=== PATIENT | female | born 1950 | race Caucasian/White ===

== ENCOUNTER 2018-07-23 14:56 | Inpatient (IN) | payer MEDICARE ==
--- NOTE | 2018-07-23 15:40 | ED ---
General Adult HPI - General Chief complaint: Nausea/Vomiting/Diarrhea Stated complaint: Vomiting,headache, fall 2 days ago lt wrist injury Time Seen by Provider: 07/23/18 15:13 Source: patient Mode of arrival: ambulatory Limitations: language barrier - History of Present Illness Initial comments: 67-year-old female with past medical history of hypertension presenting today for chief complaint of headache, nausea vomiting and recent fall. Patient states 4 days prior she fell on ice on left outstretched wrist, she states she did hit her head, denies any loss of conscious. Patient denies any muscle weakness, sensation deficits, visual changes, speech or gait changes. Patient states the days following the fall she felt fine she denied headache at this time. 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 Patient states the stress her out, she states since then she has had a headache. Patient states that early this morning she began to experience vomiting denies any hematemesis. Patient denies any diarrhea, fever , chills, abdominal pain. Patient states she has not taken her blood pressure medication in the past 2 days. Patient states she does have a prescription at home. In addition patient noted that she had left wrist pain since the fall, she noted bruising as well as swelling of the left wrist with decreased range of motion secondary to pain. Remaining review of system negative, patient denies any recent shortness of breath, chest pain, back pain/neck pain, numbness or tingling, dysuria or hematuria, constipation or diarrhea, or any other complaints. Upon arrival pt BP elevated, remaining VS within acceptable limits. - Related Data Home Medications Medication Instructions Recorded Confirmed Nebivolol HCl [Bystolic] 20 mg PO DAILY 07/23/18 07/23/18 Olmesartan/Amlodipin/Hcthiazid 1 tab PO DAILY 07/23/18 07/23/18 [Tribenzor 40-5-12.5 mg Tablet] Allergies Allergy/AdvReac Type Severity Reaction Status Date / Time aspirin Allergy Rash/Hives Verified 07/23/18 15:18 Review of Systems ROS Statement: Those systems with pertinent positive or pertinent negative responses have been documented in the HPI. ROS Other: All systems not noted in ROS Statement are negative. Past Medical History Past Medical History: Hypertension History of Any Multi-Drug Resistant Organisms: None Reported Past Surgical History: Section Past Psychological History: No Psychological Hx Reported Smoking Status: Current every day smoker Past Alcohol Use History: None Reported Past Drug Use History: None Reported General Exam - General Exam Comments Initial Comments: General: The patient is awake and alert, in no distress, and does not appear acutely ill. Eye: +3mm pupils are equal, round and reactive to light, extra-ocular movements are intact. No nystagmus. There is normal conjunctiva bilaterally. No signs of icterus. Ears, nose, mouth and throat: There are moist mucous membranes and no oral lesions. Neck: The neck is supple, there is no tenderness or JVD. Cardiovascular: There is a regular rate and rhythm. No murmur, rub or gallop is appreciated. Respiratory: Lungs are clear to auscultation, respirations are non-labored, breath sounds are equal. No wheezes, stridor, rales, or rhonchi. Gastrointestinal: Soft, non-distended, non-tender abdomen without masses or organomegaly noted. There is no rebound or guarding present. No CVA tenderness. Bowel sounds are unremarkable. Musculoskeletal: Upon inspection of the list bilaterally there is significant soft tissue swelling of the left wrist as well as ecchymosis. Patient is able to range with slight limitation of the left wrist secondary to pain. Patient is tender to palpation over the distal radius. Normal ROM, no tenderness of the right wrist. Strength 5/5. Sensation intact of the upper extremities equal and comparison bilaterally including proximal and distal to injury site. Radial pulses equal bilaterally 2+. Compartments are soft and compressible. Patient is able to make the okay fingers crossed finger opposition thumbs-up extended wrist evidence of wristdrop. Ulnar median and radial nerves appear intact capillary refill less than 2 seconds. Neurological: A&O x 3. CN II-XII intact, There are no obvious motor or sensory deficits. Coordination appears grossly intact. Speech is normal. finger-nose rapid, [id number] coronary. No pronator drift. No gait ataxia. Skin: Skin is warm and dry and no rashes or lesions are noted. Psychiatric: Cooperative, appropriate mood & affect, normal judgment. Limitations: language barrier Course Vital Signs 07/23/18 07/23/18 07/23/18 14:58 16:17 16:40 Temperature 97.5 F L Pulse Rate 71 53 L Respiratory 24 18 Rate Blood Pressure 258/98 232/95 O2 Sat by Pulse 96 95 Oximetry 07/23/18 07/23/18 07/23/18 16:50 17:00 17:10 Temperature Pulse Rate 57 L 57 L 57 L Respiratory 15 19 16 Rate Blood Pressure 232/95 232/95 206/87 O2 Sat by Pulse 98 97 98 Oximetry 07/23/18 07/23/18 07/23/18 17:30 19:07 19:18 Temperature 97.6 F Pulse Rate 55 L 54 L Respiratory 18 16 Rate Blood Pressure 200/85 203/90 O2 Sat by Pulse 97 97 Oximetry EKG Findings - EKG Comments: EKG Findings:: Ventricular rate 54 bpm, AK interval 184 ms, QRS duration 96 ms, QT/QTC 494/468 ms. This is sinus bradycardia. Nonspecific T-wave abnormality. No ST elevation or depression. Medical Decision Making - Medical Decision Making Patient is on a blood pressure with headache nausea vomiting. Distant history of head trauma 4 days ago. No anticoagulant use. There is no acute intracranial process on CT studies. CT imaging studies were reviewed and discussed with attending provider Dr. Olivas. Pt BP remained elevated is noncompliant with medication. Patient was given a total of 10 mg of hydralazine while in the emergency department. Pt did have T wave inversions without elevation of troponin. No ST elevation or depression EKG was reviewed by Dr. Mancini prior to shift change. Cardiology will be placed on consult, will repeat troponin. Pt placed on telemetry. Admission was accepted by physician instruction assistant principal rounding for Dr. Merino, after discussing case with Dr. Olivas. She did not have further orders. Pt remains hypertensive but stable in the ER. Left nondisplaced distal radius fracture was splinted prior to pt transfer to the floor. - Lab Data Result diagrams: 07/23/18 15:25 07/23/18 15:25 Lab Results 07/23/18 07/23/18 07/23/18 Range/Units 15:25 15:25 15:25 WBC 10.5 (3.8-10.6) k/uL RBC 5.57 H (3.80-5.40) m/uL Hgb 16.2 H (11.4-16.0) gm/dL Hct 47.5 H (34.0-46.0) % MCV 85.3 (80.0-100.0) fL MCH 29.0 (25.0-35.0) pg MCHC 34.0 (31.0-37.0) g/dL RDW 13.2 (11.5-15.5) % Plt Count 202 (150-450) k/uL Neutrophils % 88 % Lymphocytes % 8 % Monocytes % 2 % Eosinophils % 1 % Basophils % 0 % Neutrophils # 9.2 H (1.3-7.7) k/uL Lymphocytes # 0.9 L (1.0-4.8) k/uL Monocytes # 0.2 (0-1.0) k/uL Eosinophils # 0.1 (0-0.7) k/uL Basophils # 0.0 (0-0.2) k/uL Sodium 143 (137-145) mmol/L Potassium 3.8 (3.5-5.1) mmol/L Chloride 109 H (98-107) mmol/L Carbon Dioxide 26 (22-30) mmol/L Anion Gap 8 mmol/L BUN 23 H (7-17) mg/dL Creatinine 0.74 (0.52-1.04) mg/dL Est GFR (CKD-EPI)AfAm >90 (>60 ml/min/1.73 sqM) Est GFR (CKD-EPI)NonAf 84 (>60 ml/min/1.73 sqM) Glucose 144 H (74-99) mg/dL Calcium 9.8 (8.4-10.2) mg/dL Total Bilirubin 1.3 (0.2-1.3) mg/dL AST 17 (14-36) U/L ALT 23 (9-52) U/L Alkaline Phosphatase 109 (38-126) U/L Troponin I <0.012 (0.000-0.034) ng/mL Total Protein 7.4 (6.3-8.2) g/dL Albumin 4.4 (3.5-5.0) g/dL Lipase 86 (23-300) U/L Disposition Clinical Impression: Elevated blood pressure reading, Nausea and vomiting, Headache, Distal radius fracture, left Disposition: ADMITTED IP TO THIS [facility] Condition: Stable Is patient prescribed a controlled substance at d/c from ED?: No Time of Disposition: 16:49 Decision to Admit Reason: Admit from EC Decision Date: 07/23/18 Decision Time: 16:49
[2018-07-23 15:44] LABS: Basophils % (A) 0 %; Eosinophils # (A) 0.1 k/uL (0-0.7); Eosinophils % (A) 1 %; HCT 47.5 % (34.0-46.0); HGB 16.2 gm/dL (11.4-16.0); Lymphocytes # (A) 0.9 k/uL (1.0-4.8); Lymphocytes % (A) 8 %; MCV 85.3 fL (80.0-100.0); Mean Platelet Volume 7.6; Monocytes # (A) 0.2 k/uL (0-1.0); Monocytes % (A) 2 %; Neutrophils # (A) 9.2 k/uL (1.3-7.7); Neutrophils % (A) 88 %; Platelet Count 202 k/uL (150-450); RBC 5.57 m/uL (3.80-5.40); RDW 13.2 % (11.5-15.5); WBC 10.5 k/uL (3.8-10.6)
--- NOTE | 2018-07-23 16:01 | CT ---
EXAMINATION TYPE: CT brain sudarshan suero DATE OF EXAM: 07/23/2018 COMPARISON: None HISTORY: Fall with posterior head injury. Head and neck pain CT DLP: 1319.3 mGycm Automated exposure control for dose reduction was used. TECHNIQUE: CT scan of the head and cervical spine are performed without contrast. FINDINGS: Intracranial atherosclerotic changes are noted. There is a area of low attenuation left f rontal lobe compatible with remote ischemia. Moderate generalized degenerative change with a greater frontal lobe component. No acute hemorrhage or mass effect. Extensive calcification involving the int racranial carotid arteries are noted extending in the M1 segment of the right MCA. A nonspecific low attenuation the white matter bilaterally is most typical remote microvascular ischemia. Assessment spinal canal limited by noncontrast technique, resolution and artifact. Multilevel facet a rthropathy and degenerative disc disease with large hypertrophic spurs anteriorly noted. There is a p unctate nodular density within the right lung apex. Short-term follow-up CT scan recommended IMPRESSION: 1. There is no acute fracture or dislocation evident in the cervical spine. 2. No acute intracranial hemorrhage, mass effect, or midline shift is seen. 3. Degenerative and remote ischemic change as discussed above. There is extensive intracranial athero sclerotic changes correlate clinically. 4. A 2 mm right upper lobe pulmonary nodule recommend [address] chest. 5. Extensive large anterior hypertrophic spurs.
[2018-07-23 16:04] LABS: ALT 23 U/L (9-52); AST 17 U/L (14-36); Albumin 4.4 g/dL (3.5-5.0); Alkaline Phosphatase 109 U/L (38-126); Anion Gap 8 mmol/L; Blood Urea Nitrogen 23 mg/dL (7-17); Calcium 9.8 mg/dL (8.4-10.2); Carbon Dioxide 26 mmol/L (22-30); Chloride 109 mmol/L (98-107); Glucose 144 mg/dL (74-99); Lipase 86 U/L (23-300); Potassium 3.8 mmol/L (3.5-5.1); Sodium 143 mmol/L (137-145); Total Bilirubin 1.3 mg/dL (0.2-1.3); Total Protein 7.4 g/dL (6.3-8.2)
[2018-07-23] MEDS ORDERED: ONDANSETRON 4 MG/2 ML VIAL IVP STA (16:04)
[2018-07-23] MEDS ORDERED: hydrALAZINE HCL 20 MG/ML 1 ML VIAL IVP STA ×2 (16:18→18:06)
--- NOTE | 2018-07-23 16:25 | XR ---
EXAMINATION TYPE: XR chest 2V DATE OF EXAM: 07/23/2018 COMPARISON: None HISTORY: Cough, trauma and pain TECHNIQUE: Frontal and lateral views of the chest are obtained. FINDINGS: There is no focal air space opacity, pleural effusion, or pneumothorax seen. The cardiac silhouette size is enlarged. Linear increased density compatible with minor fissure thickening noted on the right. Arthropathy noted in the shoulders. There are overlying artifacts. The aorta is dense. The osseous structures are intact. IMPRESSION: Cardiomegaly
--- NOTE | 2018-07-23 16:29 | XR ---
EXAMINATION TYPE: XR hand complete LT DATE OF EXAM: 07/23/2018 COMPARISON: NONE HISTORY: Pain TECHNIQUE: Three views are submitted. FINDINGS: Diffuse osteopenia. Arthropathy of the PIP and DIP joints of all digits. Severe arthropathy of the fi rst carpal metacarpal joint. Appears to be a fracture involving the distal radius. IMPRESSION: 1. Diffuse osteopenia with a suspected fracture involving the distal radius.
--- NOTE | 2018-07-23 16:30 | XR ---
EXAMINATION TYPE: XR wrist complete LT DATE OF EXAM: 07/23/2018 COMPARISON: NONE HISTORY: Pain TECHNIQUE: Four views submitted. FINDINGS: There is arthropathy of the first carpal metacarpal joint. Diffuse osteopenia. There is a cortical st ep-off involving the distal radius suspicious for fracture with adjacent soft tissue edema. Cortical step-off particularly noted along the posterior surface of the radius on the lateral view. IMPRESSION: 1. Findings suggestive of a fracture minimally displaced distal radius extending toward the articular surface.
[2018-07-23] MEDS ORDERED: NALOXONE 0.4 MG/ML 1 ML VIAL IV PRN (16:47)
[2018-07-23 19:43] VITALS: BMI 29.0
[2018-07-23] MEDS: NITROGLYCERIN SL TABS 0.4 MG TAB SUBLINGUAL STA ×2 (19:51→19:58)
[2018-07-23] MEDS ORDERED: DILTIAZEM DRIP BOLUS FROM BAG 1 MG SOLN IV ONE (20:29)
[2018-07-23] MEDS ORDERED: HEPARIN SODIUM,PORCINE 5,000 UNIT/ML 1 ML VIAL IV PRN (20:34)
[2018-07-23] MEDS ORDERED: HEPARIN SODIUM,PORCINE 5,000 UNIT/ML 1 ML VIAL IV ONE (20:34)
[2018-07-23] MEDS ORDERED: ACETAMINOPHEN TAB 325 MG TAB PO PRN (21:00)
[2018-07-23] MEDS ORDERED: ONDANSETRON 4 MG/2 ML VIAL IVP PRN (21:00)
[2018-07-23] MEDS ORDERED: OLMESARTAN PO SCH (21:00)
[2018-07-23] MEDS ORDERED: HCTHIAZID PO SCH (21:00)
[2018-07-23] MEDS ORDERED: AMLODIPIN PO SCH (21:00)
[2018-07-23] MEDS ORDERED: [UNRECOGNIZED DRUG - OTHER] PO SCH (21:00)
[2018-07-23] MEDS ORDERED: LOSARTAN 50 MG TAB PO SCH (21:20)
[2018-07-23] MEDS ORDERED: amLODIPine 5 MG TAB PO SCH (21:20)
[2018-07-23] MEDS: HEPARIN SOD,PORK IN 0.45% NACL 25,000 UNIT in 0.45% NACL 1 250ML.BAG IV SCH (21:30)
[2018-07-23] MEDS: DILTIAZEM 125 MG in SODIUM CHLORIDE 0.9% 100 ML IV SCH (21:31)
[2018-07-23] MEDS: SODIUM CHLORIDE 0.9% 1,000 ML IV SCH (21:31)
[2018-07-23] MEDS: HYDROCHLOROTHIAZIDE 12.5 MG CAP PO SCH (22:32)
[2018-07-24 04:35] LABS: Basophils % (A) 0 %; Eosinophils % (A) 0 %; HCT 44.2 % (34.0-46.0); HGB 14.4 gm/dL (11.4-16.0); Lymphocytes # (A) 1.1 k/uL (1.0-4.8); Lymphocytes % (A) 10 %; MCH 28.8 pg (25.0-35.0); MCHC 32.6 g/dL (31.0-37.0); MCV 88.4 fL (80.0-100.0); Mean Platelet Volume 7.7; Monocytes # (A) 0.4 k/uL (0-1.0); Monocytes % (A) 4 %; Neutrophils # (A) 9.4 k/uL (1.3-7.7); Neutrophils % (A) 85 %; Platelet Count 188 k/uL (150-450); RDW 13.6 % (11.5-15.5)
[2018-07-24 04:42] LABS: Anion Gap 7 mmol/L; Blood Urea Nitrogen 26 mg/dL (7-17); Calcium 9.1 mg/dL (8.4-10.2); Carbon Dioxide 26 mmol/L (22-30); Chloride 108 mmol/L (98-107); Glucose 106 mg/dL (74-99); Potassium 3.6 mmol/L (3.5-5.1); Sodium 141 mmol/L (137-145)
[2018-07-24] MEDS: LOSARTAN 50 MG TAB PO SCH (08:36)
[2018-07-24] MEDS: DILTIAZEM 125 MG in SODIUM CHLORIDE 0.9% 100 ML IV SCH (08:36)
[2018-07-24] MEDS: HYDROCHLOROTHIAZIDE 12.5 MG CAP PO SCH (08:36)
--- NOTE | 2018-07-24 09:27 | P.CRDCN ---
History of Present Illness Consult date: 07/24/18 Requesting physician: Violette Merino Consult reason: chest pain, hypertension, atrial fibrillation Chief complaint: Dizziness History of present illness: This is a 67-year-old female with known history of hypertension, nondiabetic, no hyperlipidemia, nicotine dependence, who presented to the hospital on this occasion with symptoms of dizziness with associated nausea and vomiting. She did have a fall a few days prior to her admission here, patient also had not taken her blood pressure medication for the past 2 days prior to her admission here. While in the hospital here patient states she had an episode of chest discomfort which radiated up into her neck and jaw area. Her initial EKG on presentation here showed a sinus bradycardia with evidence of left ventricular hypertrophy, T wave inversion noted in the inferior and lateral leads. Around 7:30 last evening patient went into atrial fibrillation with a rapid ventricular response, she was initiated on IV heparin and Cardizem drip. At 11:00 she converted back to normal sinus rhythm and continues to have T-wave inversion noted in the inferior lateral leads. Patient denies any prior history of atrial fibrillation in the past. Her blood pressure on arrival here was 258/98, heart rate in the 70s, 96% on room air. Blood pressure this morning 152/70 with a heart rate in the 60s, 96% on room air. White blood cell count 10.5 on admission, 11 this morning, hemoglobin 16.2 on admission, 14.4 this morning. Platelet count 188. Sodium 141, potassium 3.6, BUN 26 and creatinine 0.5. Initial troponin 0.012, subsequent troponin 0.601. Chest x-ray showed cardiomegaly with no cardiopulmonary process which appears to be acute. A CAT scan of the neck and spine was performed which did not reveal acute fracture or dislocation of the spine, no acute intracranial hemorrhage or mass effect or midline shift noted. A 2 mm right upper lobe pulmonary nodule was noted. Extensive large anterior hypertrophic spurs noted. Left hand x-ray shows diffuse osteopenia with suspected fracture involving the distal radius. Wrist fracture shows fracture minimally displaced distal radius extending towards the articular surface. At the time of my examination this morning, patient is quite comfortable. Denies any dizziness at present. No chest discomfort at present. Currently in normal sinus rhythm. Past Medical History Past Medical History: Hypertension History of Any Multi-Drug Resistant Organisms: None Reported Past Surgical History: Section Past Anesthesia/Blood Transfusion Reactions: No Reported Reaction Past Psychological History: No Psychological Hx Reported Smoking Status: Current every day smoker Past Alcohol Use History: None Reported Past Drug Use History: None Reported - Past Family History Father Family Medical History: CVA/TIA Mother Family Medical History: No Reported History Medications and Allergies Home Medications Medication Instructions Recorded Confirmed Type Nebivolol HCl [Bystolic] 20 mg PO DAILY 07/23/18 07/23/18 History Olmesartan/Amlodipin/Hcthiazid 1 tab PO DAILY 07/23/18 07/23/18 History [Tribenzor 40-5-12.5 mg Tablet] Allergies Allergy/AdvReac Type Severity Reaction Status Date / Time aspirin Allergy Rash/Hives Verified 07/23/18 15:18 Physical Exam Vitals: Vital Signs Temp Pulse Pulse Resp BP BP Pulse Ox 07/24/18 04:00 98.5 F 64 18 152/70 96 07/24/18 00:00 97.7 F 68 18 155/70 96 07/23/18 22:25 177/111 07/23/18 21:30 163/112 07/23/18 20:40 169/106 07/23/18 19:30 98.3 F 124 H 18 221/100 95 07/23/18 19:18 97.6 F 54 L 16 97 07/23/18 19:07 203/90 07/23/18 18:00 98.3 F 123 H 17 209/111 95 07/23/18 17:30 55 L 18 200/85 97 07/23/18 17:10 57 L 16 206/87 98 07/23/18 17:00 57 L 19 232/95 97 07/23/18 16:50 57 L 15 232/95 98 07/23/18 16:40 53 L 18 232/95 95 07/23/18 16:17 258/98 07/23/18 14:58 97.5 F L 71 24 96 Intake and Output 07/23/18 07/24/18 07/24/18 22:59 06:59 14:59 Intake Total 10 350.833 Balance 10 350.833 Intake: IV 10 Invasive Line 1 10 Intake, IV Titration 110.833 Amount Diltiazem 125 mg In 110.833 Sodium Chloride 0.9% 100 ml @ 10 MG/HR 10 mls/hr IV .[id number] JAVON Rx#: [id number] Oral 240 Other: # Voids 2 Weight 78.1 kg PHYSICAL EXAMINATION: GENERAL: 67-year-old female in no acute distress at the time of my examination HEENT: Head is atraumatic, normocephalic. Pupils equal, round. Sclera a nicteric. Conjunctiva are clear. Mucous membranes of the mouth are moist. Neck is supple. There is no elevated jugular venous pressure. No carotid bruit is heard. HEART EXAMINATION: Heart S1, S2 normal. No murmur or gallop heard. CHEST EXAMINATION: Lungs are clear to auscultation and precussion. No chest wall tenderness is noted on palpation or with deep breathing. ABDOMEN: Soft, nontender. Bowel sounds are heard. No organomegaly noted. EXTREMITIES: 2+ peripheral pulses with no evidence of peripheral edema and no calf tenderness noted. Patient does have an [place] wrap cast applied to the left wrist. NEUROLOGIC patient is awake, alert and oriented 3. . Results 07/24/18 03:59 07/24/18 03:59 Cardiac Enzymes 07/23/18 07/23/18 07/24/18 Range/Units 15:25 15:25 06:09 AST 17 (14-36) U/L Troponin I <0.012 0.601 H* (0.000-0.034) ng/mL Coagulation 07/23/18 07/24/18 Range/Units 20:30 03:53 APTT 24.1 60.0 H (22.0-30.0) sec CBC 07/23/18 07/24/18 Range/Units 15:25 03:59 WBC 10.5 11.0 H (3.8-10.6) k/uL RBC 5.57 H 5.00 (3.80-5.40) m/uL Hgb 16.2 H 14.4 (11.4-16.0) gm/dL Hct 47.5 H 44.2 (34.0-46.0) % Plt Count 202 188 (150-450) k/uL Comprehensive Metabolic Panel 07/23/18 07/24/18 Range/Units 15:25 03:59 Sodium 143 141 (137-145) mmol/L Potassium 3.8 3.6 (3.5-5.1) mmol/L Chloride 109 H 108 H (98-107) mmol/L Carbon Dioxide 26 26 (22-30) mmol/L BUN 23 H 26 H (7-17) mg/dL Creatinine 0.74 0.75 (0.52-1.04) mg/dL Glucose 144 H 106 H (74-99) mg/dL Calcium 9.8 9.1 (8.4-10.2) mg/dL AST 17 (14-36) U/L ALT 23 (9-52) U/L Alkaline Phosphatase 109 (38-126) U/L Total Protein 7.4 (6.3-8.2) g/dL Albumin 4.4 (3.5-5.0) g/dL Current Medications Generic Name Dose Route Start Last Admin Trade Name Freq PRN Reason Stop Dose Admin Acetaminophen 650 mg 07/23/18 21:00 Tylenol Tab PO Q4HR PRN Fever and/ or Pain Heparin Sodium (Porcine) 0 unit 07/23/18 20:34 Heparin IV PER PROTOCOL PRN Low PTT Protocol Hydrochlorothiazide 12.5 mg 07/23/18 21:20 07/24/18 08:36 Hydrodiuril PO 12.5 mg DAILY JAVON Administration Sodium Chloride 1,000 mls @ 20 mls/hr 07/23/18 17:00 07/23/18 21:31 Saline 0.9% IV Not Given .Q24H JAVON Diltiazem HCl 125 mg/ Sodium 125 mls @ 10 mls/hr 07/23/18 20:30 07/24/18 08:36 Chloride IV 10 mg/hr .[id number] JAVON 10 mls/hr Administration 10 MG/HR Heparin Sodium/Sodium Chloride 250 mls @ 9.79 mls/hr 07/23/18 20:45 07/23/18 21:30 25,000 unit/ Sodium Chloride IV 12 units/kg/hr .Q24H JAVON 9.79 mls/hr Administration Protocol 12 UNITS/KG/HR Losartan Potassium 100 mg 07/24/18 09:00 07/24/18 08:36 Cozaar PO 100 mg DAILY JAVON Administration Naloxone HCl 0.2 mg 07/23/18 16:47 Narcan IV Q2M PRN Opioid Reversal Ondansetron HCl 4 mg 07/23/18 21:00 Zofran IVP Q6HR PRN Nausea And Vomiting Intake and Output 07/23/18 07/24/18 07/24/18 22:59 06:59 14:59 Intake Total 10 350.833 Balance 10 350.833 Intake: IV 10 Invasive Line 1 10 Intake, IV Titration 110.833 Amount Diltiazem 125 mg In 110.833 Sodium Chloride 0.9% 100 ml @ 10 MG/HR 10 mls/hr IV .[id number] JAVON Rx#: [id number] Oral 240 Other: # Voids 2 Weight 78.1 kg 07/24/18 03:59 07/24/18 03:59 EKG Interpretations (text) Initial EKG shows normal sinus rhythm with ST-T wave changes noted in the inferior lateral leads. Evidence of left ventricular hypertrophy. Subsequent EKG showed atrial fibrillation with rapid ventricular response, 30 EKG shows normal sinus rhythm with similar changes in the inferior lateral leads. Assessment and Plan Plan: Assessment and plan #1 symptoms of dizziness with associated nausea and vomiting #2 atrial fibrillation with rapid ventricular response, paroxysmal, patient currently in normal sinus rhythm #3 hypertensive urgency #4 history of hypertension #5 nicotine dependence #6 episode of chest discomfort with radiation to the jaw, could be secondary to atrial fibrillation with rapid ventricular response, cannot completely rule out underlying coronary artery disease. Initial troponin 0.012, subsequent troponin 0.601. Plan We will obtain an echocardiogram with Doppler study as well as a third troponin value. Continue IV heparin at this time and start the patient on a baby aspirin. We will also continue the losartan, discontinue Cardizem drip and start the patient on a beta john. We will also initiate a statin and obtain a fasting lipid profile. Further recommendations to follow. DNP note has been reviewed, I agree with a documented findings and plan of care. Patient was seen and examined.
[2018-07-24 09:58] LABS: Cholesterol 170 mg/dL (<200); HDL Cholesterol 58 mg/dL (40-60); LDL Cholesterol,Calculated 97 mg/dL (0-99); Triglycerides 73 mg/dL (<150)
[2018-07-24] MEDS: METOPROLOL TARTRATE 25 MG TAB PO SCH ×3 (10:59→22:01)
--- NOTE | 2018-07-24 11:24 | P.HPIM ---
History of Present Illness H&P Date: 07/24/18 This very pleasant for 67-year-old female with a past medical history significant for hypertension, hyperlipidemia comes into the hospital for above- mentioned complaints patient says that she is very upset at the severity of state as after waiting for 2 hours they failed her and the vision test and she did not renew her license. She left upset and she started having lightheadedness dizziness and then started having nausea vomiting. She said that she had a fall a few days ago and hit her head at that time she had not any headache. Last night the patient started having chest discomfort radiating to her neck and jaw. EKG was done which showed A. fib with RVR. Patient was thus started on IV heparin Cardizem drip. At this time of examination, the patient is not complaining of any chest pain racing heart says that she's feeling better, no cough or shortness of breath, nausea vomiting is better and she is able to eat now. No tingling numbness of his extremities, and no itch or rash. Review of Systems All systems: negative Past Medical History Past Medical History: Hypertension History of Any Multi-Drug Resistant Organisms: None Reported Past Surgical History: Section Past Anesthesia/Blood Transfusion Reactions: No Reported Reaction Past Psychological History: No Psychological Hx Reported Smoking Status: Current every day smoker Past Alcohol Use History: None Reported Past Drug Use History: None Reported - Past Family History Father Family Medical History: CVA/TIA Mother Family Medical History: No Reported History Medications and Allergies Home Medications Medication Instructions Recorded Confirmed Type Nebivolol HCl [Bystolic] 20 mg PO DAILY 07/23/18 07/23/18 History Olmesartan/Amlodipin/Hcthiazid 1 tab PO DAILY 07/23/18 07/23/18 History [Tribenzor 40-5-12.5 mg Tablet] Allergies Allergy/AdvReac Type Severity Reaction Status Date / Time aspirin Allergy Rash/Hives Verified 07/23/18 15:18 Physical Exam Vitals: Vital Signs Temp Pulse Pulse Resp BP BP Pulse Ox 07/24/18 08:00 97.9 F 62 18 159/71 94 L 07/24/18 04:00 98.5 F 64 18 152/70 96 07/24/18 00:00 97.7 F 68 18 155/70 96 07/23/18 22:25 177/111 07/23/18 21:30 163/112 07/23/18 20:40 169/106 07/23/18 19:30 98.3 F 124 H 18 221/100 95 07/23/18 19:18 97.6 F 54 L 16 97 07/23/18 19:07 203/90 07/23/18 18:00 98.3 F 123 H 17 209/111 95 07/23/18 17:30 55 L 18 200/85 97 07/23/18 17:10 57 L 16 206/87 98 07/23/18 17:00 57 L 19 232/95 97 07/23/18 16:50 57 L 15 232/95 98 07/23/18 16:40 53 L 18 232/95 95 07/23/18 16:17 258/98 07/23/18 14:58 97.5 F L 71 24 96 Intake and Output 07/23/18 07/24/18 07/24/18 22:59 06:59 14:59 Intake Total 10 438.833 Balance 10 438.833 Intake: IV 10 Invasive Line 1 10 Intake, IV Titration 198.833 Amount Diltiazem 125 mg In 110.833 Sodium Chloride 0.9% 100 ml @ 10 MG/HR 10 mls/hr IV .[id number] [facility] Rx#: [id number] Heparin Sod,Pork in 0.45% 28 NaCl 25,000 unit In 0.45 % NaCl 1 250ml.bag @ 12 UNITS/KG/HR 9.79 mls/hr IV .Q24H [facility] Rx#: [id number] Sodium Chloride 0.9% 1, 60 000 ml @ 20 mls/hr IV . Q24H [facility] Rx#:[id number] Oral 240 Other: # Voids 2 1 Weight 78.1 kg On exam, alert and oriented x3. HEENT: Conjunctivae normal. eyes normal. NECK: No JVD. No thyroid enlargement. No LNs CARDIOVASCULAR: S1, S2 muffled. No murmur RESPIRATION: Breath sounds diminished in the bases. No rhonchi or crackles. No bronchial breathing. ABDOMEN: Soft, nontender . No guarding. no masses palpable. No ascites, No hepatosplenomegaly.Bowel sounds heard. LEGS: No edema. no swelling NERVOUS SYSTEM: Cranial N 2-12 grossly normal. Moves all 4 limbs. No focal deficits. No sensory deficit. No signs of cerebellar dysfucntion. Skin: no ulcer no rash Joints: No active swelling. No inflammation. Lymphatic system. No LN neck axilla or groin. Results CBC & Chem 7: 07/24/18 03:59 07/24/18 03:59 Labs: Abnormal Lab Results - Last 24 Hours (Table) 07/23/18 07/23/18 07/24/18 Range/Units 15:25 15:25 03:53 WBC (3.8-10.6) k/uL RBC 5.57 H (3.80-5.40) m/uL Hgb 16.2 H (11.4-16.0) gm/dL Hct 47.5 H (34.0-46.0) % Neutrophils # 9.2 H (1.3-7.7) k/uL Lymphocytes # 0.9 L (1.0-4.8) k/uL APTT 60.0 H (22.0-30.0) sec Chloride 109 H (98-107) mmol/L BUN 23 H (7-17) mg/dL Glucose 144 H (74-99) mg/dL Troponin I (0.000-0.034) ng/mL 07/24/18 07/24/18 07/24/18 Range/Units 03:59 03:59 06:09 WBC 11.0 H (3.8-10.6) k/uL RBC (3.80-5.40) m/uL Hgb (11.4-16.0) gm/dL Hct (34.0-46.0) % Neutrophils # 9.4 H (1.3-7.7) k/uL Lymphocytes # (1.0-4.8) k/uL APTT (22.0-30.0) sec Chloride 108 H (98-107) mmol/L BUN 26 H (7-17) mg/dL Glucose 106 H (74-99) mg/dL Troponin I 0.601 H* (0.000-0.034) ng/mL Thrombosis Risk Factor Assmnt - Choose All That Apply Any of the Below Risk Factors Present?: Yes Each Factor Represents 1 point: Obesity (BMI >25) Other Risk Factors: Yes Each Risk Factor Represents 2 Points: Age 61-74 years Other congenital or acquired thrombophilia - If yes, enter type in comment: No Thrombosis Risk Factor Assessment Total Risk Factor Score: 3 Thrombosis Risk Factor Assessment Level: Moderate Risk Assessment and Plan Assessment: - Chest pain rule out non-STEMI - A. fib with RVR - Fraction of the left radius minimally displaced - Hypertension - Questionable compliance with medication - Hyperlipidemia - Nicotine dependence Plan - We'll admit the patient to [facility] with telemetry - We'll continue IV heparin - Continue present medications for now - Cardiology on board - Echocardiogram ordered - Continue splinting of the left wrist - DVT and GI prophylaxis - Patient is full code Time with Patient: Greater than 30
[2018-07-24] MEDS: amLODIPine 10 MG TAB PO SCH (11:32)
[2018-07-24] MEDS ORDERED: cloNIDine 0.1 MG/24HR PATCH TRANSDERM SCH (15:00)
--- NOTE | 2018-07-24 16:52 | ECHOF ---
Referral Reason:abn trop MEASUREMENTS -------- HEIGHT: 167.6 cm WEIGHT: 80.7 kg BP: IVSd: 1.8 cm (0.6 - 1.1) LVIDd: 3.7 cm (3.9 - 5.3) LVPWd: 2.1 cm (0.6 - 1.1) IVSs: 2.2 cm LVIDs: 2.3 cm LVPWs: 2.3 cm LAESV Index (A-L): 36.84 ml/m Ao Diam: 2.7 cm (2.0 - 3.7) AV Cusp: 1.9 cm (1.5 - 2.6) LA Diam: 3.2 cm (2.7 - 3.8) MV EXCURSION: 16.312 mm (> 18.000) MV EF SLOPE: 74 mm/s (70 - 150) EPSS: 0.7 cm MV E Shakir: 0.99 m/s MV DecT: 255 ms MV A Shakir: 0.71 m/s MV E/A Ratio: 1.39 RAP: 5.00 mmHg RVSP: 28.48 mmHg FINDINGS -------- Sinus rhythm. This was a technically good study. The left ventricular size is normal. There is severe concentric left ventricular hypertrophy. Ove rall left ventricular systolic function is normal with, an EF between 55 - 60 %. The right ventricle is normal in size and function. LA is moderately dilated 34-39 ml/m2 The right atrium is normal in size. Aortic valve is trileaflet and is mildly thickened. Mild mitral regurgitation is present. Mild tricuspid regurgitation present. The right ventricular systolic pressure, as measured by Doppl er, is 28.48mmHg. Pulmonic valve appears structurally normal. The aortic root size is normal. Normal inferior vena cava with normal inspiratory collapse consistent with estimated right atrial pre ssure of 5 mmHg. The pericardium is normal. CONCLUSIONS -------- 1. Sinus rhythm. 2. This was a technically good study. 3. The left ventricular size is normal. 4. There is severe concentric left ventricular hypertrophy. 5. Overall left ventricular systolic function is normal with, an EF between 55 - 60 %. 6. The right ventricle is normal in size and function. 7. LA is moderately dilated 34-39 ml/m2 8. The right atrium is normal in size. 9. Aortic valve is trileaflet and is mildly thickened. 10. Mild mitral regurgitation is present. 11. Mild tricuspid regurgitation present. 12. The right ventricular systolic pressure, as measured by Doppler, is 28.48mmHg. 13. Pulmonic valve appears structurally normal. 14. The aortic root size is normal. 15. Normal inferior vena cava with normal inspiratory collapse consistent with estimated right atrial pressure of 5 mmHg. 16. The pericardium is normal. MACHINE CLOTHING REPLACER: Vera Campos RDCS
[2018-07-24] MEDS: SODIUM CHLORIDE 0.9% 1,000 ML IV SCH (21:52)
[2018-07-24] MEDS: HEPARIN SOD,PORK IN 0.45% NACL 25,000 UNIT in 0.45% NACL 1 250ML.BAG IV SCH (22:00)
[2018-07-24] MEDS: ATORVASTATIN 80 MG TAB PO SCH (22:01)
[2018-07-24] MEDS: cloNIDine HCL 0.1 MG TAB PO PRN (22:41)
[2018-07-24] MEDS: hydrALAZINE HCL 20 MG/ML 1 ML VIAL IVP PRN (23:49)
[2018-07-25] MEDS: cloNIDine HCL 0.1 MG TAB PO PRN (03:28)
[2018-07-25 07:36] LABS: Basophils # (A) 0.1 k/uL (0-0.2); Basophils % (A) 1 %; Eosinophils # (A) 0.1 k/uL (0-0.7); Eosinophils % (A) 1 %; HCT 41.9 % (34.0-46.0); HGB 14.2 gm/dL (11.4-16.0); Lymphocytes # (A) 1.4 k/uL (1.0-4.8); Lymphocytes % (A) 15 %; MCHC 33.8 g/dL (31.0-37.0); MCV 85.8 fL (80.0-100.0); Mean Platelet Volume 7.1; Monocytes # (A) 0.3 k/uL (0-1.0); Monocytes % (A) 3 %; Neutrophils # (A) 7.3 k/uL (1.3-7.7); Neutrophils % (A) 79 %; Platelet Count 184 k/uL (150-450); RBC 4.88 m/uL (3.80-5.40); RDW 13.3 % (11.5-15.5); WBC 9.2 k/uL (3.8-10.6)
[2018-07-25] MEDS: METOPROLOL TARTRATE 25 MG TAB PO SCH ×2 (08:18→20:55)
[2018-07-25] MEDS: amLODIPine 10 MG TAB PO SCH (08:18)
[2018-07-25] MEDS: HYDROCHLOROTHIAZIDE 12.5 MG CAP PO SCH (08:18)
[2018-07-25] MEDS: LOSARTAN 50 MG TAB PO SCH (08:18)
[2018-07-25] MEDS: hydrALAZINE HCL 20 MG/ML 1 ML VIAL IVP PRN (11:03)
--- NOTE | 2018-07-25 11:19 | P.PN ---
Subjective Patient says that she's complaining of dizziness on standing Blood Pressure slightly better controlled today Patient comparison no chest pain or racing heart, no cough or shortness of breath Objective - Vital Signs Vital signs: Vital Signs Temp 96.7 F L 07/25/18 08:00 Pulse 54 L 07/25/18 08:00 Resp 18 07/25/18 08:00 BP 164/74 07/25/18 08:00 Pulse Ox 95 07/25/18 08:00 Intake & Output 07/24/18 07/25/18 07/25/18 18:59 06:59 18:59 Intake Total 558.833 239.855 360 Balance 558.833 239.855 360 Weight 78.7 kg Intake: Intake, IV Titration 198.833 239.855 Amount Diltiazem 125 mg In 110.833 Sodium Chloride 0.9% 100 ml @ 10 MG/HR 10 mls/hr IV .[id number] [facility] Rx#: [id number] Heparin Sod,Pork in 0.45% 28 239.855 NaCl 25,000 unit In 0.45 % NaCl 1 250ml.bag @ 12 UNITS/KG/HR 9.79 mls/hr IV .Q24H [facility] Rx#: [id number] Sodium Chloride 0.9% 1, 60 000 ml @ 20 mls/hr IV . Q24H [facility] Rx#:[id number] Oral 360 360 Other: # Voids 1 1 - Exam On exam, alert and oriented x3. HEENT: Conjunctivae normal. eyes normal. NECK: No JVD. No thyroid enlargement. No LNs CARDIOVASCULAR: S1, S2 muffled. No murmur RESPIRATION: Breath sounds diminished in the bases. No rhonchi or crackles. No bronchial breathing. ABDOMEN: Soft, nontender . No guarding. no masses palpable. No ascites, No hepatosplenomegaly.Bowel sounds heard. LEGS: No edema. no swelling NERVOUS SYSTEM: Cranial N 2-12 grossly normal. Moves all 4 limbs. No focal deficits. No sensory deficit. No signs of cerebellar dysfucntion. Skin: no ulcer no rash J - Labs CBC & Chem 7: 07/25/18 07:04 07/24/18 03:59 Labs: Abnormal Lab Results - Last 24 Hours (Table) 07/24/18 07/24/18 Range/Units 12:04 17:47 Troponin I 0.380 H* 0.320 H* (0.000-0.034) ng/mL Assessment and Plan Assessment: - Chest pain rule out non-STEMI - A. fib with RVR - Fraction of the left radius minimally displaced - Hypertension - Questionable compliance with medication - Hyperlipidemia - Nicotine dependence Plan - Continue the blood pressure medications - Continue heparin - Troponins elevated - Patient going for a heart cath tomorrow - We'll continue to follow the patient Time with Patient: Greater than 30
[2018-07-25] MEDS ORDERED: SODIUM CHLORIDE 0.9% 1,000 ML in EMPTY BAG 1 BAG IV ONE (12:20)
[2018-07-25] MEDS ORDERED: ALPRAZolam 0.25 MG TAB PO PRN (12:20)
[2018-07-25] MEDS ORDERED: NITROGLYCERIN SL TABS 0.4 MG TAB SUBLINGUAL PRN (12:20)
--- NOTE | 2018-07-25 12:25 | P.PN ---
Subjective This is a pleasant 67-year-old female past medical history significant for hypertension. She developed an episode of chest discomfort with EKG changes and troponin elevation. She also had an episode of atrial fibrillation with rapid ventricular response. She is seen and examined resting comfortably in bed in no acute distress. She denies any further symptoms of chest discomfort. Blood pressure is much better controlled. Currently maintained on amlodipine 10 mg daily, atorvastatin 80 mg daily, clonidine 0.1 mg patch, hydrochlorothiazide 12.5 mg daily, losartan 100 mg daily, Lopressor 25 mg 3 times a day and heparin infusion. blood pressure 189/80 heart rate 48 afebrile maintaining oxygen saturation on room air. echocardiogram obtained reveals preserved left ventricular systolic function with ejection fraction 55- 60%, left atrium is moderately dilated, mild MR and mild TR. GENERAL: Well-appearing, well-nourished and in no acute distress. NECK: Supple without JVD or thyromegaly. LUNGS: Breath sounds clear to auscultation bilaterally. Respiration equal and unlabored. No wheezes, rales or rhonchi. HEART: Regular rate and rhythm without murmurs, rubs or gallops. S1 and S2 heard. EXTREMITIES: Normal range of motion, no edema. No clubbing or cyanosis. Peripheral pulses intact. ASSESSMENT non-ST elevated myocardial infarction Paroxysmal atrial fibrillation, currently maintaining sinus mechanism Hypertension, uncontrolled Chronic nicotine dependence PLAN Recommend proceeding with cardiac catheterization tomorrow morning to further assess coronary arteries for obstructive disease. I have discussed the risks, benefits and alternative therapies for the above-mentioned procedure and for both sedation/analgesia as well as necessary blood product administration, if indicated, as they pertain to this patient. The patient has indicated understanding and acceptance of the risks and procedures discussed. Questions have been answered appropriately and she is agreeable to move forward with above stated procedure. Decrease lopressor to BID for bradycardia. PRN hydralazine and clonidine added per primary care team. Will place her on schedule dosing of hydralazine at 25 mg BID. This can be increased as needed for ongoing uncontrolled hypertension. Further recommendations to follow based on clinical course. Nurse Practitioner note has been reviewed, I agree with a documented findings and plan of care. Patient was seen and examined. Objective - Vital Signs Vital signs: Vital Signs Temp 98.0 F 07/25/18 12:00 Pulse 48 L 07/25/18 12:00 Resp 18 07/25/18 12:00 BP 189/80 07/25/18 12:00 Pulse Ox 95 07/25/18 12:00 Intake & Output 07/24/18 07/25/18 07/25/18 18:59 06:59 18:59 Intake Total 558.833 239.855 360 Balance 558.833 239.855 360 Weight 78.7 kg Intake: Intake, IV Titration 198.833 239.855 Amount Diltiazem 125 mg In 110.833 Sodium Chloride 0.9% 100 ml @ 10 MG/HR 10 mls/hr IV .[id number] [facility] Rx#: [id number] Heparin Sod,Pork in 0.45% 28 239.855 NaCl 25,000 unit In 0.45 % NaCl 1 250ml.bag @ 12 UNITS/KG/HR 9.79 mls/hr IV .Q24H [facility] Rx#: [id number] Sodium Chloride 0.9% 1, 60 000 ml @ 20 mls/hr IV . Q24H [facility] Rx#:[id number] Oral 360 360 Other: # Voids 1 1 - Labs CBC & Chem 7: 07/25/18 07:04 07/24/18 03:59 Labs: Abnormal Lab Results - Last 24 Hours (Table) 07/24/18 07/24/18 07/25/18 Range/Units 12:04 17:47 11:17 APTT 62.7 H (22.0-30.0) sec Troponin I 0.380 H* 0.320 H* (0.000-0.034) ng/mL
[2018-07-25] MEDS: hydrALAZINE HCL 25 MG TAB PO SCH ×2 (12:37→20:53)
[2018-07-25] MEDS: ALPRAZolam 0.5 MG TAB PO PRN ×3 (12:37→22:53)
[2018-07-25] MEDS: SODIUM CHLORIDE 0.9% 1,000 ML IV SCH (15:32)
[2018-07-25] MEDS: ATORVASTATIN 80 MG TAB PO SCH (20:53)
[2018-07-25] MEDS: HEPARIN SOD,PORK IN 0.45% NACL 25,000 UNIT in 0.45% NACL 1 250ML.BAG IV SCH (22:55)
[2018-07-26] MEDS: METOPROLOL TARTRATE 25 MG TAB PO SCH (05:33)
[2018-07-26] MEDS: LOSARTAN 50 MG TAB PO SCH (05:33)
[2018-07-26] MEDS: hydrALAZINE HCL 25 MG TAB PO SCH ×2 (05:34→20:00)
[2018-07-26] MEDS: HYDROCHLOROTHIAZIDE 12.5 MG CAP PO SCH (05:34)
[2018-07-26] MEDS: amLODIPine 10 MG TAB PO SCH (05:34)
[2018-07-26 07:56] LABS: Basophils # (A) 0.1 k/uL (0-0.2); Basophils % (A) 1 %; Eosinophils # (A) 0.2 k/uL (0-0.7); Eosinophils % (A) 3 %; HCT 44.6 % (34.0-46.0); HGB 14.9 gm/dL (11.4-16.0); Lymphocytes % (A) 13 %; MCH 28.8 pg (25.0-35.0); MCHC 33.4 g/dL (31.0-37.0); MCV 86.1 fL (80.0-100.0); Mean Platelet Volume 7.7; Monocytes # (A) 0.4 k/uL (0-1.0); Monocytes % (A) 5 %; Neutrophils % (A) 78 %; Platelet Count 169 k/uL (150-450); RBC 5.18 m/uL (3.80-5.40); RDW 13.4 % (11.5-15.5); WBC 7.7 k/uL (3.8-10.6)
[2018-07-26 08:20] LABS: Anion Gap 2 mmol/L; Blood Urea Nitrogen 17 mg/dL (7-17); Calcium 8.9 mg/dL (8.4-10.2); Carbon Dioxide 28 mmol/L (22-30); Chloride 107 mmol/L (98-107); Glucose 109 mg/dL (74-99); Potassium 3.2 mmol/L (3.5-5.1); Sodium 137 mmol/L (137-145)
[2018-07-26] MEDS ORDERED: VERAPAMIL 2.5 MG/ML 2 ML AMP ONE (09:55)
[2018-07-26] MEDS ORDERED: LIDOCAINE 1% INJ 10MG/ML (20 ML MDV) ONE (09:55)
[2018-07-26] MEDS ORDERED: IV FLUID CONTINUATION 1,000 ML IV ONE (09:59)
[2018-07-26] MEDS ORDERED: fentaNYL (PF) 50 MCG/ML 2 ML AMP ONE (10:19)
[2018-07-26] MEDS ORDERED: hydrALAZINE HCL 20 MG/ML 1 ML VIAL ONE (10:24)
[2018-07-26] MEDS ORDERED: hydrALAZINE HCL 20 MG/ML 1 ML VIAL IV ONE (10:25)
[2018-07-26] MEDS ORDERED: MIDAZOLAM 2 MG/2 ML VIAL IV ONE (10:25)
[2018-07-26] MEDS ORDERED: LIDOCAINE 1% INJ 10MG/ML (20 ML MDV) SQ ONE (10:25)
[2018-07-26] MEDS: fentaNYL (PF) 50 MCG/ML 2 ML AMP IV ONE ×2 (10:25→10:35)
[2018-07-26] MEDS ORDERED: HEPARIN SODIUM 1,000 UN/ML (10ML VL) ONE (10:31)
[2018-07-26] MEDS ORDERED: VERAPAMIL SYRINGE (5 MG/10 ML) INTRAARTER ONE (10:33)
[2018-07-26] MEDS ORDERED: LABETALOL SYRINGE 5 MG/ML IVP STA (10:37)
[2018-07-26] MEDS ORDERED: IOPAMIDOL-370 150ML BTL INJ ONE (10:52)
[2018-07-26] MEDS ORDERED: LABETALOL SYRINGE 5 MG/ML IV ONE (10:58)
[2018-07-26] MEDS ORDERED: RX INFO: IV CONTRAST WAS GIVEN 1 EACH MISC MISCELLANE PRN (11:02)
[2018-07-26] MEDS: CARVEDILOL 6.25 MG TAB PO SCH ×2 (11:46→16:27)
[2018-07-26] MEDS: SODIUM CHLORIDE 0.9% 1,000 ML IV SCH (11:51)
--- NOTE | 2018-07-26 12:34 | P.PN ---
Subjective 07/25/2018 Patient says that she's complaining of dizziness on standing Blood Pressure slightly better controlled today Patient comparison no chest pain or racing heart, no cough or shortness of breath 07/26/2018 Patient is gotten from the cath the right radial approach apparently no still required. Medical management recommended She said that her dizziness is better No chest pain racing heart, no cough or shortness of breath Objective - Vital Signs Vital signs: Vital Signs Temp 98.1 F 07/26/18 08:47 Pulse 58 L 07/26/18 11:50 Resp 18 07/26/18 12:00 BP 157/74 07/26/18 11:50 Pulse Ox 93 L 07/26/18 11:50 Intake & Output 07/25/18 07/26/18 07/26/18 18:59 06:59 18:59 Intake Total 720 883.934 100 Balance 720 883.934 100 Weight 79.5 kg Intake: IV 100 Intake, IV Titration 883.934 Amount Heparin Sod,Pork in 0.45% 243.934 NaCl 25,000 unit In 0.45 % NaCl 1 250ml.bag @ 12 UNITS/KG/HR 9.79 mls/hr IV .Q24H [facility] Rx#: [id number] Sodium Chloride 0.9% 1, 640 000 ml In Empty Bag 1 bag @ 1 ML/KG/HR 78.7 mls/hr IV .[id number] Rx#: [id number] Oral 720 Other: # Voids 2 2 - Exam On exam, alert and oriented x3. HEENT: Conjunctivae normal. eyes normal. NECK: No JVD. No thyroid enlargement. No LNs CARDIOVASCULAR: S1, S2 muffled. No murmur RESPIRATION: Breath sounds diminished in the bases. No rhonchi or crackles. No bronchial breathing. ABDOMEN: Soft, nontender . No guarding. no masses palpable. No ascites, No hepatosplenomegaly.Bowel sounds heard. LEGS: No edema. no swelling NERVOUS SYSTEM: Cranial N 2-12 grossly normal. Moves all 4 limbs. No focal deficits. No sensory deficit. No signs of cerebellar dysfucntion. Skin: no ulcer no rash J - Labs CBC & Chem 7: 07/26/18 06:00 07/26/18 06:00 Labs: Abnormal Lab Results - Last 24 Hours (Table) 07/26/18 07/26/18 Range/Units 06:00 06:00 APTT 63.4 H (22.0-30.0) sec Potassium 3.2 L (3.5-5.1) mmol/L Glucose 109 H (74-99) mg/dL Assessment and Plan Assessment: - Chest pain rule out non-STEMI - A. fib with RVR - Fraction of the left radius minimally displaced - Hypertension - Questionable compliance with medication - Hyperlipidemia - Nicotine dependence Plan - Continue the blood pressure medications. Blood pressure better controlled now - Patient had a heart catheter done. Medical management recommended. We'll wait for cardiology for the recommendations regarding care - Patient was instructed on compliance. Patient and son both understanding there was instructed to make an appointment with primary care doctor and follow with the primary care doctor regularly was discharged - We'll follow the patient Time with Patient: Greater than 30
--- NOTE | 2018-07-26 14:59 | P.CARDCATH ---
Date of Procedure: 07/26/18 Preoperative Diagnosis: Positive troponin, chest pain and hypertension Postoperative Diagnosis: Noncritical ischemic heart disease Procedure(s) Performed: Left heart catheterization without left ventriculography Description of Procedure: HISTORY: This is a 68-year-old female with history of hypertension was admitted to the hospital with nausea, dizziness and also chest pain. Patient's troponins were elevated. EKG did not reveal any acute changes. Because of chest pain and abnormal troponins, patient is advised to have a cardiac catheterization to rule out underlying ischemic heart disease. CONSENT:I have discussed the risks, benefits and alternative therapies for the above-mentioned procedure and for both sedation/analgesia as well as necessary blood product administration, if indicated, as they pertain to this patient. The patient has indicated understanding and acceptance of the risks and procedures discussed. PROCEDURE: Patient was brought to the lab in a fasting state. Patient was given some IV sedation. The right wrist is infiltrated with lidocaine and right radial artery was entered using Seldinger technique. A 6-[place] catheter was left in place and selective coronary arteriography was performed. Patient tolerated the procedure well. TR band was applied for hemostasis. No immediate complications were noted and patient was transferred to [facility] in a stable condition Conscious Sedation: Versed 1mg Fentanyl 50 g Duration 31minutes HEMODYNAMICS: The aortic pressure is about 160/70. There was no gradient across the aortic valve. The end-diastolic pressure is about 15-20 SELECTIVE CORONARY ARTERIOGRAPHY: LEFT MAIN: This is a normal length and patent and free of occlusive disease THE LEFT ANTERIOR DESCENDING CORONARY ARTERY: This is a good caliber vessel and free of any occlusive disease THE LEFT CIRCUMFLEX AND IS CORONARY ARTERY:. This is also a good caliber vessel giving rise good-sized OM branch. The mid and distal circumflex is small in caliber with a diffuse disease with areas of 60-70 % stenosis. It is a however diffusedly diseased vessel not amenable for intervention THE RIGHT CORONARY ARTERY:. This is a good caliber vessel giving rise to PDA and PLV and dominant in nature. Free of any significant occlusive disease LEFT VENTRICULOGRAPHY:. Not performed FINAL IMPRESSION:. 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 Rest of the coronary system is free of any occlusive disease PLAN:. Maximum medical therapy and risk factor modification PROGNOSIS: Fair
[2018-07-26] MEDS: ATORVASTATIN 80 MG TAB PO SCH (20:02)
[2018-07-27] MEDS: SODIUM CHLORIDE 0.9% 1,000 ML IV SCH ×2 (02:46→11:12)
[2018-07-27 06:54] LABS: Basophils % (A) 0 %; Eosinophils # (A) 0.3 k/uL (0-0.7); Eosinophils % (A) 3 %; HCT 44.1 % (34.0-46.0); HGB 14.6 gm/dL (11.4-16.0); Lymphocytes # (A) 0.9 k/uL (1.0-4.8); Lymphocytes % (A) 10 %; MCH 28.8 pg (25.0-35.0); MCV 87.1 fL (80.0-100.0); Mean Platelet Volume 7.1; Monocytes # (A) 0.4 k/uL (0-1.0); Monocytes % (A) 5 %; Neutrophils # (A) 6.9 k/uL (1.3-7.7); Neutrophils % (A) 81 %; Platelet Count 172 k/uL (150-450); RBC 5.07 m/uL (3.80-5.40); RDW 13.5 % (11.5-15.5); WBC 8.5 k/uL (3.8-10.6)
[2018-07-27 07:09] LABS: Anion Gap 3 mmol/L; Blood Urea Nitrogen 14 mg/dL (7-17); Carbon Dioxide 27 mmol/L (22-30); Chloride 108 mmol/L (98-107); Glucose 112 mg/dL (74-99); Potassium 3.2 mmol/L (3.5-5.1); Sodium 138 mmol/L (137-145)
[2018-07-27] MEDS: CARVEDILOL 6.25 MG TAB PO SCH (07:17)
[2018-07-27] MEDS: LOSARTAN 50 MG TAB PO SCH (07:49)
[2018-07-27] MEDS: amLODIPine 10 MG TAB PO SCH (07:49)
[2018-07-27] MEDS: HYDROCHLOROTHIAZIDE 12.5 MG CAP PO SCH (07:49)
[2018-07-27] MEDS: hydrALAZINE HCL 25 MG TAB PO SCH ×2 (07:49→20:47)
--- NOTE | 2018-07-27 14:33 | P.PN ---
Subjective Progress Note Date: 07/27/18 This is a 67-year-old female with known history of hypertension, nondiabetic, no hyperlipidemia, nicotine dependence, who presented to the hospital on this occasion with symptoms of dizziness with associated nausea and vomiting. She did have a fall a few days prior to her admission here, patient also had not taken her blood pressure medication for the past 2 days prior to her admission here. While in the hospital here patient states she had an episode of chest discomfort which radiated up into her neck and jaw area. Her initial EKG on presentation here showed a sinus bradycardia with evidence of left ventricular hypertrophy, T wave inversion noted in the inferior and lateral leads. Around 7:30 last evening patient went into atrial fibrillation with a rapid ventricular response, she was initiated on IV heparin and Cardizem drip. At 11:00 she converted back to normal sinus rhythm and continues to have T-wave inversion noted in the inferior lateral leads. Patient denies any prior history of atrial fibrillation in the past. Her blood pressure on arrival here was 258/98, heart rate in the 70s, 96% on room air. Blood pressure this morning 152/70 with a heart rate in the 60s, 96% on room air. White blood cell count 10.5 on admission, 11 this morning, hemoglobin 16.2 on admission, 14.4 this morning. Platelet count 188. Sodium 141, potassium 3.6, BUN 26 and creatinine 0.5. Initial troponin 0.012, subsequent troponin 0.601. Chest x-ray showed cardiomegaly with no cardiopulmonary process which appears to be acute. A CAT scan of the neck and spine was performed which did not reveal acute fracture or dislocation of the spine, no acute intracranial hemorrhage or mass effect or midline shift noted. A 2 mm right upper lobe pulmonary nodule was noted. Extensive large anterior hypertrophic spurs noted. Left hand x-ray shows diffuse osteopenia with suspected fracture involving the distal radius. Wrist fracture shows fracture minimally displaced distal radius extending towards the articular surface. At the time of my examination this morning, patient is quite comfortable. Denies any dizziness at present. No chest discomfort at present. Currently in normal sinus rhythm. 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 Maximal medical therapy has been advised. Blood pressure at times under better control but overall still remains significantly elevated. This morning 221/90, at lunchtime 187/84. CBC within normal limits, sodium 138, potassium 3.2, BUN 14 and creatinine 0.7. Objective - Vital Signs Vital signs: Vital Signs Temp 98.1 F 07/27/18 12:00 Pulse 68 07/27/18 12:00 Resp 18 07/27/18 12:00 BP 187/84 07/27/18 12:00 Pulse Ox 96 07/27/18 12:00 Intake & Output 07/26/18 07/27/18 07/27/18 18:59 06:59 18:59 Intake Total 340 390 480 Output Total 600 Balance 340 390 -120 Weight 81.5 kg Intake: IV 100 Intake, IV Titration 150 Amount Sodium Chloride 0.9% 1, 150 000 ml @ 75 mls/hr IV . [id number] JAVON Rx#:[id number] Oral 240 240 480 Output: Urine 600 Other: # Voids 1 2 - Exam PHYSICAL EXAMINATION: GENERAL: 67-year-old female in no acute distress at the time of my examination HEENT: Head is atraumatic, normocephalic. Pupils equal, round. Sclera anicteric. Conjunctiva are clear. Mucous membranes of the mouth are moist. Neck is supple. There is no elevated jugular venous pressure. No carotid bruit is heard. HEART EXAMINATION: Heart S1, S2 normal. No murmur or gallop heard. CHEST EXAMINATION: Lungs are clear to auscultation and precussion. No chest wall tenderness is noted on palpation or with deep breathing. ABDOMEN: Soft, nontender. Bowel sounds are heard. No organomegaly noted. EXTREMITIES: 2+ peripheral pulses with no evidence of peripheral edema and no calf tenderness noted. Patient does have an [place] wrap cast applied to the left wrist. Right radial site clean and dry, good distal pulse. NEUROLOGIC patient is awake, alert and oriented 3. . - Labs CBC & Chem 7: 07/27/18 06:24 07/27/18 06:24 Labs: Abnormal Lab Results - Last 24 Hours (Table) 07/27/18 07/27/18 Range/Units 06:24 06:24 Lymphocytes # 0.9 L (1.0-4.8) k/uL Potassium 3.2 L (3.5-5.1) mmol/L Chloride 108 H (98-107) mmol/L Glucose 112 H (74-99) mg/dL Assessment and Plan Plan: Assessment and plan #1 symptoms of dizziness with associated nausea and vomiting #2 atrial fibrillation with rapid ventricular response, paroxysmal, patient currently in normal sinus rhythm #3 hypertensive urgency #4 history of hypertension #5 nicotine dependence #6 episode of chest discomfort with radiation to the jaw, could be secondary to atrial fibrillation with rapid ventricular response, cannot completely rule out underlying coronary artery disease. Initial troponin 0.012, subsequent troponin 0.601. 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 Medical therapy advised Plan Echocardiogram with Doppler study showed an ejection fraction of 55-60%. We will increase the dose of Catapres patch to a TTS 2 patch today. Increase Coreg to 12-1/2 mg by mouth twice a day. Continue to observe for 24 hours. DNP note has been reviewed, I agree with a documented findings and plan of care. Patient was seen and examined.
[2018-07-27] MEDS ORDERED: cloNIDine 0.2 MG/24HR PATCH TRANSDERM SCH (15:00)
--- NOTE | 2018-07-27 15:30 | P.PN ---
Subjective 07/25/2018 Patient says that she's complaining of dizziness on standing Blood Pressure slightly better controlled today Patient comparison no chest pain or racing heart, no cough or shortness of breath 07/26/2018 Patient is gotten from the cath the right radial approach apparently no still required. Medical management recommended She said that her dizziness is better No chest pain racing heart, no cough or shortness of breath 07/27/2018 Patient blood pressure was more than 200 this morning Patient says that her dizziness is better No chest pain or racing heart No cough no shortness of breath Objective - Vital Signs Vital signs: Vital Signs Temp 98.1 F 07/27/18 12:00 Pulse 68 07/27/18 12:00 Resp 18 07/27/18 12:00 BP 187/84 07/27/18 12:00 Pulse Ox 96 07/27/18 12:00 Intake & Output 07/26/18 07/27/18 07/27/18 18:59 06:59 18:59 Intake Total 340 390 480 Output Total 600 Balance 340 390 -120 Weight 81.5 kg Intake: IV 100 Intake, IV Titration 150 Amount Sodium Chloride 0.9% 1, 150 000 ml @ 75 mls/hr IV . [id number] JAVON Rx#:[id number] Oral 240 240 480 Output: Urine 600 Other: # Voids 1 2 - Exam On exam, alert and oriented x3. HEENT: Conjunctivae normal. eyes normal. NECK: No JVD. No thyroid enlargement. No LNs CARDIOVASCULAR: S1, S2 muffled. No murmur RESPIRATION: Breath sounds diminished in the bases. No rhonchi or crackles. No bronchial breathing. ABDOMEN: Soft, nontender . No guarding. no masses palpable. No ascites, No hepatosplenomegaly.Bowel sounds heard. LEGS: No edema. no swelling NERVOUS SYSTEM: Cranial N 2-12 grossly normal. Moves all 4 limbs. No focal deficits. No sensory deficit. No signs of cerebellar dysfucntion. Skin: no ulcer no rash J - Labs CBC & Chem 7: 07/27/18 06:24 07/27/18 06:24 Labs: Abnormal Lab Results - Last 24 Hours (Table) 07/27/18 07/27/18 Range/Units 06:24 06:24 Lymphocytes # 0.9 L (1.0-4.8) k/uL Potassium 3.2 L (3.5-5.1) mmol/L Chloride 108 H (98-107) mmol/L Glucose 112 H (74-99) mg/dL Assessment and Plan Assessment: - Chest pain rule out non-STEMI - A. fib with RVR - Fraction of the left radius minimally displaced - Hypertension - Questionable compliance with medication - Hyperlipidemia - Nicotine dependence Plan - Appreciated cardiology recommendation to adjust medications accordingly. Blood pressure - We'll monitor for another 24 hours to see how she does - Continue rest of the medications - We will increase the patient to get up and walk and see her she does - Again instructed the patient on compliance
[2018-07-27] MEDS: CARVEDILOL 12.5 MG TAB PO SCH (16:23)
[2018-07-27] MEDS: ATORVASTATIN 80 MG TAB PO SCH (20:47)
[2018-07-27] MEDS: ALPRAZolam 0.5 MG TAB PO PRN (20:50)
[2018-07-28] MEDS: SODIUM CHLORIDE 0.9% 1,000 ML IV SCH (04:26)
[2018-07-28 04:28] VITALS: TEMP 98.1
[2018-07-28] MEDS: ALPRAZolam 0.5 MG TAB PO PRN (04:45)
[2018-07-28] MEDS: CARVEDILOL 12.5 MG TAB PO SCH ×2 (06:34→16:43)
[2018-07-28 07:14] LABS: Basophils % (A) 1 %; Eosinophils # (A) 0.3 k/uL (0-0.7); Eosinophils % (A) 4 %; HCT 43.7 % (34.0-46.0); HGB 14.6 gm/dL (11.4-16.0); Lymphocytes # (A) 1.1 k/uL (1.0-4.8); Lymphocytes % (A) 14 %; MCH 28.8 pg (25.0-35.0); MCHC 33.4 g/dL (31.0-37.0); MCV 86.2 fL (80.0-100.0); Mean Platelet Volume 7.5; Monocytes # (A) 0.4 k/uL (0-1.0); Monocytes % (A) 6 %; Neutrophils # (A) 5.8 k/uL (1.3-7.7); Neutrophils % (A) 75 %; Platelet Count 163 k/uL (150-450); RBC 5.07 m/uL (3.80-5.40); RDW 13.5 % (11.5-15.5); WBC 7.7 k/uL (3.8-10.6)
[2018-07-28] MEDS: LOSARTAN 50 MG TAB PO SCH (08:08)
[2018-07-28] MEDS: HYDROCHLOROTHIAZIDE 12.5 MG CAP PO SCH (08:09)
[2018-07-28] MEDS: amLODIPine 10 MG TAB PO SCH (08:09)
[2018-07-28] MEDS: hydrALAZINE HCL 25 MG TAB PO SCH (08:09)
[2018-07-28 08:12] VITALS: RESP 16
--- NOTE | 2018-07-28 12:03 | P.DS ---
Providers Date of admission: 07/23/18 17:48 Expected date of discharge: 07/28/18 Attending physician: Violette Merino Consults: 07/23/18 16:47 Consult Physician Routine Consulting Provider: Tacos Frias Consult Reason/Comments: T wave inversion Do you want consulting provider notified?: Yes Primary care physician: Stated None Hospital Course: Discharge diagnosis - Accelerated hypertension - A. fib which converted to normal sinus rhythm patient is in normal sinus rhythm - Hypertension - Fraction of the left radius minimally displaced - Non-compliance with medication Very pleasant 68-year-old female with a history significant for hypertension, noncompliant with medication comes in for weakness and dizziness. She was also having chest pain and was having nausea vomiting. She came into the ER for further evaluation and management. In the ER she was found to be in A. fib with RVR she was started on heparin Cardizem she subsequently converted to normal sinus rhythm. Cardiology was consulted. Her blood pressure was very high. She was put on multiple medications. She also had heart cath done which showed no significant coronary artery disease and the recommended medical management.. Her blood pressure medications were adjusted. Her blood pressure eventually was in a decent range of 140s to 160s On 07/28/2018 She said that she's feeling fine No chest pain or racing heart, no dizziness She is happy she's going home On exam, alert and oriented x3. HEENT: Conjunctivae normal. eyes normal. NECK: No JVD. No thyroid enlargement. No LNs CARDIOVASCULAR: S1, S2 muffled. No murmur RESPIRATION: Breath sounds diminished in the bases. No rhonchi or crackles. No bronchial breathing. ABDOMEN: Soft, nontender . No guarding. no masses palpable. No ascites, No hepatosplenomegaly.Bowel sounds heard. LEGS: No edema. no swelling NERVOUS SYSTEM: Cranial N 2-12 grossly normal. Moves all 4 limbs. No focal deficits. No sensory deficit. No signs of cerebellar dysfucntion. Skin: no ulcer no rash Joints: No active swelling. No inflammation. Lymphatic system. No LN neck axilla or groin. Plan - Patient to be discharged today - Continue medications at home - Patient is in the process of being set up an appointment for primary care doctor Dr. Zelaya so that she can follow-up on 08/04/2018 at 10:40 AM - Patient is to follow with cardiology - Patient was instructed to be compliant with her medications Patient Condition at Discharge: Fair Plan - Discharge Summary Discharge Rx Participant: No New Discharge Prescriptions: New amLODIPine [Norvasc] 10 mg PO DAILY #30 tab Atorvastatin [Lipitor] 80 mg PO HS #30 tab Carvedilol [Coreg*] 12.5 mg PO BID-W/MEALS #30 tab cloNIDine 0.2 MG/24HR PATCH [Catapres-TTS] 1 patch TRANSDERM Q7D #60 patch hydrALAZINE HCL [Apresoline] 25 mg PO BID #30 tab Hydrochlorothiazide [Hydrodiuril] 12.5 mg PO DAILY #30 cap Losartan [Cozaar] 100 mg PO DAILY #30 tab Nitroglycerin Sl Tabs [Nitrostat] 0.4 mg SUBLINGUAL Q5M PRN #60 tab PRN Reason: Chest Pain Discontinued Olmesartan/Amlodipin/Hcthiazid [Tribenzor 40-5-12.5 mg Tablet] 1 tab PO DAILY Nebivolol HCl [Bystolic] 20 mg PO DAILY Discharge Medication List Atorvastatin [Lipitor] 80 mg PO HS #30 tab 07/28/18 [Rx] Carvedilol [Coreg*] 12.5 mg PO BID-W/MEALS #30 tab 07/28/18 [Rx] Hydrochlorothiazide [Hydrodiuril] 12.5 mg PO DAILY #30 cap 07/28/18 [Rx] Losartan [Cozaar] 100 mg PO DAILY #30 tab 07/28/18 [Rx] Nitroglycerin Sl Tabs [Nitrostat] 0.4 mg SUBLINGUAL Q5M PRN #60 tab 07/28/18 [Rx ] amLODIPine [Norvasc] 10 mg PO DAILY #30 tab 07/28/18 [Rx] cloNIDine 0.2 MG/24HR PATCH [Catapres-TTS] 1 patch TRANSDERM Q7D #60 patch 07/28 [Rx] hydrALAZINE HCL [Apresoline] 25 mg PO BID #30 tab 07/28/18 [Rx] Follow up Appointment(s)/Referral(s): None,Stated [Primary Care Provider] - 1-2 days (Please schedule appointment with a primary care physician) Danika Krishna MD [STAFF PHYSICIAN] - 1 Week (Spoke to temporary receptionist. Office will call with appointment time) Patient Instructions/Handouts: *[facility] - After Heart Catheterization - Digital Ad Trafficker Instructions, Left Heart Catheterization (DC)
--- NOTE | 2018-07-28 14:56 | P.PN ---
Subjective Progress Note Date: 07/28/18 This is a 67-year-old female with known history of hypertension, nondiabetic, no hyperlipidemia, nicotine dependence, who presented to the hospital on this occasion with symptoms of dizziness with associated nausea and vomiting. She did have a fall a few days prior to her admission here, patient also had not taken her blood pressure medication for the past 2 days prior to her admission here. While in the hospital here patient states she had an episode of chest discomfort which radiated up into her neck and jaw area. Her initial EKG on presentation here showed a sinus bradycardia with evidence of left ventricular hypertrophy, T wave inversion noted in the inferior and lateral leads. Around 7:30 last evening patient went into atrial fibrillation with a rapid ventricular response, she was initiated on IV heparin and Cardizem drip. At 11:00 she converted back to normal sinus rhythm and continues to have T-wave inversion noted in the inferior lateral leads. Patient denies any prior history of atrial fibrillation in the past. Her blood pressure on arrival here was 258/98, heart rate in the 70s, 96% on room air. Blood pressure this morning 152/70 with a heart rate in the 60s, 96% on room air. White blood cell count 10.5 on admission, 11 this morning, hemoglobin 16.2 on admission, 14.4 this morning. Platelet count 188. Sodium 141, potassium 3.6, BUN 26 and creatinine 0.5. Initial troponin 0.012, subsequent troponin 0.601. Chest x-ray showed cardiomegaly with no cardiopulmonary process which appears to be acute. A CAT scan of the neck and spine was performed which did not reveal acute fracture or dislocation of the spine, no acute intracranial hemorrhage or mass effect or midline shift noted. A 2 mm right upper lobe pulmonary nodule was noted. Extensive large anterior hypertrophic spurs noted. Left hand x-ray shows diffuse osteopenia with suspected fracture involving the distal radius. Wrist fracture shows fracture minimally displaced distal radius extending towards the articular surface. At the time of my examination this morning, patient is quite comfortable. Denies any dizziness at present. No chest discomfort at present. Currently in normal sinus rhythm. 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 Maximal medical therapy has been advised. Blood pressure at times under better control but overall still remains significantly elevated. This morning 221/90, at lunchtime 187/84. CBC within normal limits, sodium 138, potassium 3.2, BUN 14 and creatinine 0.7. 07/28/2018 Patient was seen and examined this morning, blood pressure today under much better control. Patient feels well and is eager to be discharged home. She did state that she felt a little woozy when she was up ambulating earlier today. She has been encouraged to ambulate more in the hallway today. We will plan for possible discharge home in the afternoon if she is stable. Objective - Vital Signs Vital signs: Vital Signs Temp 98.1 F 07/28/18 04:00 Pulse 63 07/28/18 08:00 Resp 16 07/28/18 11:34 BP 154/68 07/28/18 08:00 Pulse Ox 99 07/28/18 08:00 Intake & Output 07/27/18 07/28/18 07/28/18 18:59 06:59 18:59 Intake Total 960 960 Output Total 1400 1200 Balance -440 -240 Weight 78.9 kg Intake: Oral 960 960 Output: Urine 1400 1200 Other: # Voids 1 - Exam PHYSICAL EXAMINATION: GENERAL: 67-year-old female in no acute distress at the time of my examination HEENT: Head is atraumatic, normocephalic. Pupils equal, round. Sclera anicteric. Conjunctiva are clear. Mucous membranes of the mouth are moist. Neck is supple. There is no elevated jugular venous pressure. No carotid bruit is heard. HEART EXAMINATION: Heart S1, S2 normal. No murmur or gallop heard. CHEST EXAMINATION: Lungs are clear to auscultation and precussion. No chest wall tenderness is noted on palpation or with deep breathing. ABDOMEN: Soft, nontender. Bowel sounds are heard. No organomegaly noted. EXTREMITIES: 2+ peripheral pulses with no evidence of peripheral edema and no calf tenderness noted. Patient does have an [place] wrap cast applied to the left wrist. Right radial site clean and dry, good distal pulse. NEUROLOGIC patient is awake, alert and oriented 3. . - Labs CBC & Chem 7: 07/28/18 06:28 07/27/18 06:24 Assessment and Plan Plan: Assessment and plan #1 symptoms of dizziness with associated nausea and vomiting #2 atrial fibrillation with rapid ventricular response, paroxysmal, patient currently in normal sinus rhythm #3 hypertensive urgency #4 history of hypertension #5 nicotine dependence #6 episode of chest discomfort with radiation to the jaw, could be secondary to atrial fibrillation with rapid ventricular response, cannot completely rule out underlying coronary artery disease. Initial troponin 0.012, subsequent troponin 0.601. 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 Medical therapy advised Plan Echocardiogram with Doppler study showed an ejection fraction of 55-60%. Patient has been encouraged to be up ambulating in the hallway, she is asymptomatic she may be discharged home later today. We will make her a follow- up appointment with Dr. Krishna in the office post discharge. DNP note has been reviewed, I agree with a documented findings and plan of care. Patient was seen and examined.
[2018-07-28 16:44] VITALS: BP 182/87; PULSE 60
--- NOTE | 2018-07-29 13:25 | CDI ---
Documentation Clarification Form Date: 07/29/18 From: Minda Rowell Phone: If you have a question regarding this query, please contact Brisa Grady at [phone] between 8am and 5pm. Admit Date: 07/23/2018 5:48:00 PM Patient Name: Ignacio Quesada Visit Number: [id number] Discharge Date: 07/28/2018 6:29:00 PM ATTENTION: The Clinical Documentation Specialists (CDI) and [facility] Coding Staff appreciate your assistance in clarifying documentation. Please respond to the clarification below the line at the bottom and electronically sign. The CDI & [facility] Coding staff will review the response and follow-up if needed. Please note: Queries are made part of the Legal Health Record. If you have any questions, please contact the author of this message via ITS. Dr. Guillaume Murrieta Chest pain rule out non-STEMI is documented in the H&P and in your progress notes. Patient History/Risk Factors: Patient has a hypertensive urgency on admission and had atrial fib, bradycardia, left ventricular hypertrophy and mild mitral and tricuspid valve regurgitation. Clinical Indicators: Episode of chest discomfort with radiation to the jaw. Troponin: < 0.012 on admit, 0.601, 0.380 and 0.320 EKG Results: On presentation, showed a sinus bradycardia with evidence of left ventricular hypertrophy, T wave inversion noted in the inferior and lateral leads. Left Heart Cath: Intermediate disease involving the mid and distal circumflex with a diffuse involvement. Rest of the coronary system is free of any occlusive disease. Treatment: Cardizem for Atrial fib and blood pressure medications were adjusted. Consult: Episode of chest discomfort with radiation to the jaw, could be secondary to atrial fib with rapid ventricular response, cannot completely rule out underlying cornary artery disease. Hypertensive urgency In order to capture the severity of condition and necessary documentation specificity, please clarify if NSTEMI was: Ruled Out Ruled In Unable to determine Other Condition, please specify MTDD
--- NOTE | 2018-08-11 15:33 | CDI ---
Documentation Clarification Form Date: 07/29/2018 1:25:00 PM From: Minda Rowell Phone: Admit Date: 07/23/2018 5:48:00 PM Patient Name: Ignacio Quesada Visit Number: [id number] Discharge Date: 07/28/2018 6:29:00 PM ATTENTION: The Clinical Documentation Specialists (CDI) and [facility] Coding Staff appreciate your assistance in clarifying documentation. Please respond to the clarification below the line at the bottom and electronically sign. The CDI & [facility] Coding staff will review the response and follow-up if needed. Please note: Queries are made part of the Legal Health Record. If you have any questions, please contact the author of this message via ITS. Dr. Guillaume Murrieta Chest pain rule out non-STEMI is documented in the H&P and in your progress notes. But no further mention of status of NON-STEMI. Patient History/Risk Factors: Patient has a hypertensive urgency on admission and had atrial fib, bradycardia, left ventricular hypertrophy and mild mitral and tricuspid valve regurgitation. Clinical Indicators: Episode of chest discomfort with radiation to the jaw. Troponin: < 0.012 on admit, 0.601, 0.380 and 0.320 EKG Results: On presentation, showed a sinus bradycardia with evidence of left ventricular hypertrophy, T wave inversion noted in the inferior and lateral leads. Left Heart Cath: Intermediate disease involving the mid and distal circumflex with a diffuse involvement. Rest of the coronary system is free of any occlusive disease. Treatment: Cardizem for Atrial fib and blood pressure medications were adjusted. Consult: Episode of chest discomfort with radiation to the jaw, could be secondary to atrial fib with rapid ventricular response, cannot completely rule out underlying coronary artery disease. Hypertensive urgency In order to capture the severity of condition and necessary documentation specificity, please clarify if NSTEMI was: Ruled Out Ruled In Unable to determine Other Condition, please specify Pt admitted for nstemi. Cardiac cath negative. MTDD
--- NOTE | 2018-09-13 15:02 | CDI ---
Documentation Clarification Form Date: 09/13/18 From: Minda Rowell Phone: If you have a question regarding this query, please contact Brisa Grady at [phone] to 5pm. Admit Date: 07/23/2018 5:48:00 PM Patient Name: Ignacio Qeusada Visit Number: [id number] Discharge Date: 07/28/2018 6:29:00 PM ATTENTION: The Clinical Documentation Specialists (CDI) and [facility] Coding Staff appreciate your assistance in clarifying documentation. Please respond to the clarification below the line at the bottom and electronically sign. The CDI & [facility] Coding staff will review the response and follow-up if needed. Please note: Queries are made part of the Legal Health Record. If you have any questions, please contact the author of this message via ITS. Dr. Guillaume Murrieta Thank you for your response to the previous query. But please clarify if admitting dx of NSTEMI was confirmed/ruled in or ruled out since a negative cardiac cath does not necessarily indicate a ruled out NSTEMI. Chest pain rule out non-STEMI is documented in the H&P and in your progress notes. Patient History/Risk Factors: Patient has a hypertensive urgency on admission and had atrial fib, bradycardia, left ventricular hypertrophy and mild mitral and tricuspid valve regurgitation. Clinical Indicators: Episode of chest discomfort with radiation to the jaw. Troponin: < 0.012 on admit, 0.601, 0.380 and 0.320 EKG Results: On presentation, showed a sinus bradycardia with evidence of left ventricular hypertrophy, T wave inversion noted in the inferior and lateral leads. Left Heart Cath: Intermediate disease involving the mid and distal circumflex with a diffuse involvement. Rest of the coronary system is free of any occlusive disease. Treatment: Cardizem for Atrial fib and blood pressure medications were adjusted. Consult: Episode of chest discomfort with radiation to the jaw, could be secondary to atrial fib with rapid ventricular response, cannot completely rule out underlying cornary artery disease. Hypertensive urgency In order to capture the severity of condition and necessary documentation specificity, please clarify if NSTEMI was: Ruled Out Ruled In Unable to determine Other Condition, please specify TAYLOR WAS UNABLE TO DETERMINE. JUSTAD
== END 2018-07-28 18:29 | disposition home or self-care (01) | DRG 281 ==
LOC: EC 14:56 → 3SCARD 17:48
PROVIDERS: ADMIT Internal Medicine; ATTEND Internal Medicine
PROC: B2111ZZ Fluoroscopy of Multiple Coronary Arteries using Low Osmolar Contrast (ICD-10-PCS; 2018-07-26)
PROC: 4A023N7 Measurement of Cardiac Sampling and Pressure, Left Heart, Percutaneous Approach (ICD-10-PCS; principal; 2018-07-26 09:57)
DX: I21.4 Non-ST elevation (NSTEMI) myocardial infarction (principal); S52.502A Unspecified fracture of the lower end of left radius, initial encounter for closed fracture; I16.0 Hypertensive urgency; I08.1 Rheumatic disorders of both mitral and tricuspid valves; I11.9 Hypertensive heart disease without heart failure; I48.0 Paroxysmal atrial fibrillation; E78.5 Hyperlipidemia, unspecified; F17.200 Nicotine dependence, unspecified, uncomplicated; M85.80 Other specified disorders of bone density and structure, unspecified site; R91.1 Solitary pulmonary nodule; R00.1 Bradycardia, unspecified; I25.10 Atherosclerotic heart disease of native coronary artery without angina pectoris; Z79.899 Other long term (current) drug therapy; Z91.14 Patient's other noncompliance with medication regimen; Z88.6 Allergy status to analgesic agent; Z82.3 Family history of stroke; W19.XXXA Unspecified fall, initial encounter
CPT/HCPCS: 36415; 70450; 71046; 72125; 80048; 80053; 80061; 83690; 84484; 85025; 85730; 93005; 93306; 93458; 96374; 96375; 96376; 99285

== ENCOUNTER → 2019-06-13 | Outpatient (CLI) | payer MEDICARE ==
[2019-06-13 13:03] LABS: HGB 14.6 gm/dL (11.4-16.0); MCH 29.1 pg (25.0-35.0); MCHC 33.3 g/dL (31.0-37.0); MCV 87.5 fL (80.0-100.0); Mean Platelet Volume 8.7; Platelet Count 176 k/uL (150-450); RBC 5.03 m/uL (3.80-5.40); RDW 13.1 % (11.5-15.5); WBC 8.5 k/uL (3.8-10.6)
[2019-06-13 15:13] LABS: Erythrocyte Sedimentation Rate 16 mm/hr (0-20)
[2019-06-13 21:46] LABS: Albumin 4.4 g/dL (3.80-4.90); Albumin/Globulin Ratio 2.44 (1.60-3.17); Bilirubin, Conjugated 0.3 mg/dL (0.20-0.40); Bilirubin,Unconjugated 0.5 mg/dL; Chol/HDL Ratio 2.26; Globulin 1.8 g/dL (1.6-3.3); LDL Cholesterol,Calculated 59.4 mg/dL (0.0-131.0); Total Bilirubin 0.8 mg/dL (0.3-1.2); Total Protein 6.2 g/dL (6.2-8.2); VLDL Calculation 13.6 mg/dL (5.00-40.00)
[2019-06-13 21:53] LABS: T4, Free (Free Thyroxine) 1.2 ng/dL (0.80-1.80)
[2019-06-13 23:25] LABS: Hemoglobin A1C 5.5 % (4.0-6.0)
== END | disposition home or self-care (01) ==
LOC: LABWHC1 11:43
PROVIDERS: ATTEND Internal Medicine
DX: I25.10 Atherosclerotic heart disease of native coronary artery without angina pectoris (principal); I10 Essential (primary) hypertension; E78.5 Hyperlipidemia, unspecified; R73.09 Other abnormal glucose; N95.1 Menopausal and female climacteric states
CPT/HCPCS: 36415; 80061; 80076; 83036; 84260; 84439; 84443; 85027; 85652; 86431

== ENCOUNTER 2020-12-12 00:21 | Inpatient (IN) | payer MEDICARE ==
[2020-12-12 00:24] LABS: Glucose,Whole Blood 304 mg/dL (75-99)
[2020-12-12] MEDS ORDERED: PROPOFOL 10 MG/ML 20 ML VIAL IV ONE (00:34)
[2020-12-12] MEDS ORDERED: HYDROmorphone 1 MG/ML 1 ML SYRINGE IVP STA (00:35)
[2020-12-12] MEDS ORDERED: METOPROLOL TARTRATE 5 MG/5 ML VIAL IVP STA (00:35)
[2020-12-12] MEDS ORDERED: MIDAZOLAM 1 MG/ML 5 ML VIAL IV STA (00:35)
[2020-12-12] MEDS ORDERED: LABETALOL 5 MG/ML VIAL MDV IVP STA (00:35)
[2020-12-12] MEDS ORDERED: SODIUM CHLORIDE 0.9% 1,000 ML IV STA ×2 (00:38→01:17)
--- NOTE | 2020-12-12 00:38 | ED ---
Altered Mental Status HPI - General Chief Complaint: Altered Mental Status Stated Complaint: unresponsive Time Seen by Provider: 12/12/20 00:33 Source: EMS, RN notes reviewed, old records reviewed Mode of arrival: EMS Limitations: altered mental status, physical limitation - History of Present Illness Initial Comments: This is a 70-year-old female who presents with unresponsiveness. Patient is unable to provide history secondary to clinical state, unresponsive with agonal breathing. History is provided by EMS states patient wanted to follow son who is coming to the ER for evaluation regards to seizure, while transporting son patient became unresponsive had no complaints prior to unresponsive event patient was loaded and EMS and is brought to emergency department. MD Complaint: altered mental status, decreased responsiveness -: minutes(s) Severity: severe Consistency of Symptoms: unknown Context: unknown Associated Symptoms: other (Unresponsive) Treatments Prior to Arrival: oxygen - Related Data Previous Rx's Medication Instructions Recorded Atorvastatin [Lipitor] 80 mg PO HS #30 tab 07/28/18 Losartan [Cozaar] 100 mg PO DAILY #30 tab 07/28/18 Nitroglycerin Sl Tabs [Nitrostat] 0.4 mg SUBLINGUAL Q5M PRN #60 tab 07/28/18 amLODIPine [Norvasc] 10 mg PO DAILY #30 tab 07/28/18 carvediloL [Coreg*] 12.5 mg PO BID-W/MEALS #30 tab 07/28/18 cloNIDine 0.2 MG/24HR PATCH 1 patch TRANSDERM Q7D #60 patch 07/28/18 [Catapres-TTS] hydrALAZINE HCL [Apresoline] 25 mg PO BID #30 tab 07/28/18 hydroCHLOROthiazide [Hydrodiuril] 12.5 mg PO DAILY #30 cap 07/28/18 Allergies Allergy/AdvReac Type Severity Reaction Status Date / Time aspirin Allergy Rash/Hives Verified 07/23/18 15:18 Review of Systems ROS Statement: Those systems with pertinent positive or pertinent negative responses have been documented in the HPI. ROS Other: All systems not noted in ROS Statement are negative. Past Medical History Past Medical History: Hypertension History of Any Multi-Drug Resistant Organisms: None Reported Past Surgical History: Section Past Anesthesia/Blood Transfusion Reactions: No Reported Reaction Past Psychological History: No Psychological Hx Reported Past Alcohol Use History: None Reported Past Drug Use History: None Reported - Past Family History Father Family Medical History: CVA/TIA Mother Family Medical History: No Reported History General Exam Limitations: altered mental status, physical limitation General appearance: obtunded, in distress Head exam: Present: atraumatic, normocephalic, normal inspection Eye exam: Present: normal appearance, other (Pupils sluggish). Absent: scleral icterus, conjunctival injection, periorbital swelling ENT exam: Present: normal exam, mucous membranes moist Neck exam: Present: normal inspection. Absent: tenderness, meningismus, lymphadenopathy Respiratory exam: Present: normal lung sounds bilaterally. Absent: respiratory distress, wheezes, rales, rhonchi, stridor Cardiovascular Exam: Present: normal rhythm, tachycardia, normal heart sounds. Absent: systolic murmur, diastolic murmur, rubs, gallop, clicks GI/Abdominal exam: Present: soft, normal bowel sounds. Absent: distended, tenderness, guarding, rebound, rigid Extremities exam: Present: normal inspection, full ROM, normal capillary refill. Absent: tenderness, pedal edema, joint swelling, calf tenderness Back exam: Present: normal inspection Neurological exam: Present: altered Psychiatric exam: Present: normal affect, normal mood Skin exam: Present: warm, diaphoretic, pallor, mottled. Absent: normal color (Patient does have some mottling of her abdomen), rash Course Vital Signs 12/12/20 12/12/20 12/12/20 00:22 00:38 00:39 Pulse Rate 124 H 121 H Respiratory 30 H 16 Rate Blood Pressure 181/111 181/111 O2 Sat by Pulse 74 L Oximetry 12/12/20 12/12/20 12/12/20 00:43 00:49 00:55 Pulse Rate 80 72 Respiratory 16 16 Rate Blood Pressure 209/112 214/100 O2 Sat by Pulse 96 Oximetry 12/12/20 12/12/20 12/12/20 01:04 01:07 01:11 Pulse Rate 52 L 50 L 56 L Respiratory 16 16 16 Rate Blood Pressure 192/89 74/59 100/54 O2 Sat by Pulse 97 96 96 Oximetry 12/12/20 12/12/20 12/12/20 01:25 01:34 01:36 Pulse Rate 50 L 51 L 58 L Respiratory 16 16 16 Rate Blood Pressure 110/59 109/59 113/60 O2 Sat by Pulse 96 98 98 Oximetry 12/12/20 12/12/20 01:40 01:45 Pulse Rate 57 L 55 L Respiratory 16 16 Rate Blood Pressure 116/62 107/69 O2 Sat by Pulse 96 97 Oximetry - Reevaluation(s) Reevaluation #1: 12/12/20 00:48 Medical record is reviewed Reevaluation #2: 12/12/20 00:48 Patient has borderline undetectable blood pressure initial evaluation Second blood pressure also came back elevated 180/110 Patient is intubated secondary to unresponsiveness Reevaluation #3: 12/12/20 01:20 Due to unresponsiveness and hypertension patient does have a CT of her brain CT angios of her thoracic aorta which are negative for acute disease This patient's history and EKG changes decision is made to call STEMI and Education And Training Manager was paged for patient jan evaluated regarding acute CA Reevaluation #4: 12/12/20 01:42 Patient's blood pressure is now labile, has had significant drop from treatment here in the emergency department. Patient is placed on low-dose levophed - Consultations Consultation #1: Spoke with cardiology who agreed to take patient to the Education And Training Manager Procedures - Intubation Sedative: Versed Laryngoscope: Raymundo Size: 4 ET Tube Size: 7.5 ET Tube Uncuffed: No Tube Secured Location: teeth Tube Placement Confirmation: visualized tube passing through cords, equal breath sounds bilaterally, no breath sounds over epigastrium, confirmation by capnometry Patient Tolerated Procedure: well Intubation Complications: none Medical Decision Making - Medical Decision Making 70 female of significant altered mental status respiratory failure and hypertensive encephalopathy did display severely labile blood pressure blood pressure presented to the ER with unresponsive was intubated secondary to unresp onsive condition, patient was sent for CT brain which was normal CT angios for dissection which was negative, patient was then sent for ST elevated CA based on history as well as early EKG and altered mental status - Lab Data Result diagrams: 12/12/20 00:41 12/12/20 00:41 Lab Results 12/12/20 12/12/20 12/12/20 Range/Units 00:23 00:41 00:41 WBC 18.5 H (3.8-10.6) k/uL RBC 5.91 H (3.80-5.40) m/uL Hgb 17.8 H (11.4-16.0) gm/dL Hct 55.6 H (34.0-46.0) % MCV 94.1 (80.0-100.0) fL MCH 30.1 (25.0-35.0) pg MCHC 32.0 (31.0-37.0) g/dL RDW 13.0 (11.5-15.5) % Plt Count 223 (150-450) k/uL MPV 9.6 PT 10.2 (9.0-12.0) sec INR 0.9 (<1.2) APTT 23.7 (22.0-30.0) sec Sodium (137-145) mmol/L Potassium (3.5-5.1) mmol/L Chloride (98-107) mmol/L Carbon Dioxide (22-30) mmol/L Anion Gap mmol/L BUN (7-17) mg/dL Creatinine (0.52-1.04) mg/dL Est GFR (CKD-EPI)AfAm (>60 ml/min/1.73 sqM) Est GFR (CKD-EPI)NonAf (>60 ml/min/1.73 sqM) Glucose (74-99) mg/dL POC Glucose (mg/dL) 304 H (75-99) mg/dL POC Glu Traffic Officer ID Jones, Amy Plasma Lactic Acid Lonnie (0.7-2.0) mmol/L Calcium (8.4-10.2) mg/dL Phosphorus (2.5-4.5) mg/dL Magnesium (1.6-2.3) mg/dL Total Bilirubin (0.2-1.3) mg/dL AST (14-36) U/L ALT (4-34) U/L Alkaline Phosphatase (38-126) U/L Creatine Kinase (30-135) U/L Troponin I (0.000-0.034) ng/mL NT-Pro-B Natriuret Pep pg/mL Total Protein (6.3-8.2) g/dL Albumin (3.5-5.0) g/dL TSH (0.465-4.680) mIU/L 12/12/20 12/12/20 12/12/20 Range/Units 00:41 00:41 00:41 WBC (3.8-10.6) k/uL RBC (3.80-5.40) m/uL Hgb (11.4-16.0) gm/dL Hct (34.0-46.0) % MCV (80.0-100.0) fL MCH (25.0-35.0) pg MCHC (31.0-37.0) g/dL RDW (11.5-15.5) % Plt Count (150-450) k/uL MPV PT (9.0-12.0) sec INR (<1.2) APTT (22.0-30.0) sec Sodium 140 (137-145) mmol/L Potassium 5.1 (3.5-5.1) mmol/L Chloride 105 (98-107) mmol/L Carbon Dioxide 22 (22-30) mmol/L Anion Gap 13 mmol/L BUN 25 H (7-17) mg/dL Creatinine 1.06 H (0.52-1.04) mg/dL Est GFR (CKD-EPI)AfAm 61 (>60 ml/min/1.73 sqM) Est GFR (CKD-EPI)NonAf 53 (>60 ml/min/1.73 sqM) Glucose 312 H (74-99) mg/dL POC Glucose (mg/dL) (75-99) mg/dL POC Glu Traffic Officer ID Plasma Lactic Acid Lonnie 4.4 H* (0.7-2.0) mmol/L Calcium 9.2 (8.4-10.2) mg/dL Phosphorus 9.1 H* (2.5-4.5) mg/dL Magnesium 2.2 (1.6-2.3) mg/dL Total Bilirubin 0.7 (0.2-1.3) mg/dL AST 59 H (14-36) U/L ALT 25 (4-34) U/L Alkaline Phosphatase 109 (38-126) U/L Creatine Kinase 81 (30-135) U/L Troponin I 0.048 H* (0.000-0.034) ng/mL NT-Pro-B Natriuret Pep pg/mL Total Protein 7.4 (6.3-8.2) g/dL Albumin 4.5 (3.5-5.0) g/dL TSH 6.340 H (0.465-4.680) mIU/L 12/12/20 Range/Units 00:41 WBC (3.8-10.6) k/uL RBC (3.80-5.40) m/uL Hgb (11.4-16.0) gm/dL Hct (34.0-46.0) % MCV (80.0-100.0) fL MCH (25.0-35.0) pg MCHC (31.0-37.0) g/dL RDW (11.5-15.5) % Plt Count (150-450) k/uL MPV PT (9.0-12.0) sec INR (<1.2) APTT (22.0-30.0) sec Sodium (137-145) mmol/L Potassium (3.5-5.1) mmol/L Chloride (98-107) mmol/L Carbon Dioxide (22-30) mmol/L Anion Gap mmol/L BUN (7-17) mg/dL Creatinine (0.52-1.04) mg/dL Est GFR (CKD-EPI)AfAm (>60 ml/min/1.73 sqM) Est GFR (CKD-EPI)NonAf (>60 ml/min/1.73 sqM) Glucose (74-99) mg/dL POC Glucose (mg/dL) (75-99) mg/dL POC Glu Traffic Officer ID Plasma Lactic Acid Lonnie (0.7-2.0) mmol/L Calcium (8.4-10.2) mg/dL Phosphorus (2.5-4.5) mg/dL Magnesium (1.6-2.3) mg/dL Total Bilirubin (0.2-1.3) mg/dL AST (14-36) U/L ALT (4-34) U/L Alkaline Phosphatase (38-126) U/L Creatine Kinase (30-135) U/L Troponin I (0.000-0.034) ng/mL NT-Pro-B Natriuret Pep 5450 pg/mL Total Protein (6.3-8.2) g/dL Albumin (3.5-5.0) g/dL TSH (0.465-4.680) mIU/L - EKG Data -: EKG Interpreted by Me (EKG is sinus tachycardia 125 NC 174 QRS [address] depressions LatInf) - Radiology Data Radiology results: report reviewed (CT brain is negative for acute disease old encephalomalacia. Chest x-ray shows positive ET tube placement, CT chest is negative for dissection does show pulmonary edema, CT head and pelvis negative for acute disease), image reviewed Critical Care Time Critical Care Time: Yes Total Critical Care Time: 65 Disposition Clinical Impression: Altered mental status, Hypertensive encephalopathy, STEMI (ST elevation myocard ial infarction), Acute respiratory failure, Pulmonary edema, Elevated blood pressure reading, Hypertensive emergency Disposition: ADMITTED IP TO THIS HOSP Condition: Critical Is patient prescribed a controlled substance at d/c from ED?: No
[2020-12-12] MEDS ORDERED: CLEVIDIPINE BUTYRATE 25 MG in EMPTY BAG 1 BAG IV SCH (00:45)
[2020-12-12 00:55] LABS: Basophils # (A) 0.2 k/uL (0-0.2); Basophils % (A) 1 %; Eosinophils # (A) 0.4 k/uL (0-0.7); Eosinophils % (A) 2 %; HGB 17.8 gm/dL (11.4-16.0); Lymphocytes # (A) 7.4 k/uL (1.0-4.8); Lymphocytes % (A) 40 %; MCH 30.1 pg (25.0-35.0); MCV 94.1 fL (80.0-100.0); Mean Platelet Volume 9.6; Monocytes # (A) 0.5 k/uL (0-1.0); Monocytes % (A) 3 %; Neutrophils # (A) 9.7 k/uL (1.3-7.7); Neutrophils % (A) 52 %; Platelet Count 223 k/uL (150-450); RBC 5.91 m/uL (3.80-5.40); WBC 18.5 k/uL (3.8-10.6)
--- NOTE | 2020-12-12 00:57 | XR ---
EXAMINATION TYPE: XR chest 1V portable DATE OF EXAM: 12/12/2020 COMPARISON: 07/23/2018 HISTORY: Altered mental status TECHNIQUE: Single view FINDINGS: There is moderate pulmonary airspace edema. Heart size is normal. The endotracheal tube is 4 cm from the alcira. Costophrenic angles are clear. Trachea is midline. There are chest leads. IMPRESSION: Moderately severe pulmonary airspace edema which is new compared to old exam.
--- NOTE | 2020-12-12 01:06 | CT ---
EXAMINATION TYPE: CT brain wo con DATE OF EXAM: 12/12/2020 COMPARISON: 07/23/2018 HISTORY: ams CT DLP: 1139.4 mGycm Automated exposure control for dose reduction was used. Images obtained of the brain without contrast. There is hypodensity that measures 3 x 2 cm in the medial left frontal lobe consistent with old infar ct. There is no mass effect nor midline shift. There is cerebral atrophy. There is no evidence of int racranial hemorrhage. There is hypodensity around the frontal horns of the lateral ventricles. The sk ull base is intact. There is normal aeration of the mastoid sinuses. 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 No acute intracranial abnormality. No change compared to old exam.
[2020-12-12 01:12] LABS: Albumin 4.5 g/dL (3.5-5.0); Calcium 9.2 mg/dL (8.4-10.2); Magnesium 2.2 mg/dL (1.6-2.3); Total Bilirubin 0.7 mg/dL (0.2-1.3); Total Protein 7.4 g/dL (6.3-8.2)
[2020-12-12] MEDS ORDERED: HEPARIN SODIUM 1,000 UN/ML (10ML VL) IV ONE (01:14)
[2020-12-12] MEDS ORDERED: MORPHINE SULFATE 4 MG/ML SYRINGE IV PRN (01:14)
[2020-12-12] MEDS ORDERED: NITROGLYCERIN SL TABS 0.4 MG TAB SUBLINGUAL PRN (01:14)
[2020-12-12] MEDS ORDERED: NALOXONE 0.4 MG/ML 1 ML VIAL IV PRN (01:14)
[2020-12-12] MEDS ORDERED: HEPARIN SOD,PORK IN 0.45% NACL 25,000 UNIT in 0.45% NACL 1 250ML.BAG IV SCH (01:15)
[2020-12-12] MEDS ORDERED: SODIUM CHLORIDE 0.9% 1,000 ML IV SCH ×3 (01:15→02:30)
--- NOTE | 2020-12-12 01:16 | CT ---
EXAMINATION TYPE: CT abdomen pelvis w con DATE OF EXAM: 12/12/2020 COMPARISON: None HISTORY: ams, unresponsive CT DLP: 1365.2 mGycm Automated exposure control for dose reduction was used. CONTRAST: Performed with IV Contrast, patient injected with 100 mL of Isovue 370. Images obtained from the diaphragm to the floor the pelvis with IV contrast. There is pulmonary airspace edema in the lower lung hickey. There is small right pleural effusion. Liver spleen stomach pancreas gallbladder appear intact. Bile ducts are not dilated. There is no adrenal mass. Kidneys have normal size. There is multiple bilateral renal cortical cysts that measure up to 3 cm. There is decreased cortical enhancement lower pole left kidney. This could r elate to ischemia. Abdominal aorta is atheromatous. There is no retroperitoneal adenopathy. Bladder d istends smoothly. There is no inguinal hernia. There is no free fluid in the pelvis. Uterus is anteve rted. There is no evidence of a pelvic mass. There is no mesenteric edema. There is no ascites or free air. There is no sign of a bowel obstructio n. Appendix is medial and appears normal. Lumbar vertebra have normal alignment. Disc spaces are fairly normal. There is no compression fractur e. The bony pelvis appears intact. There is no hip dysplasia. IMPRESSION: Atherosclerotic vascular disease. Multiple renal cortical cysts. Decreased enhancement lower pole cor za left kidney could relate to localized ischemia. Normal appendix. Pulmonary edema.
--- NOTE | 2020-12-12 01:21 | CT ---
EXAMINATION TYPE: CT angio chest DATE OF EXAM: 12/12/2020 COMPARISON: None HISTORY: unresponsive CT DLP: 1365.2 mGycm Automated exposure control for dose reduction was used. CONTRAST: Performed with IV Contrast, patient injected with 100 mL of Isovue 370. Our 3-D post processed images. There is moderately severe pulmonary airspace edema. Edema is more centrally concentrated. There is s mall right pleural effusion. Heart appears slightly enlarged. Thoracic aorta is intact. There is no a neurysm or dissection. The ascending aorta measures 3.3 cm. There is no evidence of filling defect in the pulmonary arteries. There is no mediastinal adenopathy. There is endotracheal tube. I see no hilar mass. Upper abdominal soft tissues are intact. The thoracic spine is intact. There is no compression fracture. Sternum is intact. The ribs appear in tact. IMPRESSION: No evidence of pulmonary embolism. Moderately severe pulmonary airspace edema.
[2020-12-12] MEDS: NOREPINEPHRINE 4 MG in SODIUM CHLORIDE 0.9% 250 ML IV SCH ×2 (01:30→17:50)
[2020-12-12 01:32] LABS: INR 0.9 (<1.2); Partial Thromboplastin Time 23.7 sec (22.0-30.0); Prothrombin Time 10.2 sec (9.0-12.0)
[2020-12-12 01:35] LABS: HCT 55.6 % (34.0-46.0)
[2020-12-12] MEDS ORDERED: HEPARIN SODIUM,PORCINE 30 ML 30 ML ONE (01:41)
[2020-12-12] MEDS ORDERED: LIDOCAINE 1% INJ 10MG/ML (20 ML MDV) ONE (01:41)
[2020-12-12 01:45] LABS: Appearance,Urine Clear (Clear); Bilirubin,Urine Negative (Negative); Blood,Urine Negative (Negative); Color,Urine Colorless; Glucose,Urine (UA) Trace (Negative); Ketones,Urine Negative (Negative); Leukocyte Esterase,Urine Negative (Negative); Mucus,Urine Rare /hpf; Nitrite,Urine Negative (Negative); Protein,Urine 2+ (Negative); RBC,Urine 2 /hpf (0-5); Specific Gravity,Urine 1.007 (1.001-1.035); Urobilinogen,Urine <2.0 mg/dL (<2.0); WBC,Urine 2 /hpf (0-5)
[2020-12-12 01:58] LABS: Phosphorus 9.1 mg/dL (2.5-4.5); Potassium 5.1 mmol/L (3.5-5.1)
[2020-12-12] MEDS ORDERED: LIDOCAINE 1% INJ 10MG/ML (20 ML MDV) SQ ONE (02:03)
[2020-12-12] MEDS ORDERED: IV FLUID CONTINUATION 1,000 ML IV ONE (02:09)
[2020-12-12] MEDS ORDERED: IOPAMIDOL-370 125ML BTL INJ ONE (02:20)
[2020-12-12] MEDS ORDERED: RX INFO: IV CONTRAST WAS GIVEN 1 EACH MISC MISCELLANE PRN (02:23)
[2020-12-12 02:57] LABS: Glucose,Whole Blood 165 mg/dL (75-99)
[2020-12-12 03:08] LABS: Anisocytosis (M) Present
[2020-12-12 03:12] LABS: Toxic Vacuolation Present
[2020-12-12 03:13] LABS: Poikilocytosis (M) Present
[2020-12-12 03:18] LABS: ABG Base Excess -5.4 mmol/L; ABG HCO3 24 mmol/L (21-25); ABG Oxygen Saturation 99.3 % (94-97); ABG PO2 258 mmHg (83-108); ABG TCO2 26 mmol/L (19-24); Allen Test Performed? Yes
[2020-12-12 03:20] LABS: ABG PCO2 74 mmHg (35-45); ABG PH 7.12 (7.35-7.45)
[2020-12-12 05:47] LABS: ABG Base Excess -4.2 mmol/L; ABG HCO3 23 mmol/L (21-25); ABG Oxygen Saturation 90.6 % (94-97); ABG PCO2 50 mmHg (35-45); ABG PH 7.27 (7.35-7.45); ABG PO2 60 mmHg (83-108); ABG TCO2 24 mmol/L (19-24); Allen Test Performed? Yes
[2020-12-12 06:16] LABS: Glucose,Whole Blood 131 mg/dL (75-99)
--- NOTE | 2020-12-12 06:45 | CONS ---
CONSULTATION CHIEF COMPLAINT: Unresponsiveness. HISTORY OF PRESENT ILLNESS: This is a 70-year-old lady with history of hypertension, mild to moderate nonocclusive disease involving circumflex coronary artery, who presented to the hospital having had unresponsiveness. The patient's son had a seizure and when EMS was called she was coming with her son and then suddenly became unresponsive. She was resuscitated. Apparently had agonal breathing, was intubated and an EKG done in the field felt to have showed acute ST-segment elevation in the precordial leads, due to which the ER doctor has activated the STEMI team and I am meeting the patient for the first time in the finishing lab technician. Patient is intubated, sedated on vent, she is hypotensive. She was hypertensive initially. An EKG shows sinus rhythm with diffuse ST-segment depression and poor R-wave progression. I looked at her EKG done by the EMS. While there are prominent T-waves in the precordial leads, I do not see significant ST-segment elevation. The patient initially presented to the ER with hypertension, received labetalol and became hypotensive and had to be started on Levophed. PAST MEDICAL HISTORY: Significant for coronary artery disease. She underwent cardiac catheterization in July of 2018 that revealed [id number] disease involving circumflex coronary artery. She also has a history of hypertension. I do not have any of her medications with me or allergies. Family history, social history, review of systems I am unable to obtain from the patient. PHYSICAL EXAM: Patient is intubated on vent, O2 saturation is 98%, heart rate is 52 beats per minute. Chest exam reveals diffuse rhonchi bilaterally. Heart exam reveals first and second heart sounds. No gallop. Has a systolic murmur at the left lower sternal border. Abdomen is soft. Exam of extremities reveals that the peripheral pulses are diminished. Labs are pending. ASSESSMENT: 1. Status post cardiac arrest. 2. Abnormal EKG. 3. History of coronary artery disease. PLAN: I will proceed with cardiac catheterization to rule out ischemic heart disease as an etiology for her clinical presentation. Will decide on further course of action based on the cath findings. MMODL / IJN: [id number] /
--- NOTE | 2020-12-12 06:54 | CC ---
CARDIAC CATHETERIZATION REPORT PROCEDURE PERFORMED: Cardiac catheterization. INDICATION: Acute cardiorespiratory failure. PROCEDURE NOTE: After obtaining informed consent, left heart catheterization and coronary angiogram were performed via the right femoral artery using standard Anmol catheters. The patient has diminished femoral pulses. The procedure was performed uneventfully in a patient who is intubated on vent and is currently on Levophed because of hypotension. HEMODYNAMICS: Left ventricular end-diastolic pressure is 21 mm. There is no significant gradient across the aortic valve. LEFT VENTRICULOGRAM: Not performed. ANGIOGRAPHIC DATA: The left main coronary artery: Left main coronary artery is a normal-sized vessel and is free of stenosis. Divides into left anterior descending coronary artery and circumflex coronary artery. Circumflex coronary artery is a large caliber vessel that is a nondominant vessel that shows mild nonobstructive disease in the proximal part. LAD shows mild nonobstructive disease involving mid LAD. Right coronary artery is a large dominant vessel that does not have significant obstructive disease involving mid or distal right coronary artery. PDA and PLV are free of significant disease. There is a marginal branch that shows a moderate diffuse disease. CONCLUSIONS: No significant obstructive disease in any major vessels. PLAN: The patient's clinical presentation is not related to an acute coronary event. She could have had a sudden cardiac arrhythmia related to acute emotional distress secondary to her son seizure. We will admit the patient to ICU. Obtain a 2D echo in the morning and see how she evolves from here. pt has severe pad with occlude superficial femoral artery MMODL / IJN: [id number] / MTDD
[2020-12-12 07:06] LABS: Calcium 8.1 mg/dL (8.4-10.2); Phosphorus 5.5 mg/dL (2.5-4.5); Potassium 4.5 mmol/L (3.5-5.1)
[2020-12-12 07:10] LABS: HCT 44.3 % (34.0-46.0); MCH 29.6 pg (25.0-35.0); MCHC 32.2 g/dL (31.0-37.0); MCV 92.1 fL (80.0-100.0); Mean Platelet Volume 8.8; Platelet Count 193 k/uL (150-450); RBC 4.81 m/uL (3.80-5.40); RDW 13.6 % (11.5-15.5)
[2020-12-12 07:15] LABS: HGB 14.2 gm/dL (11.4-16.0)
--- NOTE | 2020-12-12 08:42 | P.CNPUL ---
History of Present Illness Consult date: 12/12/20 Requesting physician: Kaylyn Qureshi Reason for consult: other (Mechanical ventilator/critical care management) Chief complaint: Hypertension History of present illness: This is a 70-year-old female patient with a known history of hypertension and follows with Dr. Zelaya as her primary care provider. She was brought into the emergency room just after midnight this morning with significant anxiety due to her son having a seizure. In the ER she became unresponsive and developed agonal breathing she was subsequently intubated and placed on mechanical ventilator. EKG showed acute ST segment elevation in the precordial leads and she was felt to be a ST segment elevation myocardial infarction and taken to the [facility]. Coronaries were only mildly obstructive. She was felt to possibly have a sudden cardiac arrhythmia related to acute emotional distress while her son was having a seizure. 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 Computed tomography scan of the brain revealed old left frontal lobe encephalomalacia. No acute intracranial abnormalities. She is seen today in consultation in the intensive care unit. She remains intubated on mechanical ventilator. Assist-control mode. Rate of 24. Tidal volume 350. FiO2 50% and a PEEP of 5. Morning blood gases revealed a pO2 of 60, pCO2 50, pH 7.27. She is sedated on propofol at 30 mcg/kg/m. She is requiring norepinephrine at 1 mcg/m. 0.9 normal saline at 70 mL per hour. Chest x-ray reveals bilateral acute pulmonary edema. CT angiogram ruled out pulmonary embolism. Moderate to severe pulmonary airspace edema. White count 16.0. Hemoglobin 4.2. Sodium 139. Potassium 4.5. Creatinine 1.07. Review of Systems ROS unobtainable: due to endotracheal tube Past Medical History Past Medical History: Hypertension History of Any Multi-Drug Resistant Organisms: None Reported Past Surgical History: Section Past Anesthesia/Blood Transfusion Reactions: No Reported Reaction Past Psychological History: No Psychological Hx Reported Past Alcohol Use History: None Reported Past Drug Use History: None Reported - Past Family History Father Family Medical History: CVA/TIA Mother Family Medical History: No Reported History Medications and Allergies Home Medications Medication Instructions Recorded Confirmed Type Nitroglycerin Sl Tabs [Nitrostat] 0.4 mg SUBLINGUAL Q5M PRN #60 tab 07/28/18 12/12/20 Rx carvediloL [Coreg*] 12.5 mg PO BID-W/MEALS #30 tab 07/28/18 12/12/20 Rx hydroCHLOROthiazide [Hydrodiuril] 12.5 mg PO DAILY #30 cap 07/28/18 12/12/20 Rx cloNIDine HCL [Catapres] 0.1 mg PO BID 12/12/20 12/12/20 History rOPINIRole HCL [Requip] 0.5 mg PO HS PRN 12/12/20 12/12/20 History Allergies Allergy/AdvReac Type Severity Reaction Status Date / Time aspirin Allergy Rash/Hives Verified 07/23/18 15:18 Physical Exam Vitals: Vital Signs Temp Pulse Resp BP Pulse Ox 12/12/20 07:00 48 L 24 113/60 97 12/12/20 06:30 47 L 24 119/64 96 12/12/20 06:08 96 12/12/20 06:00 45 L 24 113/60 96 12/12/20 05:30 113/60 12/12/20 05:08 90 L 12/12/20 05:00 45 L 24 106/59 89 L 12/12/20 04:30 46 L 24 109/60 88 L 12/12/20 04:08 88 L 12/12/20 04:00 54 L 24 125/67 90 L 12/12/20 03:38 99 12/12/20 03:30 48 L 24 164/86 98 12/12/20 03:20 48 L 14 164/86 99 12/12/20 03:10 49 L 13 191/92 98 12/12/20 03:08 98 12/12/20 03:00 94.5 F L 52 L 16 189/99 98 12/12/20 02:53 99 12/12/20 02:38 100 12/12/20 01:45 55 L 16 107/69 97 12/12/20 01:40 57 L 16 116/62 96 12/12/20 01:36 58 L 16 113/60 98 12/12/20 01:34 51 L 16 109/59 98 12/12/20 01:25 50 L 16 110/59 96 12/12/20 01:11 56 L 16 100/54 96 12/12/20 01:07 50 L 16 74/59 96 12/12/20 01:04 52 L 16 192/89 97 12/12/20 00:55 72 16 214/100 96 12/12/20 00:49 209/112 12/12/20 00:43 80 16 12/12/20 00:39 181/111 12/12/20 00:38 121 H 16 181/111 12/12/20 00:22 124 H 30 H 74 L Intake and Output 12/11/20 12/12/20 12/12/20 22:59 06:59 14:59 Intake Total 2601.384 96.84 Output Total 410 30 Balance 2191.384 66.84 Intake: IV 2525 75 Sodium Chloride 0.9% 1, 100 000 ml @ 100 mls/hr IV . Q10H [facility] Rx#:[id number] Sodium Chloride 0.9% 1, 225 75 000 ml @ 75 mls/hr IV . [id number] [facility] Rx#:[id number] Sodium Chloride 0.9% 1, 2000 000 ml @ 999 mls/hr IV . Q1H1M [facility] Rx#:[id number] Intake, IV Titration 76.384 21.84 Amount Norepinephrine 4 mg In 24.384 0 Sodium Chloride 0.9% 250 ml @ 0.05 MCG/KG/MIN 15. 24 mls/hr IV .[id number] [facility] Rx#:[id number] propofoL 1,000 mg In 2.56 Empty Bag 1 bag @ Titrate IV .Q0M ONE Rx#: [id number] propofoL 1,000 mg In 49.44 21.84 Empty Bag 1 bag @ Titrate IV .Q0M [facility] Rx#: [id number] Output: Urine 410 30 Other: Voiding Method Indwelling Catheter Weight 80 kg ABP, PAP, CO, CI - Last 8 Hours Arterial Blood Pressure 115/44 Arterial Blood Pressure 117/43 Arterial Blood Pressure 107/46 Arterial Blood Pressure 106/44 Arterial Blood Pressure 94/41 Arterial Blood Pressure 106/47 Arterial Blood Pressure 153/62 Arterial Blood Pressure 159/62 Arterial Blood Pressure 195/75 GENERAL EXAM: Intubated, sedated 70-year-old female patient, appears comfortable in no apparent distress. HEAD: Normocephalic. EYES: Normal reaction of pupils, equal size. NOSE: Clear with pink turbinates. THROAT: No erythema or exudates. NECK: No masses, no JVD. CHEST: No chest wall deformity. LUNGS: Equal air entry with crackles in the bilateral bases, few scattered rhonchi. CVS: S1 and S2 normal with no audible murmur, regular rhythm. ABDOMEN: No hepatosplenomegaly, normal bowel sounds, no guarding or rigidity. SPINE: No scoliosis or deformity SKIN: No rashes CENTRAL NERVOUS SYSTEM: No focal deficits, tone is normal in all 4 extremities. EXTREMITIES: There is trace peripheral edema. No clubbing, no cyanosis. Peripheral pulses are intact. Results - Laboratory Findings CBC and BMP: 12/12/20 06:15 12/12/20 06:15 ABG ABG pH 7.27 (7.35-7.45) L 12/12/20 05:24 ABG pCO2 50 mmHg (35-45) H 12/12/20 05:24 ABG pO2 60 mmHg (83-108) L 12/12/20 05:24 ABG O2 Saturation 90.6 % (94-97) L 12/12/20 05:24 PT/INR, D-dimer PT 10.2 sec (9.0-12.0) 12/12/20 00:41 INR 0.9 (<1.2) 12/12/20 00:41 Abnormal lab findings: Abnormal Labs 12/12/20 12/12/20 12/12/20 00:23 00:41 00:41 WBC 18.5 H RBC 5.91 H Hgb 17.8 H Hct 55.6 H Neutrophils # 9.7 H Lymphocytes # 7.4 H ABG pH ABG pCO2 ABG pO2 ABG Total CO2 ABG O2 Saturation Chloride BUN 25 H Creatinine 1.06 H Glucose 312 H POC Glucose (mg/dL) 304 H Plasma Lactic Acid Lonnie Calcium Phosphorus 9.1 H* AST 59 H Troponin I TSH 6.340 H Urine Protein Urine Glucose (UA) Urine Mucus 12/12/20 12/12/20 12/12/20 00:41 00:41 01:18 WBC RBC Hgb Hct Neutrophils # Lymphocytes # ABG pH ABG pCO2 ABG pO2 ABG Total CO2 ABG O2 Saturation Chloride BUN Creatinine Glucose POC Glucose (mg/dL) Plasma Lactic Acid Lonnie 4.4 H* Calcium Phosphorus AST Troponin I 0.048 H* TSH Urine Protein 2+ H Urine Glucose (UA) Trace H Urine Mucus Rare H 12/12/20 12/12/20 12/12/20 02:55 03:08 05:24 WBC RBC Hgb Hct Neutrophils # Lymphocytes # ABG pH 7.12 L* 7.27 L ABG pCO2 74 H* 50 H ABG pO2 258 H 60 L ABG Total CO2 26 H ABG O2 Saturation 99.3 H 90.6 L Chloride BUN Creatinine Glucose POC Glucose (mg/dL) 165 H Plasma Lactic Acid Lonnie Calcium Phosphorus AST Troponin I TSH Urine Protein Urine Glucose (UA) Urine Mucus 12/12/20 12/12/20 12/12/20 06:14 06:15 06:15 WBC 16.0 H RBC Hgb Hct Neutrophils # Lymphocytes # ABG pH ABG pCO2 ABG pO2 ABG Total CO2 ABG O2 Saturation Chloride 112 H BUN 28 H Creatinine 1.07 H Glucose 137 H POC Glucose (mg/dL) 131 H Plasma Lactic Acid Lonnie Calcium 8.1 L Phosphorus 5.5 H AST Troponin I TSH Urine Protein Urine Glucose (UA) Urine Mucus - Diagnostic Findings Chest x-ray: image reviewed CT scan - chest: image reviewed Assessment and Plan Assessment: 1 Acute hypoxemic respiratory failure secondary to acute flash pulmonary edema 2 Acute hypertensive emergency with possible mental status changes and fluid volume overload 3 Acute pulmonary edema, 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 No acute intracranial abnormalities. Plan: The patient was seen and evaluated by Dr. Bolaños Chest x-ray, CAT scans and labs reviewed Lasix 40 mg IVP 1 Daily interruption of sedation Possible extubation today dependent on her mental status We'll continue to follow and make further recommendations based on her clinical status I, the cosigning physician, performed a history & physical examination of the patient. Lungs sounds with crackles in the posterior bases, few scattered rhonchi. Maintaining good O2 saturations in the 90s on 50% FiO2 via the mechanical ventilator. I discussed the assessment and plan of care with my nurse practitioner, Jo Ann Michel. I attest to the above consultation as dictated by her. Time with Patient: Greater than 30
[2020-12-12] MEDS ORDERED: CHLORHEXIDINE GLUCONATE 15 ML CUP MUCOUS MEM SCH (09:00)
--- NOTE | 2020-12-12 09:38 | PN ---
PROGRESS NOTE Mrs. Quesada is a 70-year-old female who presented during the night to the hospital with possible seizure and collapse and became unresponsive. An EKG raised the question of ST-segment elevation by the EMS, but subsequently reviewing the EKG, there is no ST- segment elevation. She was intubated, hypotensive, underwent cardiac catheterization by Dr. Bustillos and was found to have no evidence of high-grade stenosis. She has prior history of cardiac catheterization in 2019 with mild to moderate obstructive disease. She remains intubated and sedated. She is on a low dose of norepinephrine. Chest CT angiogram revealed no evidence of dissection or pulmonary embolism with evidence of severe pulmonary airspace edema. As an outpatient she was on hydrochlorothiazide, Coreg and clonidine 0.1 mg twice a day. PHYSICAL EXAMINATION: GENERAL: She is a 70-year-old female, intubated, sedated. VITAL SIGNS: Blood pressure running in the 110s. Heart rate in the 50s and 40s. LUNGS: Clear anteriorly. HEART: Regular rhythm S1, S2. No S3. No rub appreciated with systolic murmur. ABDOMEN: Soft. Positive bowel sounds. No megaly. EXTREMITIES: No edema. Right femoral sheath noted. LAB DATA: BUN and creatinine 28 and 1.07, potassium 4.5. Her initial NT proBNP was 5450. Her pH was 7.12. Her EKG revealed a sinus mechanism with nonspecific ST-T wave changes and ST- segment progression, but no ST elevation. Her chest x-ray revealed diffuse infiltrate bilaterally, cannot exclude edema versus aspiration. IMPRESSION: 1. Respiratory failure with collapse. No evidence of significant obstructive coronary artery disease. 2. History of hypertension. 3. Mild coronary artery disease by cardiac catheterization with no evidence of high- grade stenosis. 4. Abnormal chest x-ray. 5. Rule out cardiomyopathy although not documented in the past. RECOMMENDATION: From the cardiac standpoint, will continue supportive care at this time. An echocardiogram with Doppler will be obtained. We will follow her heart rate and rhythm. We will continue to hold her beta john and her clonidine. She will be initiated on aspirin as well as a statin. Depending on her progress, further recommendation will be made. Her neurological status is unclear. Her prognosis remains guarded. MMODL / IJN: [id number] /
[2020-12-12] MEDS: ASPIRIN 81 MG PO SCH (10:04)
[2020-12-12] MEDS: ATORVASTATIN 40 MG TAB PO SCH (10:04)
[2020-12-12] MEDS ORDERED: FUROSEMIDE 10 MG/ML 4 ML VIAL IV STA (10:14)
--- NOTE | 2020-12-12 10:55 | ECHOF ---
Referral Reason:acs MEASUREMENTS -------- HEIGHT: 167.6 cm WEIGHT: 79.8 kg BP: 113/60 RVIDd: 3.0 cm (< 3.3) IVSd: 2.1 cm (0.6 - 1.1) LVIDd: 3.5 cm (3.9 - 5.3) LVPWd: 2.1 cm (0.6 - 1.1) IVSs: 2.1 cm LVIDs: 2.3 cm LVPWs: 2.1 cm LAESV Index (A-L): 35.56 ml/m Ao Diam: 2.8 cm (2.0 - 3.7) AV Cusp: 2.0 cm (1.5 - 2.6) LA Diam: 3.4 cm (2.7 - 3.8) MV EXCURSION: 16.432 mm (> 18.000) MV EF SLOPE: 70 mm/s (70 - 150) EPSS: 0.2 cm MV E Shakir: 0.60 m/s MV DecT: 214 ms MV A Shakir: 0.67 m/s MV E/A Ratio: 0.91 RAP: 5.00 mmHg RVSP: 31.71 mmHg FINDINGS -------- Resting bradycardia (HR<60bpm). This was a technically adequate study. The left ventricular size is normal. There is severe concentric left ventricular hypertrophy. Ove rall left ventricular systolic function is low-normal with, an EF between 50 - 55 %. The right ventricle is normal in size. LA is moderately dilated 34-39 ml/m2 The right atrial size is normal. Interatrial and interventricular septum intact. The aortic valve is trileaflet and appears structurally normal. There is mild aortic valve sclerosi s. There is no evidence of aortic regurgitation. Mild mitral regurgitation is present. Mild tricuspid regurgitation present. There is no evidence of pulmonary hypertension. The right v entricular systolic pressure, as measured by Doppler, is 31.71mmHg. There is no pulmonic regurgitation present. The aortic root size is normal. IVC Not well visulized. There is no pericardial effusion. CONCLUSIONS -------- 1. The left ventricular size is normal. 2. There is severe concentric left ventricular hypertrophy. 3. Overall left ventricular systolic function is low-normal with, an EF between 50 - 55 %. 4. LA is moderately dilated 34-39 ml/m2 5. There is mild aortic valve sclerosis. 6. Mild mitral regurgitation is present. 7. Mild tricuspid regurgitation present. QUALITY ASSURANCE NURSE: Melita Stahl RDCS
[2020-12-12 11:51] LABS: ABG Base Excess -0.7 mmol/L; ABG HCO3 25 mmol/L (21-25); ABG Oxygen Saturation 94.4 % (94-97); ABG PCO2 48 mmHg (35-45); ABG PH 7.33 (7.35-7.45); ABG PO2 71 mmHg (83-108); ABG TCO2 27 mmol/L (19-24); Allen Test Performed? Yes
--- NOTE | 2020-12-12 12:00 | P.HPIM ---
History of Present Illness 70-year-old the female admitted for respiratory failure and was subsequently intubated. Patient was dealing with significant anxiety due to son's seizure episode. Patient was later found unresponsive without agonal breathing was in tubated and was on mechanical ventilator. Patient presently is on assist- control ventilation FiO2 of 35% PEEP of 5 tidal volume of 350. Patient had ST segment elevation in the precordial leads because of which patient underwentcardiac cath. Which did not show any significant significant coronary occlusive disease. Patient had significant pulmonary edema. CT angiogram was done rule out pulmonary embolism. Patient has significant acute phase disease consistent with pulmonary edema. Creatinine is 1.07 at this time. Baseline within normal limits. It appears to have TakoSubo.Patient had a CT of the head which did not show any significant amount except for old and supplementation. REVIEW OF SYSTEMS: Unable to obtain due to her clinical condition PHYSICAL EXAMINATION: GENERAL: Intubated sedated Well developed, well nourished. HEENT: Pupils are round and equally reacting to light. EOMI. No scleral icterus. No conjunctival pallor. Normocephalic, atraumatic. No pharyngeal erythema. No thyromegaly. CARDIOVASCULAR: S1 and S2 present. No murmurs, rubs, or gallops. PULMONARY: Chest is clear to auscultation, no wheezing or crackles. ABDOMEN: Soft, nontender, nondistended, normoactive bowel sounds. No palpable organomegaly. MUSCULOSKELETAL: No joint swelling or deformity. EXTREMITIES: No cyanosis, clubbing, or pedal edema. NEUROLOGICAL: Patient is sedated at this time SKIN: No rashes. 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 Patient's IV fluids will be discussed uterine patient was started on IV Lasix today -Cardiac shock from assessment #1 improved now patient is off pressor support -Elevated troponins secondary to assessment #1 status post cardiac catheterization did not show any significant occlusive disease -Hypertension DVT prophylaxis: Lovenox GI prophylaxis Pepcid Past Medical History Past Medical History: Hypertension History of Any Multi-Drug Resistant Organisms: None Reported Past Surgical History: Section Past Anesthesia/Blood Transfusion Reactions: No Reported Reaction Past Psychological History: No Psychological Hx Reported Past Alcohol Use History: None Reported Past Drug Use History: None Reported - Past Family History Father Family Medical History: CVA/TIA Mother Family Medical History: No Reported History Medications and Allergies Home Medications Medication Instructions Recorded Confirmed Type Nitroglycerin Sl Tabs [Nitrostat] 0.4 mg SUBLINGUAL Q5M PRN #60 tab 07/28/18 12/12/20 Rx carvediloL [Coreg*] 12.5 mg PO BID-W/MEALS #30 tab 07/28/18 12/12/20 Rx hydroCHLOROthiazide [Hydrodiuril] 12.5 mg PO DAILY #30 cap 07/28/18 12/12/20 Rx cloNIDine HCL [Catapres] 0.1 mg PO BID 12/12/20 12/12/20 History rOPINIRole HCL [Requip] 0.5 mg PO HS PRN 12/12/20 12/12/20 History Allergies Allergy/AdvReac Type Severity Reaction Status Date / Time aspirin Allergy Rash/Hives Verified 07/23/18 15:18 Physical Exam Vitals: Vital Signs Temp Pulse Resp BP Pulse Ox 12/12/20 11:00 80 12 239/101 99 12/12/20 10:00 69 13 129/73 96 12/12/20 09:00 65 16 140/71 98 12/12/20 08:00 99.1 F 49 L 0 L 98 12/12/20 07:00 48 L 24 113/60 97 12/12/20 06:30 47 L 24 119/64 96 12/12/20 06:08 96 12/12/20 06:00 45 L 24 113/60 96 12/12/20 05:30 113/60 12/12/20 05:08 90 L 12/12/20 05:00 45 L 24 106/59 89 L 12/12/20 04:30 46 L 24 109/60 88 L 12/12/20 04:08 88 L 12/12/20 04:00 54 L 24 125/67 90 L 12/12/20 03:38 99 12/12/20 03:30 48 L 24 164/86 98 12/12/20 03:20 48 L 14 164/86 99 12/12/20 03:10 49 L 13 191/92 98 12/12/20 03:08 98 12/12/20 03:00 94.5 F L 52 L 16 189/99 98 12/12/20 02:53 99 12/12/20 02:38 100 07/21/21 01:45 55 L 16 107/69 97 12/12/20 01:40 57 L 16 116/62 96 12/12/20 01:36 58 L 16 113/60 98 12/12/20 01:34 51 L 16 109/59 98 12/12/20 01:25 50 L 16 110/59 96 12/12/20 01:11 56 L 16 100/54 96 12/12/20 01:07 50 L 16 74/59 96 12/12/20 01:04 52 L 16 192/89 97 12/12/20 00:55 72 16 214/100 96 12/12/20 00:49 209/112 12/12/20 00:43 80 16 12/12/20 00:39 181/111 12/12/20 00:38 121 H 16 181/111 12/12/20 00:22 124 H 30 H 74 L Intake and Output 12/11/20 12/12/20 12/12/20 22:59 06:59 14:59 Intake Total 2601.384 532.521 Output Total 410 630 Balance 2191.384 -97.479 Intake: IV 2525 375 Sodium Chloride 0.9% 1, 100 000 ml @ 100 mls/hr IV . Q10H [facility] Rx#:[id number] Sodium Chloride 0.9% 1, 225 375 000 ml @ 75 mls/hr IV . [id number] [facility] Rx#:[id number] Sodium Chloride 0.9% 1, 2000 000 ml @ 999 mls/hr IV . Q1H1M [facility] Rx#:[id number] Intake, IV Titration 76.384 57.521 Amount Norepinephrine 4 mg In 24.384 6.401 Sodium Chloride 0.9% 250 ml @ 0.05 MCG/KG/MIN 15. 24 mls/hr IV .[id number] [facility] Rx#:[id number] propofoL 1,000 mg In 2.56 Empty Bag 1 bag @ Titrate IV .Q0M ONE Rx#: [id number] propofoL 1,000 mg In 49.44 51.12 Empty Bag 1 bag @ Titrate IV .Q0M [facility] Rx#: [id number] Oral 100 Output: Urine 410 630 Other: Voiding Method Indwelling Catheter Indwelling Catheter Weight 80 kg ABP, PAP, CO, CI - Last 8 Hours Arterial Blood Pressure 126/52 Arterial Blood Pressure 103/47 Arterial Blood Pressure 115/44 Arterial Blood Pressure 117/43 Arterial Blood Pressure 107/46 Arterial Blood Pressure 106/44 Arterial Blood Pressure 94/41 Arterial Blood Pressure 106/47 Arterial Blood Pressure 153/62 Arterial Blood Pressure 159/62 Results CBC & Chem 7: 12/12/20 06:15 12/12/20 06:15 Labs: Abnormal Lab Results - Last 24 Hours (Table) 12/12/20 12/12/20 12/12/20 Range/Units 00:23 00:41 00:41 WBC 18.5 H (3.8-10.6) k/uL RBC 5.91 H (3.80-5.40) m/uL Hgb 17.8 H (11.4-16.0) gm/dL Hct 55.6 H (34.0-46.0) % Neutrophils # 9.7 H (1.3-7.7) k/uL Lymphocytes # 7.4 H (1.0-4.8) k/uL ABG pH (7.35-7.45) ABG pCO2 (35-45) mmHg ABG pO2 (83-108) mmHg ABG Total CO2 (19-24) mmol/L ABG O2 Saturation (94-97) % Chloride (98-107) mmol/L BUN 25 H (7-17) mg/dL Creatinine 1.06 H (0.52-1.04) mg/dL Glucose 312 H (74-99) mg/dL POC Glucose (mg/dL) 304 H (75-99) mg/dL Plasma Lactic Acid Lonnie (0.7-2.0) mmol/L Calcium (8.4-10.2) mg/dL Phosphorus 9.1 H* (2.5-4.5) mg/dL AST 59 H (14-36) U/L Troponin I (0.000-0.034) ng/mL TSH 6.340 H (0.465-4.680) mIU/L Urine Protein (Negative) Urine Glucose (UA) (Negative) Urine Mucus (None) /hpf 12/12/20 12/12/20 12/12/20 Range/Units 00:41 00:41 01:18 WBC (3.8-10.6) k/uL RBC (3.80-5.40) m/uL Hgb (11.4-16.0) gm/dL Hct (34.0-46.0) % Neutrophils # (1.3-7.7) k/uL Lymphocytes # (1.0-4.8) k/uL ABG pH (7.35-7.45) ABG pCO2 (35-45) mmHg ABG pO2 (83-108) mmHg ABG Total CO2 (19-24) mmol/L ABG O2 Saturation (94-97) % Chloride (98-107) mmol/L BUN (7-17) mg/dL Creatinine (0.52-1.04) mg/dL Glucose (74-99) mg/dL POC Glucose (mg/dL) (75-99) mg/dL Plasma Lactic Acid Lonnie 4.4 H* (0.7-2.0) mmol/L Calcium (8.4-10.2) mg/dL Phosphorus (2.5-4.5) mg/dL AST (14-36) U/L Troponin I 0.048 H* (0.000-0.034) ng/mL TSH (0.465-4.680) mIU/L Urine Protein 2+ H (Negative) Urine Glucose (UA) Trace H (Negative) Urine Mucus Rare H (None) /hpf 12/12/20 12/12/20 12/12/20 Range/Units 02:55 03:08 05:24 WBC (3.8-10.6) k/uL RBC (3.80-5.40) m/uL Hgb (11.4-16.0) gm/dL Hct (34.0-46.0) % Neutrophils # (1.3-7.7) k/uL Lymphocytes # (1.0-4.8) k/uL ABG pH 7.12 L* 7.27 L (7.35-7.45) ABG pCO2 74 H* 50 H (35-45) mmHg ABG pO2 258 H 60 L (83-108) mmHg ABG Total CO2 26 H (19-24) mmol/L ABG O2 Saturation 99.3 H 90.6 L (94-97) % Chloride (98-107) mmol/L BUN (7-17) mg/dL Creatinine (0.52-1.04) mg/dL Glucose (74-99) mg/dL POC Glucose (mg/dL) 165 H (75-99) mg/dL Plasma Lactic Acid Lonnie (0.7-2.0) mmol/L Calcium (8.4-10.2) mg/dL Phosphorus (2.5-4.5) mg/dL AST (14-36) U/L Troponin I (0.000-0.034) ng/mL TSH (0.465-4.680) mIU/L Urine Protein (Negative) Urine Glucose (UA) (Negative) Urine Mucus (None) /hpf 12/12/20 12/12/20 12/12/20 Range/Units 06:14 06:15 06:15 WBC 16.0 H (3.8-10.6) k/uL RBC (3.80-5.40) m/uL Hgb (11.4-16.0) gm/dL Hct (34.0-46.0) % Neutrophils # (1.3-7.7) k/uL Lymphocytes # (1.0-4.8) k/uL ABG pH (7.35-7.45) ABG pCO2 (35-45) mmHg ABG pO2 (83-108) mmHg ABG Total CO2 (19-24) mmol/L ABG O2 Saturation (94-97) % Chloride 112 H (98-107) mmol/L BUN 28 H (7-17) mg/dL Creatinine 1.07 H (0.52-1.04) mg/dL Glucose 137 H (74-99) mg/dL POC Glucose (mg/dL) 131 H (75-99) mg/dL Plasma Lactic Acid Lonnie (0.7-2.0) mmol/L Calcium 8.1 L (8.4-10.2) mg/dL Phosphorus 5.5 H (2.5-4.5) mg/dL AST (14-36) U/L Troponin I (0.000-0.034) ng/mL TSH (0.465-4.680) mIU/L Urine Protein (Negative) Urine Glucose (UA) (Negative) Urine Mucus (None) /hpf
[2020-12-12 12:24] LABS: Glucose,Whole Blood 107 mg/dL (75-99)
[2020-12-12] MEDS ORDERED: METOPROLOL TARTRATE 5 MG/5 ML VIAL IVP ONE (12:50)
[2020-12-12] MEDS ORDERED: NITROGLYCERIN OINT 1 INCH/GM PACKET TOPICAL STA (12:51)
[2020-12-12] MEDS ORDERED: cloNIDine 0.1 MG/24HR PATCH TRANSDERM SCH (13:00)
[2020-12-12] MEDS ORDERED: hydrALAZINE HCL 20 MG/ML 1 ML VIAL IVP STA (14:40)
[2020-12-12] MEDS: carvediloL 12.5 MG TAB PO SCH (17:48)
[2020-12-12] MEDS: FAMOTIDINE 20 MG/2 ML VIAL IV SCH (17:49)
[2020-12-12 18:18] LABS: Glucose,Whole Blood 112 mg/dL (75-99)
[2020-12-12] MEDS ORDERED: hydroCHLOROthiazide 12.5 MG CAP PO ONE (18:28)
[2020-12-12] MEDS ORDERED: carvediloL 6.25 MG TAB PO STA (21:49)
[2020-12-12] MEDS: FUROSEMIDE 10 MG/ML 4 ML VIAL IV SCH (22:35)
[2020-12-13] MEDS ORDERED: carvediloL 6.25 MG TAB PO STA (04:05)
[2020-12-13 04:16] LABS: Basophils % (A) 0 %; Eosinophils # (A) 0.1 k/uL (0-0.7); Eosinophils % (A) 1 %; HCT 43.7 % (34.0-46.0); HGB 14.3 gm/dL (11.4-16.0); Lymphocytes # (A) 1.3 k/uL (1.0-4.8); Lymphocytes % (A) 10 %; MCH 29.2 pg (25.0-35.0); MCHC 32.8 g/dL (31.0-37.0); MCV 89.2 fL (80.0-100.0); Mean Platelet Volume 8.9; Monocytes # (A) 0.5 k/uL (0-1.0); Monocytes % (A) 4 %; Neutrophils # (A) 10.9 k/uL (1.3-7.7); Neutrophils % (A) 84 %; Platelet Count 152 k/uL (150-450); RDW 13.2 % (11.5-15.5)
[2020-12-13 04:35] LABS: Albumin 3.6 g/dL (3.5-5.0); Calcium 8.7 mg/dL (8.4-10.2); Magnesium 1.8 mg/dL (1.6-2.3); Phosphorus 3.5 mg/dL (2.5-4.5); Potassium 2.8 mmol/L (3.5-5.1); Total Bilirubin 0.8 mg/dL (0.2-1.3)
[2020-12-13] MEDS ORDERED: Potassium Replacement Protocol 1 EACH MISC MISCELLANE PRN (05:45)
[2020-12-13] MEDS: POTASSIUM CHLORIDE ER 20 MEQ TAB.ER PO SCH ×2 (05:55→06:53)
[2020-12-13] MEDS: carvediloL 12.5 MG TAB PO SCH ×2 (05:59→17:20)
[2020-12-13] MEDS ORDERED: POTASSIUM CHLORIDE 10 MEQ in WATER FOR INJECTION 1 100ML.BAG IVPB ONE ×2 (06:00→07:00)
[2020-12-13 06:20] LABS: Glucose,Whole Blood 123 mg/dL (75-99)
[2020-12-13] MEDS ORDERED: IPRATROPIUM-ALBUTEROL 3 ML NEB INHALATION PRN (08:19)
[2020-12-13] MEDS ORDERED: hydroCHLOROthiazide 12.5 MG CAP PO SCH (09:00)
[2020-12-13] MEDS: ASPIRIN 81 MG PO SCH (09:23)
[2020-12-13] MEDS: SPIRONOLACTONE 25 MG TAB PO SCH (09:23)
[2020-12-13] MEDS: ENOXAPARIN 40 MG/0.4 ML SYRINGE SQ SCH (09:23)
[2020-12-13] MEDS: amLODIPine 5 MG TAB PO SCH (09:23)
[2020-12-13] MEDS: FAMOTIDINE 20 MG/2 ML VIAL IV SCH (09:23)
[2020-12-13] MEDS: ATORVASTATIN 40 MG TAB PO SCH (09:23)
[2020-12-13] MEDS: FUROSEMIDE 10 MG/ML 4 ML VIAL IV SCH ×2 (09:24→21:54)
[2020-12-13] MEDS: lisinopriL 10 MG TAB PO SCH ×2 (09:24→21:54)
[2020-12-13] MEDS: hydroCHLOROthiazide 25 MG TAB PO SCH (09:24)
--- NOTE | 2020-12-13 10:03 | P.PN ---
Subjective Progress Note Date: 12/13/20 Principal diagnosis: Hypertensive emergency, altered mental status This is a 70-year-old female patient with a known history of hypertension and follows with Dr. Zelaya as her primary care provider. She was brought into the emergency room just after midnight this morning with significant anxiety due to her son having a seizure. In the ER she became unresponsive and developed a gonal breathing she was subsequently intubated and placed on mechanical ventilator. EKG showed acute ST segment elevation in the precordial leads and she was felt to be a ST segment elevation myocardial infarction and taken to [facility]. Coronaries were only mildly obstructive. She was felt to possibly have a sudden cardiac arrhythmia related to acute emotional distress while her son was having a seizure. 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 Computed tomography scan of the brain revealed old left frontal lobe encephalomalacia. No acute intracranial abnormalities. She is seen today in consultation in the intensive care unit. She remains intubated on mechanical ventilator. Assist-control mode. Rate of 24. Tidal volume 350. FiO2 50% and a PEEP of 5. Morning blood gases revealed a pO2 of 60, pCO2 50, pH 7.27. She is sedated on propofol at 30 mcg/kg/m. She is requiring norepinephrine at 1 mcg/m. 0.9 normal saline at 70 mL per hour. Chest x-ray reveals bilateral acute pulmonary edema. CT angiogram ruled out pulmonary embolism. Moderate to severe pulmonary airspace edema. White count 16.0. Hemoglobin 4.2. Sodium 139. Potassium 4.5. Creatinine 1.07. The patient is seen today 12/13/2020 in follow-up in the intensive care unit. She was successfully extubated yesterday. She is currently on 2 L nasal cannula and maintaining O2 saturations in the 90s. She is awake and alert in no acute distress. She is somewhat bronchospastic and wheezy today. Chest x-ray shows improvement in the bilateral airspace disease, edema. Sputum culture pending. White count 13.0. Hemoglobin 14.3. Platelet count 152,000. Sodium 140. Potassium 2.8. Creatinine 1.00. AST 29. ALT 18. She remains on IV diuretics. Lovenox for DVT prophylaxis. Remains somewhat hypertensive. Objective - Vital Signs Vital signs: Vital Signs Temp 98.1 F 12/12/20 16:00 Pulse 80 12/13/20 07:00 Resp 25 H 12/13/20 07:00 BP 225/93 12/13/20 07:00 Pulse Ox 97 12/13/20 07:00 Intake & Output 12/12/20 12/13/20 12/13/20 18:59 06:59 18:59 Intake Total 717.521 230 Output Total 1955 2505 Balance -1237.479 -2275 Weight 80.2 kg Intake: IV 510 130 .9 KVO 60 130 Sodium Chloride 0.9% 1, 450 000 ml @ 75 mls/hr IV . [id number] JAVON Rx#:[id number] Intake, IV Titration 57.521 Amount Norepinephrine 4 mg In 6.401 Sodium Chloride 0.9% 250 ml @ 0.05 MCG/KG/MIN 15. 24 mls/hr IV .[id number] JAVON Rx#:[id number] propofoL 1,000 mg In 51.12 Empty Bag 1 bag @ Titrate IV .Q0M JAVON Rx#: [id number] Oral 150 100 Output: Urine 1954 2505 Other: Voiding Method Indwelling Catheter Indwelling Catheter ABP, PAP, CO, CI - Last Documented Arterial Blood Pressure 126/52 - Exam GENERAL EXAM: Alert, pleasant 70-year-old female patient, on 2 L nasal cannula, comfortable in no apparent distress. HEAD: Normocephalic. EYES: Normal reaction of pupils, equal size. NOSE: Clear with pink turbinates. THROAT: No erythema or exudates. NECK: No masses, no JVD. CHEST: No chest wall deformity. LUNGS: Equal air entry with faint crackles in the bilateral bases CVS: S1 and S2 normal with no audible murmur, regular rhythm. ABDOMEN: No hepatosplenomegaly, normal bowel sounds, no guarding or rigidity. SPINE: No scoliosis or deformity SKIN: No rashes CENTRAL NERVOUS SYSTEM: No focal deficits, tone is normal in all 4 extremities. EXTREMITIES: There is no peripheral edema. No clubbing, no cyanosis. Peripheral pulses are intact. - Labs CBC & Chem 7: 12/13/20 03:53 12/13/20 03:53 Labs: Abnormal Lab Results - Last 24 Hours (Table) 12/12/20 12/12/20 12/12/20 Range/Units 11:48 12:17 12:23 WBC (3.8-10.6) k/uL Neutrophils # (1.3-7.7) k/uL ABG pH 7.33 L (7.35-7.45) ABG pCO2 48 H (35-45) mmHg ABG pO2 71 L (83-108) mmHg ABG Total CO2 27 H (19-24) mmol/L Potassium (3.5-5.1) mmol/L BUN (7-17) mg/dL Glucose (74-99) mg/dL POC Glucose (mg/dL) 107 H (75-99) mg/dL Troponin I 0.146 H* (0.000-0.034) ng/mL Total Protein (6.3-8.2) g/dL 12/12/20 12/12/20 12/12/20 Range/Units 18:14 18:17 23:51 WBC (3.8-10.6) k/uL Neutrophils # (1.3-7.7) k/uL ABG pH (7.35-7.45) ABG pCO2 (35-45) mmHg ABG pO2 (83-108) mmHg ABG Total CO2 (19-24) mmol/L Potassium (3.5-5.1) mmol/L BUN (7-17) mg/dL Glucose (74-99) mg/dL POC Glucose (mg/dL) 112 H (75-99) mg/dL Troponin I 0.168 H* 0.200 H* (0.000-0.034) ng/mL Total Protein (6.3-8.2) g/dL 12/13/20 12/13/20 12/13/20 Range/Units 03:53 03:53 06:18 WBC 13.0 H (3.8-10.6) k/uL Neutrophils # 10.9 H (1.3-7.7) k/uL ABG pH (7.35-7.45) ABG pCO2 (35-45) mmHg ABG pO2 (83-108) mmHg ABG Total CO2 (19-24) mmol/L Potassium 2.8 L (3.5-5.1) mmol/L BUN 25 H (7-17) mg/dL Glucose 122 H (74-99) mg/dL POC Glucose (mg/dL) 123 H (75-99) mg/dL Troponin I (0.000-0.034) ng/mL Total Protein 6.0 L (6.3-8.2) g/dL Microbiology - Last 24 Hours (Table) 12/12/20 16:55 Gram Stain - Preliminary Sputum Sputum Culture - Preliminary Assessment and Plan Assessment: 1 Acute hypoxemic respiratory failure secondary to acute flash pulmonary edema requiring intubation mechanical ventilatory support. Extubated 12/12/2020. On 2 L nasal cannula. 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 No acute intracranial abnormalities. Plan: The patient was seen and evaluated by Dr. Bolaños Chest x-ray and labs reviewed We'll add DuoNeb updraft treatments Stable from the pulmonary standpoint Cleared for transfer to 3 S. today We'll continue to follow I, the cosigning physician, performed a history & physical examination of the patient. Lungs sounds with crackles in the posterior bases, few scattered rhonchi. Maintaining good O2 saturations in the 90s on 2 L/m per nasal cannula. I discussed the assessment and plan of care with my nurse practitioner, Jo Ann Michel. I attest to the above note as dictated by her.
--- NOTE | 2020-12-13 10:24 | XR ---
EXAMINATION TYPE: XR chest 1V DATE OF EXAM: 12/13/2020 COMPARISON: Chest x-ray dated 12/12/2020 HISTORY: Extubated, abnormal chest x-ray TECHNIQUE: Single frontal view of the chest is obtained. FINDINGS: There is improvement in the airspace disease seen within the lungs. Persistent basilar den sity is noted. There is no evident pneumothorax. Heart remains enlarged. Aorta is dense. IMPRESSION: Improved aeration, volume status.
--- NOTE | 2020-12-13 10:53 | PN ---
PROGRESS NOTE The patient is a 70-year-old female who presented to the emergency room with an unresponsiveness. There was a question of ST-segment elevation underwent cardiac catheterization that showed no evidence of high-grade stenosis. She was extubated yesterday. She is awake, alert. She denies any chest pain. Her breathing is stable. She has significant hypertension has been difficult to control and according to her blood pressure has been elevated at home. She has no malignant arrhythmia. No evidence of ventricular tachycardia or atrial fibrillation. Her echocardiogram that was performed yesterday revealed ejection fraction of 50% to 55%. There was mild mitral and tricuspid regurgitation. She is back taking oral medication, but continues to be quite hypertensive. She is at this time on labetalol 12 0.5 mg twice a day, clonidine patch #1 daily hydrochlorothiazide 12.5 mg daily. PHYSICAL EXAMINATION: Blood pressure running in the 200 with a heart rate in the 80s. Lungs few crackles bilaterally. HEART: Regular rhythm S1, S2 with a systolic murmur no diastolic murmur no rub. ABDOMEN: Soft nontender. EXTREMITIES: No edema. LAB DATA: Lab data revealed a peak troponin of 0.2, BUN creatinine 25, 1.0, potassium 2.8, hemoglobin of 14.3. IMPRESSION: 1. Episode of collapse of with no evidence of significant obstructive coronary disease. 2. Hypertension, uncontrolled. 3. Mild coronary artery disease. 4. Hypokalemia. RECOMMENDATION: From the cardiac standpoint, I will add to her regimen Norvasc 5 mg daily. I will also I would adjust her beta john dose with Aldactone and will follow her blood pressure and depending on her trend further recommendation will be made. MMODL / IJN: [id number] /
[2020-12-13 11:53] LABS: Glucose,Whole Blood 142 mg/dL (75-99)
[2020-12-13] MEDS: IPRATROPIUM-ALBUTEROL 3 ML NEB INHALATION SCH ×2 (13:05→21:28)
--- NOTE | 2020-12-13 16:12 | P.PN ---
Subjective 70-year-old the female admitted for respiratory failure and was subsequently intubated. Patient was dealing with significant anxiety due to son's seizure episode. Patient was later found unresponsive without agonal breathing was intubated and was on mechanical ventilator. Patient presently is on assist- control ventilation FiO2 of 35% PEEP of 5 tidal volume of 350. Patient had ST segment elevation in the precordial leads because of which patient underwentcardiac cath. Which did not show any significant significant coronary occlusive disease. Patient had significant pulmonary edema. CT angiogram was done rule out pulmonary embolism. Patient has significant acute phase disease consistent with pulmonary edema. Creatinine is 1.07 at this time. Baseline within normal limits. It appears to have TakoSubo.Patient had a CT of the head which did not show any significant amount except for old and supplementation. 12/13/2020 Patient is presently extubated clinically doing well presently on 2 L of nasal cannula patient is mildly wheezy. Otherwise clinically doing well. Patient is being transferred out of ICU. Patient remains IV Lasix. Patient progressed was extremely low which is being replaced. Patient blood pressure is very high patient was started on lisinopril serum creatinine appears to be within normal limits. Echocardiogram showed normal ejection fraction severe concentric left ventricular hypertrophy and Aldactone was added as well. Patient appears to have a diastolic dysfunction heart failure probably not Takoksubo. Constitutional: Denied any fatigue denied any fever. Cardio vascular: denied any chest pain, palpitations Gastrointestinal denied any nausea vomiting Pulmonary: Denied any shortness of breath cough Neurologic denied any new focal deficits All inpatient medications were reviewed and appropriate changes in these medications as dictated in the interval history and assessment and plan. PHYSICAL EXAMINATION: GENERAL: She is awake alert oriented 3 HEENT: Pupils are round and equally reacting to light. EOMI. No scleral icterus. No conjunctival pallor. Normocephalic, atraumatic. No pharyngeal erythema. No thyromegaly. CARDIOVASCULAR: S1 and S2 present. No murmurs, rubs, or gallops. PULMONARY: Chest is clear to auscultation, no wheezing or crackles. ABDOMEN: Soft, nontender, nondistended, normoactive bowel sounds. No palpable organomegaly. MUSCULOSKELETAL: No joint swelling or deformity. EXTREMITIES: No cyanosis, clubbing, or pedal edema. NEUROLOGICAL: Patient is sedated at this time SKIN: No rashes. Assessment and plan -Acute hypoxic respiratory failure secondary to pulmonary edema from chronic diastolic dysfunction with acute exacerbation. Patient is extubated on 12/13/2020. Clinically doing well patient is presently on 2 L of oxygen. -Cardiac shock from assessment #1 improved now patient is off pressor support -Elevated troponins secondary to assessment #1 status post cardiac catheterization did not show any significant occlusive disease -Hypertension uncontrolled elevated possible hypertensive urgency, maybe emergency room admission. Patient is presently on lisinopril and Norvasc and Aldactone along with Lasix. DVT prophylaxis: Lovenox GI prophylaxis Pepcid Objective - Vital Signs Vital signs: Vital Signs Temp 98.2 F 12/13/20 14:33 Pulse 71 12/13/20 14:33 Resp 20 12/13/20 14:33 BP 180/80 12/13/20 14:33 Pulse Ox 93 L 12/13/20 14:33 Intake & Output 12/12/20 12/13/20 12/13/20 18:59 06:59 18:59 Intake Total 717.521 230 260 Output Total 1954 2505 535 Balance -1237.809 -0953 -996 Weight 80.2 kg Intake: IV 510 130 60 .9 KVO 60 130 60 Sodium Chloride 0.9% 1, 450 000 ml @ 75 mls/hr IV . [id number] JAVON Rx#:[id number] Intake, IV Titration 57.521 Amount Norepinephrine 4 mg In 6.401 Sodium Chloride 0.9% 250 ml @ 0.05 MCG/KG/MIN 15. 24 mls/hr IV .[id number] JAVON Rx#:[id number] propofoL 1,000 mg In 51.12 Empty Bag 1 bag @ Titrate IV .Q0M JAVON Rx#: [id number] Oral 150 100 200 Output: Urine 1954 2505 535 Other: Voiding Method Indwelling Catheter Indwelling Catheter Indwelling Catheter ABP, PAP, CO, CI - Last Documented Arterial Blood Pressure 126/52 - Labs CBC & Chem 7: 12/13/20 03:53 12/13/20 11:43 Labs: Abnormal Lab Results - Last 24 Hours (Table) 12/12/20 12/12/20 12/12/20 Range/Units 18:14 18:17 23:51 WBC (3.8-10.6) k/uL Neutrophils # (1.3-7.7) k/uL Potassium (3.5-5.1) mmol/L BUN (7-17) mg/dL Glucose (74-99) mg/dL POC Glucose (mg/dL) 112 H (75-99) mg/dL Troponin I 0.168 H* 0.200 H* (0.000-0.034) ng/mL Total Protein (6.3-8.2) g/dL 12/13/20 12/13/20 12/13/20 Range/Units 03:53 03:53 06:18 WBC 13.0 H (3.8-10.6) k/uL Neutrophils # 10.9 H (1.3-7.7) k/uL Potassium 2.8 L (3.5-5.1) mmol/L BUN 25 H (7-17) mg/dL Glucose 122 H (74-99) mg/dL POC Glucose (mg/dL) 123 H (75-99) mg/dL Troponin I (0.000-0.034) ng/mL Total Protein 6.0 L (6.3-8.2) g/dL 12/13/20 Range/Units 11:51 WBC (3.8-10.6) k/uL Neutrophils # (1.3-7.7) k/uL Potassium (3.5-5.1) mmol/L BUN (7-17) mg/dL Glucose (74-99) mg/dL POC Glucose (mg/dL) 142 H (75-99) mg/dL Troponin I (0.000-0.034) ng/mL Total Protein (6.3-8.2) g/dL Microbiology - Last 24 Hours (Table) 12/12/20 16:55 Gram Stain - Preliminary Sputum Sputum Culture - Preliminary
[2020-12-14 01:23] LABS: Chol/HDL Ratio 3.27; LDL Cholesterol,Calculated 107.6 mg/dL (0.0-131.0); VLDL Calculation 28.4 mg/dL (5.00-40.00)
[2020-12-14] MEDS: carvediloL 12.5 MG TAB PO SCH ×2 (06:28→17:23)
[2020-12-14] MEDS: IPRATROPIUM-ALBUTEROL 3 ML NEB INHALATION SCH ×3 (07:38→20:10)
[2020-12-14] MEDS: ASPIRIN 81 MG PO SCH ×2 (08:18→08:22)
[2020-12-14] MEDS: ENOXAPARIN 40 MG/0.4 ML SYRINGE SQ SCH (08:18)
[2020-12-14] MEDS: FUROSEMIDE 10 MG/ML 4 ML VIAL IV SCH (08:18)
[2020-12-14] MEDS: lisinopriL 10 MG TAB PO SCH ×2 (08:19→20:51)
[2020-12-14] MEDS: amLODIPine 5 MG TAB PO SCH (08:19)
[2020-12-14] MEDS: ATORVASTATIN 40 MG TAB PO SCH (08:19)
[2020-12-14] MEDS: hydroCHLOROthiazide 25 MG TAB PO SCH (08:19)
[2020-12-14] MEDS: SPIRONOLACTONE 25 MG TAB PO SCH (08:19)
[2020-12-14] MEDS: FAMOTIDINE 20 MG/2 ML VIAL IV SCH (08:19)
[2020-12-14 08:44] LABS: Calcium 9.2 mg/dL (8.4-10.2); Potassium 3.4 mmol/L (3.5-5.1)
[2020-12-14] MEDS ORDERED: POTASSIUM CHLORIDE ER 20 MEQ TAB.ER PO STA (09:23)
--- NOTE | 2020-12-14 11:26 | P.PN ---
Subjective 70-year-old the female admitted for respiratory failure and was subsequently intubated. Patient was dealing with significant anxiety due to son's seizure episode. Patient was later found unresponsive without agonal breathing was intubated and was on mechanical ventilator. Patient presently is on assist- control ventilation FiO2 of 35% PEEP of 5 tidal volume of 350. Patient had ST segment elevation in the precordial leads because of which patient underwentcardiac cath. Which did not show any significant significant coronary occlusive disease. Patient had significant pulmonary edema. CT angiogram was done rule out pulmonary embolism. Patient has significant acute phase disease consistent with pulmonary edema. Creatinine is 1.07 at this time. Baseline within normal limits. It appears to have TakoSubo.Patient had a CT of the head which did not show any significant amount except for old and supplementation. 12/13/2020 Patient is presently extubated clinically doing well presently on 2 L of nasal cannula patient is mildly wheezy. Otherwise clinically doing well. Patient is being transferred out of ICU. Patient remains IV Lasix. Patient progressed was extremely low which is being replaced. Patient blood pressure is very high patient was started on lisinopril serum creatinine appears to be within normal limits. Echocardiogram showed normal ejection fraction severe concentric left ventricular hypertrophy and Aldactone was added as well. Patient appears to have a diastolic dysfunction heart failure probably not Takoksubo. 12/14/2020 Patient is feeling much better respiratory-slaughter was complaining of upset stomach earlier today morning patient is on multiple antibiotics medications including amlodipine Coreg clonidine lisinopril patient appears to have had a hypertensive emergency on admission. Patient remains on Lasix because of that reason I will discontinue Hydrochlorothiazide patient is bit hypokalemic potassium will be replaced. Patient will be transitioned to oral Lasix patient saturations are m uch better today chest x-ray from yesterday showed significant improvement in pulmonary edema. We'll consult physical therapy and occupational therapy possibility of discharge tomorrow. Constitutional: Denied any fatigue denied any fever. Cardio vascular: denied any chest pain, palpitations Gastrointestinal denied any nausea vomiting Pulmonary: Denied any shortness of breath cough Neurologic denied any new focal deficits All inpatient medications were reviewed and appropriate changes in these medications as dictated in the interval history and assessment and plan. PHYSICAL EXAMINATION: GENERAL: She is awake alert oriented 3 HEENT: Pupils are round and equally reacting to light. EOMI. No scleral icterus. No conjunctival pallor. Normocephalic, atraumatic. No pharyngeal erythema. No th yromegaly. CARDIOVASCULAR: S1 and S2 present. No murmurs, rubs, or gallops. PULMONARY: Chest is clear to auscultation, no wheezing or crackles. ABDOMEN: Soft, nontender, nondistended, normoactive bowel sounds. No palpable organomegaly. MUSCULOSKELETAL: No joint swelling or deformity. EXTREMITIES: No cyanosis, clubbing, or pedal edema. NEUROLOGICAL: Patient is sedated at this time SKIN: No rashes. Assessment and plan -Acute hypoxic respiratory failure secondary to pulmonary edema from chronic diastolic dysfunction with acute exacerbation. Patient is extubated on 12/13/2020. Clinically doing well patient is presently on 2 L of oxygen. -Cardiac shock from assessment #1 improved now patient is off pressor support -Elevated troponins secondary to assessment #1 status post cardiac fawad terization did not show any significant occlusive disease -Hypertension uncontrolled hypertensive emergency and admission with flash pulmonary edema and myocardial injury. Patient is presently on lisinopril and Norvasc and Aldactone along with Lasix. Physical therapy and outpatient therapy evaluation possibility of discharge tomorrow DVT prophylaxis: Lovenox GI prophylaxis Pepcid Objective - Vital Signs Vital signs: Vital Signs Temp 97.9 F 12/14/20 08:00 Pulse 66 12/14/20 08:00 Resp 18 12/14/20 08:00 BP 152/63 12/14/20 08:00 Pulse Ox 95 12/14/20 08:00 Intake & Output 12/13/20 12/14/20 12/14/20 18:59 06:59 18:59 Intake Total 500 475 118 Output Total 535 1125 200 Balance -35 -650 -82 Weight 78 kg Intake: IV 60 .9 KVO 60 Intake, IV Titration 475 Amount Potassium Chloride 10 meq 475 In Water For Injection 1 100ml.bag @ 100 mls/hr IVPB ONCE ONE Rx#: [id number] Oral 440 118 Output: Urine 535 1125 200 Other: Voiding Method Indwelling Catheter Toilet # Voids 1 ABP, PAP, CO, CI - Last Documented Arterial Blood Pressure 126/52 - Labs CBC & Chem 7: 12/13/20 03:53 12/14/20 07:26 Labs: Abnormal Lab Results - Last 24 Hours (Table) 12/13/20 12/14/20 Range/Units 11:51 07:26 Potassium 3.4 L (3.5-5.1) mmol/L Carbon Dioxide 35 H (22-30) mmol/L BUN 28 H (7-17) mg/dL Creatinine 1.08 H (0.52-1.04) mg/dL Glucose 123 H (74-99) mg/dL POC Glucose (mg/dL) 142 H (75-99) mg/dL Microbiology - Last 24 Hours (Table) 12/12/20 16:55 Gram Stain - Final Sputum Sputum Culture - Final
--- NOTE | 2020-12-14 13:44 | P.PN ---
Subjective Progress Note Date: 12/14/20 Principal diagnosis: Hypertensive emergency, altered mental status, shortness of breath This is a 70-year-old female patient with a known history of hypertension and follows with Dr. Zelaya as her primary care provider. She was brought into the emergency room just after midnight this morning with significant anxiety due to her son having a seizure. In the ER she became unresponsive and developed agonal breathing she was subsequently intubated and placed on mechanical ventilator. EKG showed acute ST segment elevation in the precordial leads and she was felt to be a ST segment elevation myocardial infarction and taken to the [facility]. Coronaries were only mildly obstructive. She was felt to possibly have a sudden cardiac arrhythmia related to acute emotional distress while her son was having a seizure. 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 Computed tomography scan of the brain revealed old left frontal lobe encephalomalacia. No acute intracranial abnormalities. She is seen today in consultation in the intensive care unit. She remains intubated on mechanical ventilator. Assist-control mode. Rate of 24. Tidal volume 350. FiO2 50% and a PEEP of 5. Morning blood gases revealed a pO2 of 60, pCO2 50, pH 7.27. She is sedated on propofol at 30 mcg/kg/m. She is requiring norepinephrine at 1 mcg/m. 0.9 normal saline at 70 mL per hour. Chest x-ray reveals bilateral acute pulmonary edema. CT angiogram ruled out pulmonary embolism. Moderate to severe pulmonary airspace edema. White count 16.0. Hemoglobin 4.2. Sodium 139. Potassium 4.5. Creatinine 1.07. The patient is seen today 12/13/2020 in follow-up in the intensive care unit. She was successfully extubated yesterday. She is currently on 2 L nasal cannula and maintaining O2 saturations in the 90s. She is awake and alert in no acute distress. She is somewhat bronchospastic and wheezy today. Chest x-ray shows improvement in the bilateral airspace disease, edema. Sputum culture pending. White count 13.0. Hemoglobin 14.3. Platelet count 152,000. Sodium 140. Po tassium 2.8. Creatinine 1.00. AST 29. ALT 18. She remains on IV diuretics. Lovenox for DVT prophylaxis. Remains somewhat hypertensive. On 12/14/2020 patient seen in follow-up on selective care unit, she is awake and alert, oriented 3, she is sitting up in the recliner, she is currently on 2 L of oxygen, she is breathing quite comfortably, her pulse ox is 96%, vital signs are stable, blood pressures much better control, is 142/60 this afternoon, she is afebrile, heart rate is controlled. She is status post cardiac catheterization which showed no evidence of significant obstructive coronary disease. Cardiology recommendations were noted, Norvasc was added, patient is on clonidine patch 0.1 mg per 24 hours, carvedilol 25 mg twice a day, and Aldactone 25 mg daily. Today's labs have been noted, potassium is 3.4, this was replaced per protocol, renal function is relatively stable with BUN of 28 and creatinine of 1.08. No coughing, no phlegm production, no wheezing, last chest x-ray was done yesterday which showed improved aeration and volume status. Distal continues to be in negative fluid balance of 685 ML over last 24 hours. She remains on oral Lasix 40 mg twice daily. She continues on breathing treatments. Objective - Vital Signs Vital signs: Vital Signs Temp 97.5 F L 12/14/20 12:00 Pulse 60 12/14/20 12:02 Resp 18 12/14/20 12:00 BP 142/60 12/14/20 12:00 Pulse Ox 96 12/14/20 12:00 Intake & Output 12/13/20 12/14/20 12/14/20 18:59 06:59 18:59 Intake Total 500 475 118 Output Total 535 1125 200 Balance -35 -650 -82 Weight 78 kg Intake: IV 60 .9 KVO 60 Intake, IV Titration 475 Amount Potassium Chloride 10 meq 475 In Water For Injection 1 100ml.bag @ 100 mls/hr IVPB ONCE ONE Rx#: [id number] Oral 440 118 Output: Urine 535 1125 200 Other: Voiding Method Indwelling Catheter Toilet # Voids 1 ABP, PAP, CO, CI - Last Documented Arterial Blood Pressure 126/52 - Exam GENERAL EXAM: Alert, active, comfortable in no apparent distress, very plea ash, 70-year-old white female, currently on 2 L of oxygen, sitting up in the recliner, HEAD: Normocephalic/atraumatic. EYES: Normal reaction of pupils, equal size. Conjunctiva pink, sclera white. NOSE: Clear with pink turbinates. THROAT: No erythema or exudates. NECK: No masses, no JVD, no thyroid enlargement, no adenopathy. CHEST: No chest wall deformity. Symmetrical expansion. LUNGS: Equal air entry with no crackles, wheeze, rhonchi or dullness. CVS: Regular rate and rhythm, normal S1 and S2, no gallops, no murmurs, no rubs ABDOMEN: Soft, nontender. No hepatosplenomegaly, normal bowel sounds, no guarding or rigidity. EXTREMITIES: No clubbing, no edema, no cyanosis, 2+ pulses and upper and lower extremities. MUSCULOSKELETAL: Muscle strength and tone normal. SPINE: No scoliosis or deformity SKIN: No rashes CENTRAL NERVOUS SYSTEM: Alert and oriented -3. No focal deficits, tone is n ormal in all 4 extremities. PSYCHIATRIC: Alert and oriented -3. Appropriate affect. Intact judgment and insight. - Labs CBC & Chem 7: 12/13/20 03:53 12/14/20 07:26 Labs: Abnormal Lab Results - Last 24 Hours (Table) 12/14/20 Range/Units 07:26 Potassium 3.4 L (3.5-5.1) mmol/L Carbon Dioxide 35 H (22-30) mmol/L BUN 28 H (7-17) mg/dL Creatinine 1.08 H (0.52-1.04) mg/dL Glucose 123 H (74-99) mg/dL Microbiology - Last 24 Hours (Table) 12/12/20 16:55 Gram Stain - Final Sputum Sputum Culture - Final Assessment and Plan Plan: Assessment: #1. Acute hypoxic respiratory failure secondary to acute pulmonary edema re quiring intubation and mechanical ventilatory support, successfully weaned and extubated on 12/12/2020, currently on 2 L of oxygen #2. Acute hypertensive emergency, improved #3. 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 No evidence of obstructive coronary disease on catheterization #6. History of hypertension #7. 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 Altered mental status on presentation related to acute hypoxic respiratory failure and hypertensive emergency, improved Plan: Patient is breathing comfortably Continue diuretics and blood pressure control medications per cardiology Weaning FiO2 Heart results were noted Echocardiogram results noted Chest x-ray reviewed overall improving blood pressures better controlled, no complaints of chest pain no worsening dyspnea I performed a history & physical examination of the patient and discussed their management with my nurse practitioner, Venessa Camp. I reviewed the nurse practitioner's note and agree with the documented findings and plan of care. Lung sounds are positive for diminished breath sounds. The findings and the impression was discussed with the patient. I attest to the documentation by the nurse practitioner. Time with Patient: Less than 30
--- NOTE | 2020-12-14 14:50 | P.PN ---
Subjective Progress Note Date: 12/14/20 This is a 70-year-old female patient who presented to the emergency department with episode of unresponsiveness. She was initially intubated and on mechanical ventilator. There was a question of ST segment elevation and she subsequently underwent cardiac catheterization that showed no evidence of high-grade stenosis. She has since been extubated. Echocardiogram showed an ejection fraction of 50-55% with mild MR and mild TR. Upon examination the patient is sitting up in a chair. She is overall feeling okay at this time. She did have an episode of nausea with vomiting following breakfast this morning. He has been afebrile. Her heart rate has been in the 50s and 60s. Blood pressure this morning 152/63 and she is satting 95% on 2 L via nasal cannula. Objective - Vital Signs Vital signs: Vital Signs Temp 97.9 F 12/14/20 08:00 Pulse 60 12/14/20 12:02 Resp 18 12/14/20 08:00 BP 152/63 12/14/20 08:00 Pulse Ox 95 12/14/20 08:00 Intake & Output 12/13/20 12/14/20 12/14/20 18:59 06:59 18:59 Intake Total 500 475 118 Output Total 535 1125 200 Balance -35 -650 -82 Weight 78 kg Intake: IV 60 .9 KVO 60 Intake, IV Titration 475 Amount Potassium Chloride 10 meq 475 In Water For Injection 1 100ml.bag @ 100 mls/hr IVPB ONCE ONE Rx#: [id number] Oral 440 118 Output: Urine 535 1125 200 Other: Voiding Method Indwelling Catheter Toilet # Voids 1 ABP, PAP, CO, CI - Last Documented Arterial Blood Pressure 126/52 - Exam PHYSICAL EXAMINATION: HEENT: Head is atraumatic, normocephalic. Pupils equal, round. Neck is supple. There is no elevated jugular venous pressure. HEART EXAMINATION: Heart sounds regular, S1 and S2 normal systolic murmur. CHEST EXAMINATION: Lungs are clear to auscultation. No chest wall tenderness is noted on palpation or with deep breathing. ABDOMEN: Soft, nontender. Bowel sounds are heard. No organomegaly noted. EXTREMITIES: 2+ peripheral pulses with no evidence of peripheral edema and no calf tenderness noted. NEUROLOGIC patient is awake and alert . - Labs CBC & Chem 7: 12/13/20 03:53 12/14/20 07:26 Labs: Abnormal Lab Results - Last 24 Hours (Table) 12/14/20 Range/Units 07:26 Potassium 3.4 L (3.5-5.1) mmol/L Carbon Dioxide 35 H (22-30) mmol/L BUN 28 H (7-17) mg/dL Creatinine 1.08 H (0.52-1.04) mg/dL Glucose 123 H (74-99) mg/dL Microbiology - Last 24 Hours (Table) 12/12/20 16:55 Gram Stain - Final Sputum Sputum Culture - Final Assessment and Plan Assessment: #1 episode of collapse with no evidence of significant obstructive coronary artery disease #2 hypertension #3 mild CAD #4 peripheral artery disease #5 hypokalemia Plan: From Cardiology's perspective we will decrease Lasix dose. Continues to monitor renal function and electrolytes, daily weights as well as intake and output. We will continue to follow the patient and provide further recommendations accordingly. FOIL SPOOLER note has been reviewed, I agree with a documented findings and plan of care. Patient was seen and examined.
[2020-12-14] MEDS: FUROSEMIDE 20 MG TAB PO SCH (16:00)
[2020-12-14] MEDS ORDERED: FUROSEMIDE 40 MG TAB PO SCH (16:00)
[2020-12-15] MEDS: carvediloL 12.5 MG TAB PO SCH ×2 (06:22→17:30)
[2020-12-15] MEDS: PANTOPRAZOLE 40 MG TABLET PO SCH (06:22)
[2020-12-15] MEDS: IPRATROPIUM-ALBUTEROL 3 ML NEB INHALATION SCH ×3 (07:57→20:11)
[2020-12-15] MEDS: SPIRONOLACTONE 25 MG TAB PO SCH (08:13)
[2020-12-15] MEDS: lisinopriL 10 MG TAB PO SCH ×2 (08:13→20:00)
[2020-12-15] MEDS: amLODIPine 5 MG TAB PO SCH (08:13)
[2020-12-15] MEDS: ATORVASTATIN 40 MG TAB PO SCH (08:13)
[2020-12-15] MEDS: ENOXAPARIN 40 MG/0.4 ML SYRINGE SQ SCH (08:13)
[2020-12-15] MEDS: FUROSEMIDE 20 MG TAB PO SCH ×2 (08:13→16:30)
[2020-12-15 08:14] LABS: Calcium 9.5 mg/dL (8.4-10.2); Potassium 3.6 mmol/L (3.5-5.1)
[2020-12-15] MEDS: ASPIRIN 81 MG PO SCH (08:17)
[2020-12-15] MEDS ORDERED: POTASSIUM CHLORIDE ER 20 MEQ TAB.ER PO STA (09:55)
--- NOTE | 2020-12-15 09:57 | P.PN ---
Subjective 70-year-old the female admitted for respiratory failure and was subsequently intubated. Patient was dealing with significant anxiety due to son's seizure episode. Patient was later found unresponsive without agonal breathing was intubated and was on mechanical ventilator. Patient presently is on assist- control ventilation FiO2 of 35% PEEP of 5 tidal volume of 350. Patient had ST segment elevation in the precordial leads because of which patient underwentcardiac cath. Which did not show any significant significant coronary occlusive disease. Patient had significant pulmonary edema. CT angiogram was done rule out pulmonary embolism. Patient has significant acute phase disease consistent with pulmonary edema. Creatinine is 1.07 at this time. Baseline within normal limits. It appears to have TakoSubo.Patient had a CT of the head which did not show any significant amount except for old and supplementation. 12/13/2020 Patient is presently extubated clinically doing well presently on 2 L of nasal cannula patient is mildly wheezy. Otherwise clinically doing well. Patient is being transferred out of ICU. Patient remains IV Lasix. Patient progressed was extremely low which is being replaced. Patient blood pressure is very high patient was started on lisinopril serum creatinine appears to be within normal limits. Echocardiogram showed normal ejection fraction severe concentric left ventricular hypertrophy and Aldactone was added as well. Patient appears to have a diastolic dysfunction heart failure probably not Takoksubo. 12/14/2020 Patient is feeling much better respiratory-slaughter was complaining of upset stomach earlier today morning patient is on multiple antibiotics medications including amlodipine Coreg clonidine lisinopril patient appears to have had a hypertensive emergency on admission. Patient remains on Lasix because of that reason I will discontinue Hydrochlorothiazide patient is bit hypokalemic potassium will be replaced. Patient will be transitioned to oral Lasix patient saturations are m uch better today chest x-ray from yesterday showed significant improvement in pulmonary edema. We'll consult physical therapy and occupational therapy possibility of discharge tomorrow. 12/15/2020 Patient desaturated to 86% without oxygen because of which I'm giving an additional Lasix will order a chest x-ray, if we are able to wean her off oxygen by tomorrow patient will be discharged tomorrow. Constitutional: Denied any fatigue denied any fever. Cardio vascular: denied any chest pain, palpitations Gastrointestinal denied any nausea vomiting Pulmonary: Denied any shortness of breath cough Neurologic denied any new focal deficits All inpatient medications were reviewed and appropriate changes in these medications as dictated in the interval history and assessment and plan. PHYSICAL EXAMINATION: GENERAL: She is awake alert oriented 3 HEENT: Pupils are round and equally reacting to light. EOMI. No scleral icterus. No conjunctival pallor. Normocephalic, atraumatic. No pharyngeal erythema. No thyromegaly. CARDIOVASCULAR: S1 and S2 present. No murmurs, rubs, or gallops. PULMONARY: Chest is clear to auscultation, no wheezing or crackles. ABDOMEN: Soft, nontender, nondistended, normoactive bowel sounds. No palpable organomegaly. MUSCULOSKELETAL: No joint swelling or deformity. EXTREMITIES: No cyanosis, clubbing, or pedal edema. NEUROLOGICAL: Patient is sedated at this time SKIN: No rashes. Assessment and plan -Acute hypoxic respiratory failure secondary to pulmonary edema from chronic diastolic dysfunction with acute exacerbation. Patient is extubated on 12/13/2020. Clinically doing well patient is presently on 2 L of oxygen. -Cardiac shock from assessment #1 resolved now -Elevated troponins secondary to assessment #1 status post cardiac catheterization did not show any significant occlusive disease -Hypertension uncontrolled hypertensive emergency and admission with flash pulmonary edema and myocardial injury. Patient is presently on lisinopril and Norvasc and Aldactone along with Lasix. Physical therapy and outpatient therapy evaluation possibility of discharge tomorrow DVT prophylaxis: Lovenox GI prophylaxis Pepcid Objective - Vital Signs Vital signs: Vital Signs Temp 98.2 F 12/15/20 04:00 Pulse 64 12/15/20 08:09 Resp 20 12/15/20 04:00 BP 164/70 12/15/20 04:00 Pulse Ox 95 12/15/20 07:57 Intake & Output 12/14/20 12/15/20 12/15/20 18:59 06:59 18:59 Intake Total 358 180 Output Total 200 Balance 158 180 Weight 80.5 kg Intake: Oral 358 180 Output: Urine 200 Other: Voiding Method Toilet # Voids 1 2 ABP, PAP, CO, CI - Last Documented Arterial Blood Pressure 126/52 - Labs CBC & Chem 7: 12/13/20 03:53 12/15/20 07:22 Labs: Abnormal Lab Results - Last 24 Hours (Table) 12/15/20 Range/Units 07:22 Carbon Dioxide 35 H (22-30) mmol/L BUN 36 H (7-17) mg/dL Creatinine 1.16 H (0.52-1.04) mg/dL Glucose 128 H (74-99) mg/dL Microbiology - Last 24 Hours (Table) 12/12/20 16:55 Gram Stain - Final Sputum Sputum Culture - Final
[2020-12-15] MEDS ORDERED: FUROSEMIDE 10 MG/ML 4 ML VIAL IV STA (10:05)
--- NOTE | 2020-12-15 11:02 | XR ---
EXAMINATION TYPE: XR chest 1V DATE OF EXAM: 12/15/2020 COMPARISON: 12/13/2020 HISTORY: 70 years Female. STUDY INDICATION GIVEN: CHF TECHNIQUE: AP portable chest radiograph FINDINGS AND IMPRESSION: Worsening bibasilar left greater than right opacities likely on the basis of atelectasis and/or colla pse. Developing infiltrate cannot be entirely excluded. Cardiac silhouette enlarged. Mediastinal silhouette within normal. Atherosclerotic calcification seen in the intrathoracic aorta. No pneumothorax seen. Trace left pleural effusion similar to prior study. No acute osseous abnormality. Degenerative changes in the spine and bilateral shoulder joints.
--- NOTE | 2020-12-15 12:37 | P.PN ---
Subjective Progress Note Date: 12/15/20 Principal diagnosis: Hypertensive emergency, altered mental status, shortness of breath This is a 70-year-old female patient with a known history of hypertension and follows with Dr. Zelaya as her primary care provider. She was brought into the emergency room just after midnight this morning with significant anxiety due to her son having a seizure. In the ER she became unresponsive and developed agonal breathing she was subsequently intubated and placed on mechanical ventilator. EKG showed acute ST segment elevation in the precordial leads and she was felt to be a ST segment elevation myocardial infarction and taken to the [facility]. Coronaries were only mildly obstructive. She was felt to possibly have a sudden cardiac arrhythmia related to acute emotional distress while her son was having a seizure. 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 Computed tomography scan of the brain revealed old left frontal lobe encephalomalacia. No acute intracranial abnormalities. She is seen today in consultation in the intensive care unit. She remains intubated on mechanical ventilator. Assist-control mode. Rate of 24. Tidal volume 350. FiO2 50% and a PEEP of 5. Morning blood gases revealed a pO2 of 60, pCO2 50, pH 7.27. She is sedated on propofol at 30 mcg/kg/m. She is requiring norepinephrine at 1 mcg/m. 0.9 normal saline at 70 mL per hour. Chest x-ray reveals bilateral acute pulmonary edema. CT angiogram ruled out pulmonary embolism. Moderate to severe pulmonary airspace edema. White count 16.0. Hemoglobin 4.2. Sodium 139. Potassium 4.5. Creatinine 1.07. The patient is seen today 12/13/2020 in follow-up in the intensive care unit. She was successfully extubated yesterday. She is currently on 2 L nasal cannula and maintaining O2 saturations in the 90s. She is awake and alert in no acute distress. She is somewhat bronchospastic and wheezy today. Chest x-ray shows improvement in the bilateral airspace disease, edema. Sputum culture pending. White count 13.0. Hemoglobin 14.3. Platelet count 152,000. Sodium 140. Po tassium 2.8. Creatinine 1.00. AST 29. ALT 18. She remains on IV diuretics. Lovenox for DVT prophylaxis. Remains somewhat hypertensive. On 12/14/2020 patient seen in follow-up on selective care unit, she is awake and alert, oriented 3, she is sitting up in the recliner, she is currently on 2 L of oxygen, she is breathing quite comfortably, her pulse ox is 96%, vital signs are stable, blood pressures much better control, is 142/60 this afternoon, she is afebrile, heart rate is controlled. She is status post cardiac catheterization which showed no evidence of significant obstructive coronary disease. Cardiology recommendations were noted, Norvasc was added, patient is on clonidine patch 0.1 mg per 24 hours, carvedilol 25 mg twice a day, and Aldactone 25 mg daily. Today's labs have been noted, potassium is 3.4, this was replaced per protocol, renal function is relatively stable with BUN of 28 and creatinine of 1.08. No coughing, no phlegm production, no wheezing, last chest x-ray was done yesterday which showed improved aeration and volume status. Distal continues to be in negative fluid balance of 685 ML over last 24 hours. She remains on oral Lasix 40 mg twice daily. She continues on breathing treatments. On 12/15/2020 patient seen in follow-up on selective care unit, she is on 2 L of oxygen pulse ox is 94-95%, vital signs have been stable, she has been ambulating to the bathroom, reports of chest pain, or worsening shortness of breath, today's chest x-ray shows bibasilar left greater than the right opacities slightly worsened compared to previous chest x-ray on the basis of atelectasis, developing infiltrate could not be entirely excluded. The patient has had no fever or chills, no cough or wheezing. Currently on Lasix, which has been transitioned to oral Lasix 20 mg twice daily, she has received one extra dose of IV Lasix today, she remains on nebulized bronchodilators. Patient had episode of desaturation this morning, her discharge has been held. Objective - Vital Signs Vital signs: Vital Signs Temp 98.0 F 12/15/20 08:00 Pulse 64 12/15/20 08:09 Resp 20 12/15/20 08:00 BP 164/73 12/15/20 08:00 Pulse Ox 94 L 12/15/20 08:00 Intake & Output 12/14/20 12/15/20 12/15/20 18:59 06:59 18:59 Intake Total 358 180 Output Total 200 Balance 158 180 Weight 80.5 kg Intake: Oral 358 180 Output: Urine 200 Other: Voiding Method Toilet # Voids 1 2 ABP, PAP, CO, CI - Last Documented Arterial Blood Pressure 126/52 - Exam GENERAL EXAM: Alert, active, comfortable in no apparent distress, very pleasant, 70-year-old white female, currently on 2 L of oxygen, sitting up in the recliner, HEAD: Normocephalic/atraumatic. EYES: Normal reaction of pupils, equal size. Conjunctiva pink, sclera white. NOSE: Clear with pink turbinates. THROAT: No erythema or exudates. NECK: No masses, no JVD, no thyroid enlargement, no adenopathy. CHEST: No chest wall deformity. Symmetrical expansion. LUNGS: Equal air entry with no crackles, wheeze, rhonchi or dullness. CVS: Regular rate and rhythm, normal S1 and S2, no gallops, no murmurs, no rubs ABDOMEN: Soft, nontender. No hepatosplenomegaly, normal bowel sounds, no guarding or rigidity. EXTREMITIES: No clubbing, no edema, no cyanosis, 2+ pulses and upper and lower extremities. MUSCULOSKELETAL: Muscle strength and tone normal. SPINE: No scoliosis or deformity SKIN: No rashes CENTRAL NERVOUS SYSTEM: Alert and oriented -3. No focal deficits, tone is normal in all 4 extremities. PSYCHIATRIC: Alert and oriented -3. Appropriate affect. Intact judgment and insight. - Labs CBC & Chem 7: 12/13/20 03:53 12/15/20 07:22 Labs: Abnormal Lab Results - Last 24 Hours (Table) 12/15/20 Range/Units 07:22 Carbon Dioxide 35 H (22-30) mmol/L BUN 36 H (7-17) mg/dL Creatinine 1.16 H (0.52-1.04) mg/dL Glucose 128 H (74-99) mg/dL Microbiology - Last 24 Hours (Table) 12/12/20 16:55 Gram Stain - Final Sputum Sputum Culture - Final Assessment and Plan Plan: Assessment: #1. Acute hypoxic respiratory failure secondary to acute pulmonary edema requiring intubation and mechanical ventilatory support, successfully weaned and extubated on 12/12/2020, currently on 2 L of oxygen #2. Acute hypertensive emergency, improved #3. 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 No evidence of obstructive coronary disease on catheterization #6. History of hypertension #7. 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 Altered mental status on presentation related to acute hypoxic respiratory failure and hypertensive emergency, improved Plan: Today chest x-ray has been reviewed Patient received one extra dose of Lasix and continues on oral Lasix She is tolerating ambulation Although does become dyspneic and apparently had an episode of desaturation this morning with ambulation Continue diuretics and blood pressure control medications per cardiology Follow-up labs tomorrow, Accurate intake and output From pulmonary perspective patient could probably be considered for discharge h ome in the next 24 hours as long she remains stable She may need home oxygen, she will continue on oral diuretics at home Follow up with Dr. Bolaños in the office in 7-10 days I performed a history & physical examination of the patient and discussed their management with my nurse practitioner, Venessa Cmap. I reviewed the nurse practitioner's note and agree with the documented findings and plan of care. Lung sounds are positive for diminished breath sounds. The findings and the impression was discussed with the patient. I attest to the documentation by the nurse practitioner. Time with Patient: Less than 30
--- NOTE | 2020-12-15 14:32 | P.PN ---
Subjective Progress Note Date: 12/15/20 This is a 70-year-old female patient who presented to the emergency department with episode of unresponsiveness. She was initially intubated and on mechanical ventilator. There was a question of ST segment elevation and she subsequently underwent cardiac catheterization that showed no evidence of high-grade stenosis. She has since been extubated. Echocardiogram showed an ejection fraction of 50-55% with mild MR and mild TR. Upon examination the patient is sitting up in a chair. She is overall feeling okay at this time. She did have an episode of nausea with vomiting following breakfast this morning. He has been afebrile. Her heart rate has been in the 50s and 60s. Blood pressure this morning 152/63 and she is satting 95% on 2 L via nasal cannula. 12/15/2020 Patient was seen and examined resting comfortably in a chair. She is overall feeling fairly well today. Complains of some chest tenderness to palpation and movement but no symptoms of angina. Blood pressure is fairly well controlled. Most recent vitals show temperature 98.4F, heart rate 74 bpm, respiratory rate 20, blood pressure 131/79 and oxygen saturation of 95% on 2 L via nasal cannula. Labs this morning showed potassium 3.6, BUN 36 and creatinine 1.16. She is currently on amlodipine 5 mg by mouth daily, aspirin 81 mg by mouth daily, Lipitor 40 mg by mouth daily, carvedilol 25 mg by mouth twice a day, clonidine patch 0.1 mg, Lasix 20 mg by mouth twice a day, lisinopril 10 mg by mouth twice a day and Aldactone 25 mg daily. Objective - Vital Signs Vital signs: Vital Signs Temp 98.4 F 12/15/20 12:00 Pulse 74 12/15/20 12:00 Resp 20 12/15/20 12:00 BP 131/79 12/15/20 12:00 Pulse Ox 95 12/15/20 12:00 Intake & Output 12/14/20 12/15/20 12/15/20 18:59 06:59 18:59 Intake Total 358 180 Output Total 200 Balance 158 180 Weight 80.5 kg Intake: Oral 358 180 Output: Urine 200 Other: Voiding Method Toilet # Voids 1 2 ABP, PAP, CO, CI - Last Documented Arterial Blood Pressure 126/52 - Exam PHYSICAL EXAMINATION: HEENT: Head is atraumatic, normocephalic. Pupils equal, round. Neck is supple. There is no elevated jugular venous pressure. HEART EXAMINATION: Heart sounds regular, S1 and S2 normal systolic murmur. CHEST EXAMINATION: Lungs are clear to auscultation. No chest wall tenderness is noted on palpation or with deep breathing. ABDOMEN: Soft, nontender. Bowel sounds are heard. No organomegaly noted. EXTREMITIES: 2+ peripheral pulses with no evidence of peripheral edema and no calf tenderness noted. NEUROLOGIC patient is awake and alert, oriented 3 . - Labs CBC & Chem 7: 12/13/20 03:53 12/15/20 07:22 Labs: Abnormal Lab Results - Last 24 Hours (Table) 12/15/20 Range/Units 07:22 Carbon Dioxide 35 H (22-30) mmol/L BUN 36 H (7-17) mg/dL Creatinine 1.16 H (0.52-1.04) mg/dL Glucose 128 H (74-99) mg/dL Assessment and Plan Assessment: #1 episode of collapse with no evidence of significant obstructive coronary artery disease #2 hypertension #3 mild CAD #4 peripheral artery disease #5 hypokalemia Plan: From Cardiology's perspective medications were reviewed and will continue the same. Continues to monitor renal function and electrolytes, daily weights as well as intake and output. Anticipate the patient will be discharged in the next 24-48 hours. We will continue to follow the patient and provide further recommendations accordingly. [employer] [employer] note has been reviewed, I agree with a documented findings and plan of care. Patient was seen and examined.
[2020-12-15] MEDS ORDERED: MELATONIN 3 MG TABLET PO ONE (23:03)
[2020-12-16] MEDS: PANTOPRAZOLE 40 MG TABLET PO SCH (06:30)
[2020-12-16] MEDS: carvediloL 12.5 MG TAB PO SCH ×2 (06:30→17:11)
[2020-12-16] MEDS ORDERED: predniSONE 20 MG TAB PO STA (07:10)
[2020-12-16 07:57] LABS: Calcium 9.5 mg/dL (8.4-10.2); Potassium 3.8 mmol/L (3.5-5.1)
[2020-12-16] MEDS: IPRATROPIUM-ALBUTEROL 3 ML NEB INHALATION SCH ×3 (08:23→20:29)
[2020-12-16] MEDS: BUDESONIDE 0.5 MG/2 ML NEBU INHALATION SCH ×2 (08:23→20:29)
[2020-12-16] MEDS: ENOXAPARIN 40 MG/0.4 ML SYRINGE SQ SCH (09:06)
[2020-12-16] MEDS: ASPIRIN 81 MG PO SCH ×2 (09:06→09:08)
[2020-12-16] MEDS: SPIRONOLACTONE 25 MG TAB PO SCH (09:06)
[2020-12-16] MEDS: amLODIPine 5 MG TAB PO SCH (09:06)
[2020-12-16] MEDS: FUROSEMIDE 20 MG TAB PO SCH ×2 (09:06→15:41)
[2020-12-16] MEDS: ATORVASTATIN 40 MG TAB PO SCH (09:06)
[2020-12-16] MEDS: lisinopriL 10 MG TAB PO SCH ×2 (09:06→20:11)
--- NOTE | 2020-12-16 10:13 | P.DS ---
Providers Date of admission: 12/12/20 01:14 Attending physician: Kaylyn Qureshi Consults: 12/12/20 01:14 Consult Physician Routine Consulting Provider: Sheryl Garber Consult Reason/Comments: icu Do you want consulting provider notified?: Yes Consult Physician Urgent Consulting Provider: Luc Bustillos Consult Reason/Comments: STEMI Do you want consulting provider notified?: Yes Primary care physician: Nathalie Foss [facility] Course: 70-year-old the female admitted for respiratory failure and was subsequently intubated. Patient was dealing with significant anxiety due to son's seizure episode. Patient was later found unresponsive without agonal breathing was intubated and was on mechanical ventilator. Patient presently is on assist- control ventilation FiO2 of 35% PEEP of 5 tidal volume of 350. Patient had ST segment elevation in the precordial leads because of which patient underwentcardiac cath. Which did not show any significant significant coronary occlusive disease. Patient had significant pulmonary edema. CT angiogram was done rule out pulmonary embolism. Patient has significant acute phase disease consistent with pulmonary edema. Creatinine is 1.07 at this time. Baseline within normal limits. It appears to have TakoSubo.Patient had a CT of the head which did not show any significant amount except for old and supplementation. 12/13/2020 Patient is presently extubated clinically doing well presently on 2 L of nasal cannula patient is mildly wheezy. Otherwise clinically doing well. Patient is being transferred out of ICU. Patient remains IV Lasix. Patient progressed was extremely low which is being replaced. Patient blood pressure is very high patient was started on lisinopril serum creatinine appears to be within normal limits. Echocardiogram showed normal ejection fraction severe concentric left ventricular hypertrophy and Aldactone was added as well. Patient appears to have a diastolic dysfunction heart failure probably not Takoksubo. 12/14/2020 Patient is feeling much better respiratory-slaughter was complaining of upset stomach earlier today morning patient is on multiple antibiotics medications including amlodipine Coreg clonidine lisinopril patient appears to have had a hypertensive emergency on admission. Patient remains on Lasix because of that reason I will discontinue Hydrochlorothiazide patient is bit hypokalemic potassium will be replaced. Patient will be transitioned to oral Lasix patient saturations are much better today chest x-ray from yesterday showed significant improvement in pulmonary edema. We'll consult physical therapy and occupational therapy possibility of discharge tomorrow. 12/15/2020 Patient desaturated to 86% without oxygen because of which I'm giving an additional Lasix will order a chest x-ray, if we are able to wean her off oxygen by tomorrow patient will be discharged tomorrow. 12/16/2020 and patient is requesting to go home although still requiring oxygen patient has mild wheeze on exam patient did smoke in the past patient does have COPD patient may need to go home on oxygen which will be arranged. We'll do laboratory pulse ox if it's less than 88% on aberration patient will be d ischarged on home oxygen. Patient was given 1 dose of 20 mg of prednisone along with inhaled steroids prescription for inhaled steroids and being dose of prednisone will be provided upon discharge. Patient had 11 beats of the nonsustained VT. Cardiology will be informed about this and if her cleared by cardiology patient will be discharged today on home oxygen most probably PHYSICAL EXAMINATION: GENERAL: She is awake alert oriented 3 HEENT: Pupils are round and equally reacting to light. EOMI. No scleral icterus. No conjunctival pallor. Normocephalic, atraumatic. No pharyngeal erythema. No thyromegaly. CARDIOVASCULAR: S1 and S2 present. No murmurs, rubs, or gallops. PULMONARY: Chest is clear to auscultation, no wheezing or crackles. ABDOMEN: Soft, nontender, nondistended, normoactive bowel sounds. No palpable organomegaly. MUSCULOSKELETAL: No joint swelling or deformity. EXTREMITIES: No cyanosis, clubbing, or pedal edema. NEUROLOGICAL: Patient is sedated at this time SKIN: No rashes. Assessment and plan -Acute hypoxic respiratory failure secondary to pulmonary edema from chronic diastolic dysfunction with acute exacerbation. Patient is extubated on 12/13/2020. Clinically doing well patient is presently on 2 L of oxygen. We'll I am bladder pulse ox patient may require home oxygen patient appears to have COPD. -COPD with mild acute exacerbation -Cardiac shock from assessment #1 resolved now -Elevated troponins secondary to assessment #1 status post cardiac catheterization did not show any significant occlusive disease -Hypertension uncontrolled hypertensive emergency and admission with flash pulmonary edema and myocardial injury. Patient is presently on lisinopril and Norvasc and Aldactone along with Lasix. Patient Condition at Discharge: Fair Plan - Discharge Summary New Discharge Prescriptions: New lisinopriL [Zestril] 10 mg PO BID #30 tab Spironolactone [Aldactone] 25 mg PO DAILY #30 tab Aspirin 81 mg PO DAILY #30 chew carvediloL [Coreg*] 25 mg PO BID-W/MEALS #30 tab Furosemide [Lasix] 20 mg PO BID@0900,1600 #60 tab amLODIPine [Norvasc] 5 mg PO DAILY #30 tab Potassium Chloride ER [K-Dur 10] 10 meq PO DAILY #30 tab Budesonide-Formot 160-4.5 Mcg [Symbicort 160-4.5 Mcg Inhaler] 2 puff INHALATION BID #1 inhaler Albuterol Inhaler [Ventolin Hfa Inhaler] 2 puff INHALATION RT-QID PRN #1 inhaler PRN Reason: Shortness Of Breath Or Wheezing Continue Nitroglycerin Sl Tabs [Nitrostat] 0.4 mg SUBLINGUAL Q5M PRN #60 tab PRN Reason: Chest Pain rOPINIRole HCL [Requip] 0.5 mg PO HS PRN PRN Reason: CRAMPS cloNIDine HCL [Catapres] 0.1 mg PO BID Discontinued carvediloL [Coreg*] 12.5 mg PO BID-W/MEALS #30 tab hydroCHLOROthiazide [Hydrodiuril] 12.5 mg PO DAILY #30 cap Discharge Medication List Nitroglycerin Sl Tabs [Nitrostat] 0.4 mg SUBLINGUAL Q5M PRN #60 tab 07/28/18 [Rx] cloNIDine HCL [Catapres] 0.1 mg PO BID 12/12/20 [History] rOPINIRole HCL [Requip] 0.5 mg PO HS PRN 12/12/20 [History] Aspirin 81 mg PO DAILY #30 chew 12/15/20 [Rx] Furosemide [Lasix] 20 mg PO BID@0900,1600 #60 tab 12/15/20 [Rx] Potassium Chloride ER [K-Dur 10] 10 meq PO DAILY #30 tab 12/15/20 [Rx] Spironolactone [Aldactone] 25 mg PO DAILY #30 tab 12/15/20 [Rx] amLODIPine [Norvasc] 5 mg PO DAILY #30 tab 12/15/20 [Rx] carvediloL [Coreg*] 25 mg PO BID-W/MEALS #30 tab 12/15/20 [Rx] lisinopriL [Zestril] 10 mg PO BID #30 tab 12/15/20 [Rx] Albuterol Inhaler [Ventolin Hfa Inhaler] 2 puff INHALATION RT-QID PRN #1 inhaler 12/16/20 [Rx] Budesonide-Formot 160-4.5 Mcg [Symbicort 160-4.5 Mcg Inhaler] 2 puff INHALATION BID #1 inhaler 12/16/20 [Rx] Follow up Appointment(s)/Referral(s): Noah Peralta MD [STAFF PHYSICIAN] - 1 Week Pam Zelaya MD [Primary Care Provider] - 3 Days Jhonatan Bolaños DO [Doctor of Osteopathic Medicine] - 1 Week Activity/Diet/Wound Care/Special Instructions: Indigent form placed in chart, if patient is d/c on Thursday send to [facility]. Discharge Disposition: HOME SELF-CARE
--- NOTE | 2020-12-16 12:05 | PN ---
PROGRESS NOTE Mr. Quesada is a 70-year-old female who presented with respiratory distress requiring mechanical ventilation, underwent cardiac catheterization and was found to have mild coronary artery disease. Her left ventricular systolic function is preserved. She is doing well this morning. She is ambulating without difficulty. She had an episode of nonsustained ventricular tachycardia. She denies any dizziness or palpitation. She denies any nausea. Her breathing has improved. Her energy is better. She continues to have some episodes of hypoxemia. She continues to be on lisinopril 10 mg twice a day, amlodipine 5 mg daily, aspirin once a day, Lipitor 40 mg daily, Coreg 25 mg twice a day, clonidine patch 0.1 mg daily, Lasix 20 mg twice a day, Aldactone 25 mg daily. PHYSICAL EXAMINATION: VITAL SIGNS: Blood pressure running in the 140s to 150s with a heart rate in the 60s. LUNGS: No wheezes or rales. HEART: Regular rate and rhythm S1, S2. No S3. No rub. ABDOMEN: Soft and nontender. EXTREMITIES: No edema. LAB DATA: BUN and creatinine 43 and 1.06, potassium is 3.8. IMPRESSION: 1. Respiratory failure, resolved, requiring mechanical ventilation. 2. Hypertension, under better control. 3. Episode of collapse with no evidence of significant obstructive disease. 4. Hypokalemia, corrected. 5. Hypoxemia. RECOMMENDATION: From the cardiac standpoint will continue present therapy. I would expect she should be able to be discharged home soon and follow up with Dr. Bustillos next week. MMFRANSICOL / KENIAN: [id number] /
--- NOTE | 2020-12-16 12:28 | P.PN ---
Subjective Progress Note Date: 12/16/20 Principal diagnosis: Hypertensive emergency, altered mental status, shortness of breath This is a 70-year-old female patient with a known history of hypertension and follows with Dr. Zelaya as her primary care provider. She was brought into the emergency room just after midnight this morning with significant anxiety due to her son having a seizure. In the ER she became unresponsive and developed agonal breathing she was subsequently intubated and placed on mechanical ventilator. EKG showed acute ST segment elevation in the precordial leads and she was felt to be a ST segment elevation myocardial infarction and taken to the [facility]. Coronaries were only mildly obstructive. She was felt to possibly have a sudden cardiac arrhythmia related to acute emotional distress while her son was having a seizure. 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 Computed tomography scan of the brain revealed old left frontal lobe encephalomalacia. No acute intracranial abnormalities. She is seen today in consultation in the intensive care unit. She remains intubated on mechanical ventilator. Assist-control mode. Rate of 24. Tidal volume 350. FiO2 50% and a PEEP of 5. Morning blood gases revealed a pO2 of 60, pCO2 50, pH 7.27. She is sedated on propofol at 30 mcg/kg/m. She is requiring norepinephrine at 1 mcg/m. 0.9 normal saline at 70 mL per hour. Chest x-ray reveals bilateral acute pulmonary edema. CT angiogram ruled out pulmonary embolism. Moderate to severe pulmonary airspace edema. White count 16.0. Hemoglobin 4.2. Sodium 139. Potassium 4.5. Creatinine 1.07. The patient is seen today 12/13/2020 in follow-up in the intensive care unit. She was successfully extubated yesterday. She is currently on 2 L nasal cannula and maintaining O2 saturations in the 90s. She is awake and alert in no acute distress. She is somewhat bronchospastic and wheezy today. Chest x-ray shows improvement in the bilateral airspace disease, edema. Sputum culture pending. White count 13.0. Hemoglobin 14.3. Platelet count 152,000. Sodium 140. Po tassium 2.8. Creatinine 1.00. AST 29. ALT 18. She remains on IV diuretics. Lovenox for DVT prophylaxis. Remains somewhat hypertensive. On 12/14/2020 patient seen in follow-up on selective care unit, she is awake and alert, oriented 3, she is sitting up in the recliner, she is currently on 2 L of oxygen, she is breathing quite comfortably, her pulse ox is 96%, vital signs are stable, blood pressures much better control, is 142/60 this afternoon, she is afebrile, heart rate is controlled. She is status post cardiac catheterization which showed no evidence of significant obstructive coronary disease. Cardiology recommendations were noted, Norvasc was added, patient is on clonidine patch 0.1 mg per 24 hours, carvedilol 25 mg twice a day, and Aldactone 25 mg daily. Today's labs have been noted, potassium is 3.4, this was replaced per protocol, renal function is relatively stable with BUN of 28 and creatinine of 1.08. No coughing, no phlegm production, no wheezing, last chest x-ray was done yesterday which showed improved aeration and volume status. Distal continues to be in negative fluid balance of 685 ML over last 24 hours. She remains on oral Lasix 40 mg twice daily. She continues on breathing treatments. On 12/15/2020 patient seen in follow-up on selective care unit, she is on 2 L of oxygen pulse ox is 94-95%, vital signs have been stable, she has been ambulating to the bathroom, reports of chest pain, or worsening shortness of breath, today's chest x-ray shows bibasilar left greater than the right opacities slightly worsened compared to previous chest x-ray on the basis of atelectasis, developing infiltrate could not be entirely excluded. The patient has had no fever or chills, no cough or wheezing. Currently on Lasix, which has been transitioned to oral Lasix 20 mg twice daily, she has received one extra dose of IV Lasix today, she remains on nebulized bronchodilators. Patient had episode of desaturation this morning, her discharge has been held. On 12/16/2020 patient seen in follow-up on selective care unit, she is currently on 2 L of oxygen, she is breathing comfortably, lung sounds reveal some mild crackles very faint, at the bases, no rhonchi, no wheezes, she is currently on 2 L of oxygen pulse ox is 94%, no couplets of chest discomfort, she's had no acute events overnight. She has been diuresed, she has been on breathing treatments, no wheezing, her prednisone has been discontinued, no cough or congestion. Objective - Vital Signs Vital signs: Vital Signs Temp 98.0 F 12/16/20 12:00 Pulse 68 12/16/20 12:02 Resp 18 12/16/20 12:00 BP 149/76 12/16/20 12:00 Pulse Ox 94 L 12/16/20 12:00 Intake & Output 12/15/20 12/16/20 12/16/20 18:59 06:59 18:59 Intake Total 520 240 Balance 520 240 Weight 78.5 kg Intake: Oral 520 240 Other: Voiding Method Toilet Toilet # Voids 2 1 ABP, PAP, CO, CI - Last Documented Arterial Blood Pressure 126/52 - Exam GENERAL EXAM: Alert, active, comfortable in no apparent distress, very pleasant, 70-year-old white female, currently on 2 L of oxygen, sitting up in the recliner, HEAD: Normocephalic/atraumatic. EYES: Normal reaction of pupils, equal size. Conjunctiva pink, sclera white. NOSE: Clear with pink turbinates. THROAT: No erythema or exudates. NECK: No masses, no JVD, no thyroid enlargement, no adenopathy. CHEST: No chest wall deformity. Symmetrical expansion. LUNGS: Equal air entry with no crackles, wheeze, rhonchi or dullness. CVS: Regular rate and rhythm, normal S1 and S2, no gallops, no murmurs, no rubs ABDOMEN: Soft, nontender. No hepatosplenomegaly, normal bowel sounds, no guarding or rigidity. EXTREMITIES: No clubbing, no edema, no cyanosis, 2+ pulses and upper and lower extremities. MUSCULOSKELETAL: Muscle strength and tone normal. SPINE: No scoliosis or deformity SKIN: No rashes CENTRAL NERVOUS SYSTEM: Alert and oriented -3. No focal deficits, tone is normal in all 4 extremities. PSYCHIATRIC: Alert and oriented -3. Appropriate affect. Intact judgment and insight. - Labs CBC & Chem 7: 12/13/20 03:53 12/16/20 07:30 Labs: Abnormal Lab Results - Last 24 Hours (Table) 12/16/20 Range/Units 07:30 Chloride 97 L (98-107) mmol/L Carbon Dioxide 34 H (22-30) mmol/L BUN 43 H (7-17) mg/dL Creatinine 1.06 H (0.52-1.04) mg/dL Glucose 134 H (74-99) mg/dL Assessment and Plan Plan: Assessment: #1. Acute hypoxic respiratory failure secondary to acute pulmonary edema re quiring intubation and mechanical ventilatory support, successfully weaned and extubated on 12/12/2020, currently on 2 L of oxygen #2. Acute hypertensive emergency, improved #3. 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 No evidence of obstructive coronary disease on catheterization #6. History of hypertension #7. 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 Altered mental status on presentation related to acute hypoxic respiratory failure and hypertensive emergency, improved Plan: Patient has remained stable, Breathing comfortably Obtain home oxygen assessment Continue diuretics per cardiology recommendation From pulmonary perspective patient could probably be considered for discharge home She may need home oxygen, she will continue on oral diuretics at home Follow up with Dr. Bolaños in the office in 7-10 days I performed a history & physical examination of the patient and discussed their management with my nurse practitioner, Venessa Camp. I reviewed the nurse practitioner's note and agree with the documented findings and plan of care. Lung sounds are positive for diminished breath sounds. The findings and the impression was discussed with the patient. I attest to the documentation by the nurse practitioner. Time with Patient: Less than 30
[2020-12-17] MEDS: PANTOPRAZOLE 40 MG TABLET PO SCH (06:15)
[2020-12-17 08:15] VITALS: BP 184/74; RESP 16; TEMP 97.9
[2020-12-17] MEDS: ASPIRIN 81 MG PO SCH (08:29)
[2020-12-17] MEDS: carvediloL 12.5 MG TAB PO SCH (08:31)
[2020-12-17] MEDS: SPIRONOLACTONE 25 MG TAB PO SCH (08:31)
[2020-12-17] MEDS: ATORVASTATIN 40 MG TAB PO SCH (08:31)
[2020-12-17] MEDS: FUROSEMIDE 20 MG TAB PO SCH (08:31)
[2020-12-17] MEDS: amLODIPine 5 MG TAB PO SCH (08:31)
[2020-12-17] MEDS: ENOXAPARIN 40 MG/0.4 ML SYRINGE SQ SCH (08:32)
[2020-12-17] MEDS: lisinopriL 10 MG TAB PO SCH (08:32)
[2020-12-17] MEDS: IPRATROPIUM-ALBUTEROL 3 ML NEB INHALATION SCH ×2 (09:14→13:08)
[2020-12-17] MEDS: BUDESONIDE 0.5 MG/2 ML NEBU INHALATION SCH (09:14)
[2020-12-17 09:31] VITALS: PULSE 62
--- NOTE | 2020-12-17 12:47 | P.PN ---
Subjective This is a 70-year-old female patient with a past medical history of hypertension and peripheral artery disease who presented to the emergency department with episode of unresponsiveness. She was initially intubated and on mechanical ventilator. There was a question of ST segment elevation and she subsequently underwent cardiac catheterization that showed mild non obstructive disease, no evidence of high-grade stenosis. Echocardiogram showed an ejection fraction of 50-55% with mild MR and mild TR. Upon examination the patient is sitting up in a chair. She is overall feeling okay at this time. She has been afebrile. Her heart rate has been in the 50s and 60s. Blood pressure this morning 152/63 and she is satting 95% on 2 L via nasal cannula. Laboratory data reviewed from yesterday, sodium 137, potassium 3.8, BUN 43, serum creatinine 1.06, magnesium 2.0. Patient currently maintained on amlodipine 5 mg daily, atorvastatin 40 mg daily, aspirin 81 mg daily, carvedilol 25 mg twice a day, Lasix 20 mg twice a day, lisinopril 10 mg twice a day, spironolactone 25 mg daily GENERAL: Well-appearing, well-nourished and in no acute distress. NECK: Supple without JVD or thyromegaly. LUNGS: Breath sounds clear to auscultation bilaterally. Respiration equal and unlabored. No wheezes, rales or rhonchi. HEART: Regular rate and rhythm without murmurs, rubs or gallops. S1 and S2 heard. EXTREMITIES: Normal range of motion, no edema. No clubbing or cyanosis. Peripheral pulses intact. SKIN: Right femoral cath site, clean dry intact no hematoma 2+ peripheral pulses. ASSESSMENT Episode of collapse with no evidence of significant obstructive coronary artery disease Mild nonobstructive coronary artery disease Acute hypoxic was draped failure, resolved, requiring mechanical ventilation Hypokalemia, resolved History of hypertension Peripheral artery disease PLAN From a cardiology perspective, patient is stable. Continue current cardiac medications. Patient to follow up in the office as an outpatient. Objective - Vital Signs Vital signs: Vital Signs Temp 97.9 F 12/17/20 08:00 Pulse 62 12/17/20 09:31 Resp 16 12/17/20 09:48 BP 184/74 12/17/20 08:00 Pulse Ox 92 L 12/17/20 11:12 Intake & Output 12/16/20 12/17/20 12/17/20 18:59 06:59 18:59 Intake Total 660 240 Balance 660 240 Weight 77.8 kg Intake: Oral 660 240 Other: Voiding Method Toilet Toilet # Voids 1 1 1 ABP, PAP, CO, CI - Last Documented Arterial Blood Pressure 126/52 - Labs CBC & Chem 7: 12/13/20 03:53 12/16/20 07:30
--- NOTE | 2020-12-17 13:11 | P.PN ---
Subjective Progress Note Date: 12/17/20 Principal diagnosis: Hypertensive emergency, altered mental status, shortness of breath This is a 70-year-old female patient with a known history of hypertension and follows with Dr. Zelaya as her primary care provider. She was brought into the emergency room just after midnight this morning with significant anxiety due to her son having a seizure. In the ER she became unresponsive and developed agonal breathing she was subsequently intubated and placed on mechanical ventilator. EKG showed acute ST segment elevation in the precordial leads and she was felt to be a ST segment elevation myocardial infarction and taken to the [facility]. Coronaries were only mildly obstructive. She was felt to possibly have a sudden cardiac arrhythmia related to acute emotional distress while her son was having a seizure. 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 Computed tomography scan of the brain revealed old left frontal lobe encephalomalacia. No acute intracranial abnormalities. She is seen today in consultation in the intensive care unit. She remains intubated on mechanical ventilator. Assist-control mode. Rate of 24. Tidal volume 350. FiO2 50% and a PEEP of 5. Morning blood gases revealed a pO2 of 60, pCO2 50, pH 7.27. She is sedated on propofol at 30 mcg/kg/m. She is requiring norepinephrine at 1 mcg/m. 0.9 normal saline at 70 mL per hour. Chest x-ray reveals bilateral acute pulmonary edema. CT angiogram ruled out pulmonary embolism. Moderate to severe pulmonary airspace edema. White count 16.0. Hemoglobin 4.2. Sodium 139. Potassium 4.5. Creatinine 1.07. The patient is seen today 12/13/2020 in follow-up in the intensive care unit. She was successfully extubated yesterday. She is currently on 2 L nasal cannula and maintaining O2 saturations in the 90s. She is awake and alert in no acute distress. She is somewhat bronchospastic and wheezy today. Chest x-ray shows improvement in the bilateral airspace disease, edema. Sputum culture pending. White count 13.0. Hemoglobin 14.3. Platelet count 152,000. Sodium 140. Po tassium 2.8. Creatinine 1.00. AST 29. ALT 18. She remains on IV diuretics. Lovenox for DVT prophylaxis. Remains somewhat hypertensive. On 12/14/2020 patient seen in follow-up on selective care unit, she is awake and alert, oriented 3, she is sitting up in the recliner, she is currently on 2 L of oxygen, she is breathing quite comfortably, her pulse ox is 96%, vital signs are stable, blood pressures much better control, is 142/60 this afternoon, she is afebrile, heart rate is controlled. She is status post cardiac catheterization which showed no evidence of significant obstructive coronary disease. Cardiology recommendations were noted, Norvasc was added, patient is on clonidine patch 0.1 mg per 24 hours, carvedilol 25 mg twice a day, and Aldactone 25 mg daily. Today's labs have been noted, potassium is 3.4, this was replaced per protocol, renal function is relatively stable with BUN of 28 and creatinine of 1.08. No coughing, no phlegm production, no wheezing, last chest x-ray was done yesterday which showed improved aeration and volume status. Distal continues to be in negative fluid balance of 685 ML over last 24 hours. She remains on oral Lasix 40 mg twice daily. She continues on breathing treatments. On 12/15/2020 patient seen in follow-up on selective care unit, she is on 2 L of oxygen pulse ox is 94-95%, vital signs have been stable, she has been ambulating to the bathroom, reports of chest pain, or worsening shortness of breath, today's chest x-ray shows bibasilar left greater than the right opacities slightly worsened compared to previous chest x-ray on the basis of atelectasis, developing infiltrate could not be entirely excluded. The patient has had no fever or chills, no cough or wheezing. Currently on Lasix, which has been transitioned to oral Lasix 20 mg twice daily, she has received one extra dose of IV Lasix today, she remains on nebulized bronchodilators. Patient had episode of desaturation this morning, her discharge has been held. On 12/16/2020 patient seen in follow-up on selective care unit, she is currently on 2 L of oxygen, she is breathing comfortably, lung sounds reveal some mild crackles very faint, at the bases, no rhonchi, no wheezes, she is currently on 2 L of oxygen pulse ox is 94%, no couplets of chest discomfort, she's had no acute events overnight. She has been diuresed, she has been on breathing treatments, no wheezing, her prednisone has been discontinued, no cough or congestion. On 12/17/2020 patient seen in follow-up on selective care unit, she sits up in the recliner, breathing comfortably, she is currently on room air her pulse ox is 92% at rest, and 91% with exercise. Patient did not qualify for home oxygen, lung sounds are positive for minimal basilar crackles, and diminished breath sounds at the bases, no wheezing, no coughing, no complaints of chest pain, she is on Lasix 20 mg twice daily, her weight is trending down. She has been tolerating ambulation, she's been ambulating to the bathroom. Patient has been started on Coreg 25 mg twice a day, lisinopril 10 mg twice a day, oral Lasix as mentioned above, she is on a clonidine patch, she is on Lipitor and aspirin and Norvasc. Her steroids have been discontinued. Breathing has significantly improved. Chest x-ray today, his labs have been reviewed showing slightly improved renal function. Her BUN is 43, creatinine is 1.06. Objective - Vital Signs Vital signs: Vital Signs Temp 97.9 F 12/17/20 08:00 Pulse 62 12/17/20 09:31 Resp 16 12/17/20 09:48 BP 184/74 12/17/20 08:00 Pulse Ox 92 L 12/17/20 11:12 Intake & Output 12/16/20 12/17/20 12/17/20 18:59 06:59 18:59 Intake Total 660 780 Balance 660 780 Weight 77.8 kg Intake: Oral 660 780 Other: Voiding Method Toilet Toilet # Voids 1 1 1 ABP, PAP, CO, CI - Last Documented Arterial Blood Pressure 126/52 - Exam GENERAL EXAM: Alert, active, comfortable in no apparent distress, very pleasant, 70-year-old white female, currently room air sitting up in the recliner, HEAD: Normocephalic/atraumatic. EYES: Normal reaction of pupils, equal size. Conjunctiva pink, sclera white. NOSE: Clear with pink turbinates. THROAT: No erythema or exudates. NECK: No masses, no JVD, no thyroid enlargement, no adenopathy. CHEST: No chest wall deformity. Symmetrical expansion. LUNGS: Equal air entry with no crackles, wheeze, rhonchi or dullness. CVS: Regular rate and rhythm, normal S1 and S2, no gallops, no murmurs, no rubs ABDOMEN: Soft, nontender. No hepatosplenomegaly, normal bowel sounds, no guarding or rigidity. EXTREMITIES: No clubbing, no edema, no cyanosis, 2+ pulses and upper and lower extremities. MUSCULOSKELETAL: Muscle strength and tone normal. SPINE: No scoliosis or deformity SKIN: No rashes CENTRAL NERVOUS SYSTEM: Alert and oriented -3. No focal deficits, tone is normal in all 4 extremities. PSYCHIATRIC: Alert and oriented -3. Appropriate affect. Intact judgment and insight. - Labs CBC & Chem 7: 12/13/20 03:53 12/16/20 07:30 Assessment and Plan Plan: Assessment: #1. Acute hypoxic respiratory failure secondary to acute pulmonary edema requiring intubation and mechanical ventilatory support, successfully weaned and extubated on 12/12/2020, currently on room air #2. Acute hypertensive emergency, improved #3. 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 No evidence of obstructive coronary disease on catheterization #6. History of hypertension #7. 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 Altered mental status on presentation related to acute hypoxic respiratory failure and hypertensive emergency, improved Plan: No acute events overnight Patient is breathing comfortably Did not qualify for home oxygen She has been transitioned to oral Lasix Maintaining negative fluid balance Outpatient follow-up with Dr. Bolaños in the office Clear for discharge from pulmonary perspective I performed a history & physical examination of the patient and discussed their management with my nurse practitioner, Venessa Camp. I reviewed the nurse practitioner's note and agree with the documented findings and plan of care. Lung sounds are positive for diminished breath sounds. The findings and the impression was discussed with the patient. I attest to the documentation by the nurse practitioner. Time with Patient: Less than 30
== END 2020-12-17 14:53 | disposition home or self-care (01) | DRG 286 ==
LOC: SUPCPDRO 00:21 → EC 00:21 → 2SICU 01:14 → 3SCARD 12-13 14:15
PROVIDERS: ADMIT Hospitalist; ATTEND Hospitalist
PROC: 0BH17EZ Insertion of Endotracheal Airway into Trachea, Via Natural or Artificial Opening (ICD-10-PCS; 2020-12-12)
PROC: 3E033XZ Introduction of Vasopressor into Peripheral Vein, Percutaneous Approach (ICD-10-PCS; 2020-12-12)
PROC: B2111ZZ Fluoroscopy of Multiple Coronary Arteries using Low Osmolar Contrast (ICD-10-PCS; 2020-12-12)
PROC: 5A1935Z Respiratory Ventilation, Less than 24 Consecutive Hours (ICD-10-PCS; 2020-12-12)
PROC: 4A023N7 Measurement of Cardiac Sampling and Pressure, Left Heart, Percutaneous Approach (ICD-10-PCS; principal; 2020-12-12 01:33)
DX: I11.0 Hypertensive heart disease with heart failure (principal); J96.01 Acute respiratory failure with hypoxia; R57.0 Cardiogenic shock; I67.4 Hypertensive encephalopathy; I16.1 Hypertensive emergency; I47.2 Ventricular tachycardia; J44.1 Chronic obstructive pulmonary disease with (acute) exacerbation; I25.10 Atherosclerotic heart disease of native coronary artery without angina pectoris; I73.9 Peripheral vascular disease, unspecified; I50.33 Acute on chronic diastolic (congestive) heart failure; E87.6 Hypokalemia; I51.81 Takotsubo syndrome; Z79.82 Long term (current) use of aspirin; Z79.899 Other long term (current) drug therapy; Z87.891 Personal history of nicotine dependence
CPT/HCPCS: 31500; 36415; 36600; 70450; 71045; 71275; 74177; 80048; 80053; 80061; 81001; 82550; 82805; 83605; 83735; 83880; 84100; 84132; 84443; 84484; 85025; 85027; 85610; 85730; 87070; 87205; 93005; 93306; 93458; 94002; 94640; 94760; 96374; 96375; 99291